=== PATIENT | male | born 1955 | race Caucasian/White ===

== ENCOUNTER → 2020-09-23 00:58 | Outpatient (CLI) | payer OTHER, SELFPAY ==
[2020-09-23 19:43] LABS: SARS-CoV-2 RNA PCR Negative
== END ==
PROVIDERS: PCP Family Medicine; Visit Provider Internal Medicine Gastroenterology
DX: Z01.812 Encounter for preprocedural laboratory examination (principal); Z20.822 Contact with and (suspected) exposure to COVID-19
CPT/HCPCS: C9803; U0003; U0005

== ENCOUNTER 2020-09-27 00:13 | Day surgery (SDC) | payer OTHER, SELFPAY ==
[2020-09-14 13:52] VITALS: BMI 31.1
[2020-09-27 06:49] VITALS: BP 124/72; PULSE 76; RESP 16; TEMP 36.2; O2SAT 100; BMI 29.9
[2020-09-27 07:02] LABS: Glucose Point of Care 145 (65-105)
[2020-09-27] MEDS: LACTATED RINGERS 1,000 ML 150 ML IV CONT (07:06)
--- NOTE | 2020-09-27 07:57 | WPDANESEPPF ---
Anes - Initial Pre Proc Eval Procedure: Operation Date: 09/27/20 08:00 Proposed Procedures p Screening Colonoscopy - Perez Cali MD Date/Time: 09/27/20 07:57 Surgeon: Perez Cali MD Pre Op Diagnosis: Neoplasm Screening, hx of rectal polyp Patient Data Age: 65 Gender: M Height: 6 ft 1 in Weight: 102.8 kg Last Vital Signs Temp 97.2 F L 09/27/20 06:49 Pulse 76 09/27/20 06:49 Resp 16 09/27/20 06:49 BP 124/72 09/27/20 06:49 Pulse Ox 100 09/27/20 06:49 Allergies Allergy/AdvReac Type Severity Reaction Status Date / Time No Known Allergies Allergy Verified 09/27/20 06:48 Home Medications Medication Instructions Recorded Confirmed Type pen needle, diabetic 31 gauge x #30 each 04/29/19 09/27/20 History 5/16 blood sugar diagnostic #100 each 08/19/19 09/27/20 Rx insulin aspart U-100 100 unit/mL See Rx Instructions SUB-Q TID #15 01/24/20 09/27/20 Rx (3 mL) subcutaneous pen ml lancets #100 ea 07/19/20 09/27/20 Rx desoximetasone 0.25 % topical cream 1 applic TOPICAL DAILY PRN 07/27/20 09/27/20 History sodium,potassium,mag sulfates 17.5 See Rx Instructions PO .COMPLEX 08/10/20 09/27/20 Rx gram-3.13 gram-1.6 gram oral soln #354 ml cyanocobalamin (vitamin B-12) 1,000 mcg IM WEEKLY #4 vial 09/11/20 09/27/20 Rx 1,000 mcg/mL injection solution Janumet XR 1 tablet PO DAILY 09/14/20 09/27/20 History Jardiance 10 mg PO DAILY 09/14/20 09/27/20 History Levemir FlexTouch U-100 Insuln 23 unit SUBCUT DAILY 09/14/20 09/27/20 History amlodipine 5 mg PO DAILY 09/14/20 09/27/20 History aspirin [Roger Chewable Aspirin] 81 mg PO DAILY 09/14/20 09/27/20 History atorvastatin 10 mg PO DAILY 09/14/20 09/27/20 History gabapentin 200 mg PO BID 09/14/20 09/27/20 History lisinopril-hydrochlorothiazide 1 tablet PO DAILY 09/14/20 09/27/20 History syringe with needle, safety 3 mL #50 ea 09/15/20 09/27/20 Rx 25 gauge x 1 Laboratory Tests 09/27/20 06:58 POC Capillary Glucose 145 mg/dl H mg/dl (65-105) Patient hx anesthesia problems: none Family hx anesthesia problems: none PMFSH Past Medical History Medical History (Updated 09/15/20 @ 14:34 by Prisca Bolden [facility]) B12 deficiency Body mass index (bmi) 30.0-30.9, adult (03/16/18) CKD (chronic kidney disease) stage 3, GFR 30-59 ml/min Diabetic peripheral neuropathy associated with type 2 diabetes mellitus Essential (primary) hypertension Hyperlipidemia, unspecified IDDM (insulin dependent diabetes mellitus) Recurrent cellulitis of lower extremity Surgical History Surgical History History of left knee surgery 1981 - removal of bone spurs History of surgery on right wrist 1997 - repair of tendon rupture Status post skin graft right lower extremity when 3 yrs old Family History Family History Father Family history of lung cancer Family history of malignant neoplasm Mother Family history of malignant neoplasm of ovary Family history of malignant neoplasm Family history of malignant neoplasm of breast in first degree relative Social History Social History Smoking status: Never smoker Alcohol intake: current Alcohol use details: MAYBE 1 PER MONTH Substance use: never Substance use type: does not use Living arrangements: with family Additional living arrangements comments: With Gender identity (if verbalized by the patient): Male Spiritual care concerns: No Anes - Eval Final PreProcedure Day of Procedure 09/27/20 07:57 Patient weight: obese Heart: regular rate and rhythm Lungs: clear to auscultation Airway: Mallampati scale class II Neurological: alert and oriented Last oral intake: >/= 8 hours ASA classification: III Emergent: no Anesthetic plan: proceed Anesthesia type and monitoring: gener
--- NOTE | 2020-09-27 08:01 | PM.HPGS ---
History of Present Illness History of Present Illness Consent: Risks, benefits, and alternatives have been discussed and questions answered. Patient agrees to proceed with procedure. Chief complaint: Neoplasm Screening, hx of rectal polyp Narrative: Manjeet Vinson is a 65 year old male here for screening colonoscopy, last one 12 years ago. Review of Systems Constitutional: Constitutional: Denies headache(s) and Denies weakness Eyes: Eyes: Denies blurry vision ENT: Reports Normal hearing present, Denies headache(s) and Denies neck pain Cardiovascular: Cardiovascular: Denies chest pain and Denies dyspnea Respiratory: Respiratory: Denies dyspnea Gastrointestinal: Gastrointestinal: Reports no additional gastrointestinal complaints Genitourinary: Genitourinary: Denies dysuria Musculoskeletal: Musculoskeletal: Denies neck pain Integumentary/Breasts: Skin/Breast: Denies dry skin Neurologic: Reports Normal hearing present, Denies headache(s) and Denies weakness Psychiatric: Psychiatric: Denies anxiety Endocrine: Endocrine: Denies change in body appearance Hematologic/Lymphatic: Hematologic/Lymphatic: Denies easy bleeding Allergic/Immunologic: Allergic/Immunologic: Denies urticaria PMFSH Past Medical History Medical History (Updated 09/15/20 @ 14:34 by Prisca Bolden [facility]) B12 deficiency Body mass index (bmi) 30.0-30.9, adult (03/16/18) CKD (chronic kidney disease) stage 3, GFR 30-59 ml/min Diabetic peripheral neuropathy associated with type 2 diabetes mellitus Essential (primary) hypertension Hyperlipidemia, unspecified IDDM (insulin dependent diabetes mellitus) Recurrent cellulitis of lower extremity Surgical History Surgical History History of left knee surgery 1981 - removal of bone spurs History of surgery on right wrist 1997 - repair of tendon rupture Status post skin graft right lower extremity when 3 yrs old Family History Family History Father Family history of lung cancer Family history of malignant neoplasm Mother Family history of malignant neoplasm of ovary Family history of malignant neoplasm Family history of malignant neoplasm of breast in first degree relative Social History Social History Smoking status: Never smoker Alcohol intake: current Alcohol use details: MAYBE 1 PER MONTH Substance use: never Substance use type: does not use Living arrangements: with family Additional living arrangements comments: With Gender identity (if verbalized by the patient): Male Spiritual care concerns: No Meds Home Medications and Allergies Home Medications Medication Instructions Recorded Confirmed Type pen needle, diabetic 31 gauge x #30 each 04/29/19 09/27/20 History 5/16 blood sugar diagnostic #100 each 08/19/19 09/27/20 Rx insulin aspart U-100 100 unit/mL See Rx Instructions SUB-Q TID #15 01/24/20 09/27/20 Rx (3 mL) subcutaneous pen ml lancets #100 ea 07/19/20 09/27/20 Rx desoximetasone 0.25 % topical cream 1 applic TOPICAL DAILY PRN 07/27/20 09/27/20 History sodium,potassium,mag sulfates 17.5 See Rx Instructions PO .COMPLEX 08/10/20 09/27/20 Rx gram-3.13 gram-1.6 gram oral soln #354 ml cyanocobalamin (vitamin B-12) 1,000 mcg IM WEEKLY #4 vial 09/11/20 09/27/20 Rx 1,000 mcg/mL injection solution Janumet XR 1 tablet PO DAILY 09/14/20 09/27/20 History Jardiance 10 mg PO DAILY 09/14/20 09/27/20 History Levemir FlexTouch U-100 Insuln 23 unit SUBCUT DAILY 09/14/20 09/27/20 History amlodipine 5 mg PO DAILY 09/14/20 09/27/20 History aspirin [Roger Chewable Aspirin] 81 mg PO DAILY 09/14/20 09/27/20 History atorvastatin 10 mg PO DAILY 09/14/20 09/27/20 History gabapentin 200 mg PO BID 09/14/20 09/27/20 History lisinopril-hydrochlorothiazide 1 tablet PO DAILY 09/14/20 09/27/20 Hist
[2020-09-27 08:30] VITALS: BP 97/62; PULSE 72; RESP 18; O2SAT 96
[2020-09-27 08:40] VITALS: BP 121/78; PULSE 68; RESP 20; O2SAT 98
[2020-09-27 08:50] VITALS: BP 115/80; PULSE 65; RESP 12; O2SAT 100
== END 2020-09-27 09:00 | disposition home or self-care (01) ==
PROVIDERS: PCP Family Medicine; Visit Provider Internal Medicine Gastroenterology
PROC: 0DJD8ZZ Inspection of Lower Intestinal Tract, Via Natural or Artificial Opening Endoscopic (ICD-10-PCS; CPT 45378; principal; 2020-09-27 08:00)
DX: Z12.11 Encounter for screening for malignant neoplasm of colon (principal); K64.8 Other hemorrhoids; I12.9 Hypertensive chronic kidney disease with stage 1 through stage 4 chronic kidney disease, or unspecified chronic kidney disease; E11.22 Type 2 diabetes mellitus with diabetic chronic kidney disease; E11.42 Type 2 diabetes mellitus with diabetic polyneuropathy; N18.30 Chronic kidney disease, stage 3 unspecified; E78.5 Hyperlipidemia, unspecified; E53.8 Deficiency of other specified B group vitamins; E66.9 Obesity, unspecified; Z68.29 Body mass index [BMI] 29.0-29.9, adult; Z79.4 Long term (current) use of insulin; Z79.84 Long term (current) use of oral hypoglycemic drugs; Z79.82 Long term (current) use of aspirin
CPT/HCPCS: 45378; 82948; J2704; J7120

== ENCOUNTER 2021-02-02 14:00 | Outpatient (CLI) | payer OTHER, SELFPAY ==
--- NOTE | ~2021-02-02 | US_ITS ---
EXAMINATION: US art doppler w press LE BI DATE: 02/02/2021 14:49 INDICATION: Peripheral arterial occlusive disease with ulcerations at the left foot. TECHNIQUE: Segmental pressures and plethysmographic and Doppler waveforms of the brachial and lower e xtremity arteries were obtained. COMPARISON: 11/09/2018 FINDINGS: Right and left brachial artery pressures of 107 mm Hg and 123 mm Hg, respectively, are concordant (no rmal difference <= 30 mmHg). The right and left high-thigh pressure indices are 1.24 and 1.24, respec tively (normal > 1.2). The right ankle-brachial index (LUIS) is 1.06 (normal >= 0.9-1). The right great toe-brachial index (T BI) is 0.89 (normal >= 0.6-0.8). The right lower extremity segmental pressure gradients are normal (n ormal gradients <= 20-30 mmHg between adjacent levels on the same leg or the same levels on the two l egs). Arterial waveforms are biphasic at the right dorsalis pedis artery and triphasic at the remaini ng arteries in the right lower limb with brisk systolic upstrokes throughout. The left LUIS is 1.10. The left TBI is 0.77. The left lower extremity segmental pressure gradients are normal. Arterial waveforms are triphasic with brisk systolic upstrokes throughout. IMPRESSION: 1. Normal LUIS's and TBI's bilaterally. No significant arterial occlusive disease. Reviewed, dictated and finalized at location B. IMPRESSION: 1. Normal LUIS's and TBI's bilaterally. No significant arterial occlusive diseas e.
== END 2021-02-02 14:01 | disposition home or self-care (01) ==
PROVIDERS: PCP Family Medicine; Visit Provider Podiatrist Foot & Ankle Surgery
DX: I73.9 Peripheral vascular disease, unspecified (principal)
CPT/HCPCS: 93923

== ENCOUNTER 2021-03-10 10:43 | Outpatient (CLI) | payer OTHER, SELFPAY ==
[2021-03-10 12:15] LABS: Alanine Aminotransferase 23 U/L (4-50); Albumin Level 4.3 g/dL (3.5-5.1); Alkaline Phosphatase 84 U/L (38-126); Anion Gap 8 mmol/L (8-16); Aspartate Amino Transferase 35 U/L (17-59); Bilirubin,Total 0.6 mg/dL (0.2-1.3); Blood Urea Nitrogen 18 mg/dL (9-20); Carbon Dioxide 29 mmol/L (22-30); Chloride 105 mmol/L (98-107); Cholesterol 134 mg/dL (0-200); Estimated Glomerular Filt Rate > 60; Glucose 121 mg/dL (65-110); HDL Direct 42 mg/dL; Potassium 4.1 mmol/L (3.4-5.0); Sodium 142 mmol/L (137-145); Triglycerides 113 mg/dL (<150)
[2021-03-10 12:17] LABS: Basophils Absolute Auto 0.1 K/mm3 (0.0-0.1); Eosinophils Absolute Auto 0.1 K/mm3 (0-0.3); Eosinophils Percent Auto 1.5 % (0-4.4); Hematocrit 45.7 % (42.0-52.0); Hemoglobin 14.1 g/dL (14.0-18.0); Immature Granulocyte Absolute 0.04 K/mm3 (0.00-0.031); Immature Granulocyte Percent A 0.6 % (0-0.5); Lymphocytes Percent Auto 26.2 % (18.3-44.2); Mean Corpuscular HGB Conc 30.9 g/dl (32-36); Mean Corpuscular Hemoglobin 28.8 pg (26-34); Mean Corpuscular Volume 93.5 fl (80-100); Mean Platelet Volume 10.8 fl (7.4-10.4); Monocytes Absolute Auto 0.6 K/mm3 (0.1-0.6); Monocytes Percent Auto 7.7 % (2.6-8.5); Neutrophils Absolute Auto 4.6 K/mm3 (1.3-6.7); Platelet Count Result 203 k/mm3 (150-375); Red Blood Count 4.89 M/mm3 (4.6-6.20); Red Cell Distribution Width 14.5 % (11.5-14.5); White Blood Count 7.3 K/mm3 (4.5-10.0)
[2021-03-10 12:25] LABS: LDL Cholesterol Direct 68 mg/dL
[2021-03-10 13:13] LABS: Creatinine Urine 118.2 mg/dL
[2021-03-10 14:14] LABS: MALB Creatinine Ratio < 5.1 mg/g (0-30); Microalbumin Urine Random < 6.0 mg/L (0-16.7)
== END 2021-03-10 10:44 | disposition home or self-care (01) ==
PROVIDERS: PCP Family Medicine; Visit Provider Nurse Practitioner
DX: E78.5 Hyperlipidemia, unspecified (principal); I10 Essential (primary) hypertension; E11.9 Type 2 diabetes mellitus without complications
CPT/HCPCS: 36415; 80053; 80061; 82043; 83036; 85025

== ENCOUNTER 2021-03-12 08:43 | Outpatient (CLI) | payer OTHER, SELFPAY ==
--- NOTE | ~2021-03-12 | NM_ITS ---
EXAMINATION: NM luz elena stress w perfusion DATE: 03/12/2021 10:44 INDICATION: Abnormal EKG TECHNIQUE: Rest images were obtained following intravenous administration of 9 mCi Tc99m tetrofosmin (Myoview). The patient was infused intravenously with Lexiscan (Regadenoson). Then, 38.4 mCi Tc99m te trofosmin (Myoview) was administered intravenously, and stress images were obtained in supine positio n. Additional prone post stress images were obtained. Data was reconstructed into short axis and hori zontal and vertical long axis SPECT images. Gated SPECT images were also obtained. COMPARISON: None. FINDINGS: There is no definite reversible or fixed perfusion abnormality to suggest ischemia or infar ction. There is normal left ventricular chamber size, wall motion and ejection fraction. Left ventr icular ejection fraction measures >70%. IMPRESSION: 1. Normal myocardial perfusion at rest and during stress. 2. Left ventricular ejection fraction measuring >70%. Reviewed, dictated and finalized at location B.
--- NOTE | 2021-03-12 08:49 | EST_ITS ---
Patient Info Name: Manjeet Vinson Age: 65 years : 1955 Gender: Male Ht: 74 in Wt: 238 lbs BSA: 2.40 m2 HR: 71 bpm BP: 134 / 77 mmHg Heart Rhythm: Sinus Rhythm Exam Date: 03/12/2021 9:44 AM Exam Location: [facility] Stress Patient Status: Outpatient Admit Date: 03/12/2021 Staff Ordering Physician: Ellyn Salmeron NP Attending Provider: Ellyn Salmeron NP Exercise Technologist: Yue Orozco CT Exercise Physician: Howard Crandall MD Exam Type: CA stress luz elena w NM Study Info Indications R94.31 - Abnormal electrocardiogram ECG EKG A regadenoson stress test was performed. Summary 1. Please correlate with nuclear medicine images, reported separately. 2. No abnormal ST-T wave changes with lexiscan. Protocol: Lexiscan Stress ECG Details Stage: REST Duration (min): 0 min : 52 sec HR (bpm): 72 SBP (mmHg): 124 DBP (mmHg): 71 Stage: REST Duration (min): 6 min : 50 sec HR (bpm): 72 SBP (mmHg): 124 DBP (mmHg): 71 Stage: STAGE 1 Duration (min): 1 min : 0 sec HR (bpm): 96 SBP (mmHg): 134 DBP (mmHg): 77 Stage: RECOVERY Duration (min): 1 min : 0 sec HR (bpm): 89 SBP (mmHg): 134 DBP (mmHg): 77 Stage: RECOVERY Duration (min): 2 min : 0 sec HR (bpm): 91 SBP (mmHg): 134 DBP (mmHg): 77 Stage: RECOVERY Duration (min): 3 min : 0 sec HR (bpm): 87 SBP (mmHg): 131 DBP (mmHg): 68 Stage: RECOVERY Duration (min): 3 min : 7 sec HR (bpm): 88 SBP (mmHg): 131 DBP (mmHg): 68 Rest HR: 72 bpm Peak HR: 96 bpm Rest Sys BP: 124 mmHg Peak Sys BP: 134 mmHg Max Pred HR: 155 bpm % Max Pred HR: 62 % Target HR: 132 bpm Max RPP: 12,864 bpm*mmHg Target HR Summary: Hemodynamic response to exercise was normal BP Response: Normal blood pressure response Termination Reason: Completed protocol Cardiac Symptoms: None Total Time: 1 min : 0 sec Rest Levy BP: 71 mmHg Peak Levy BP: 77 mmHg Total Dose: 0.4 mg Resting ECG Normal sinus rhythm - normal ECG. Stress ECG No abnormal ST/T wave changes with exercise. Arrhythmias None. Report Signatures
== END 2021-03-12 08:44 | disposition home or self-care (01) ==
LOC: ANHCARD 08:46
PROVIDERS: PCP Family Medicine; Visit Provider Nurse Practitioner
DX: R94.31 Abnormal electrocardiogram [ECG] [EKG] (principal)
CPT/HCPCS: 78452; 93017; A9502

== ENCOUNTER 2021-06-18 16:52 | Outpatient (CLI) | payer OTHER, SELFPAY ==
--- NOTE | ~2021-06-18 | US_ITS ---
EXAMINATION: US venous doppler [facility] DATE: 06/18/2021 17:40 INDICATION: Lower limb pain TECHNIQUE: Sullivan scale images without and with compression and Doppler images of the bilateral lower e xtremity veins were obtained. COMPARISON: None FINDINGS: The right common femoral vein, profunda femoral vein, femoral vein, popliteal vein, peroneal trunk, p osterior tibial veins, and greater saphenous vein are patent. The left common femoral vein, profunda femoral vein, femoral vein, popliteal vein, peroneal trunk, po sterior tibial veins, and greater saphenous vein are patent. IMPRESSION: 1. Patent bilateral lower extremity veins. No evidence of deep venous thrombosis. Reviewed, dictated and finalized at location F. [employer] IMPRESSION: 1. Patent bilateral lower extremity veins. No evidence of deep venous thrombosi s.
== END 2021-06-18 16:53 | disposition home or self-care (01) ==
PROVIDERS: PCP Family Medicine; Visit Provider Podiatrist Foot & Ankle Surgery
DX: M79.662 Pain in left lower leg (principal); M79.661 Pain in right lower leg
CPT/HCPCS: 93970

== ENCOUNTER 2021-08-07 11:25 | Outpatient (RCR) | payer OTHER, SELFPAY ==
[2021-08-07 12:00] VITALS: BMI 30.4
== END 2021-10-22 09:04 | disposition home or self-care (01) ==
LOC: ANHWOC 11:25
PROVIDERS: PCP Family Medicine; Visit Provider Family Medicine
DX: E11.621 Type 2 diabetes mellitus with foot ulcer (principal); L97.529 Non-pressure chronic ulcer of other part of left foot with unspecified severity
CPT/HCPCS: 99213; G0463

== ENCOUNTER 2021-09-30 14:20 | Emergency (ER) | payer OTHER, SELFPAY ==
[2021-09-30 15:06] VITALS: BP 114/62; PULSE 91; RESP 16; TEMP 37.3; O2SAT 95
--- NOTE | 2021-09-30 16:01 | ED.GENADULT ---
HPI - General Adult General Chief complaint: Extremity Problem,Nontraumatic Stated complaint: L LEG REDNESS Source: patient Mode of arrival: ambulatory Limitations: no limitations History of Present Illness HPI narrative: Patient presents for evaluation of redness to the left leg. Symptom onset today. He states he had a temperature of 102.0 Fahrenheit yesterday. He has a hx of cellulitis in lower extremities. His current symptoms are consistent with those experienced in the past with cellulitis. He states he has a nonhealing ulcer to the left foot for which he sees mine shifter, Dr Bunn. He states he has a hx of Charcot foot and had surgical intervention in March of last year. He has had cellulitis three times in the left leg following that surgery. In the past he has been treated with Augmentin which seems to help. He noticed the redness today while in the shower. He denies any associated pain. No drainage from the leg. He had chills yesterday but has not experienced any today. No nausea or vomiting. He is diabetic. He is compliant with his janumet, jardiance 10mg daily, levemir 20 units daily and novolog 5-6 units TID with meals. He checked his BS yesterday and states reading was over 200. He checked today and reading was 180. He does not smoke. No additional complaints or concerns. Related Data Home Medications Medication Instructions Recorded Confirmed atorvastatin 10 mg tablet 10 mg PO QHS tablet 07/31/21 09/30/21 insulin detemir U-100 [Levemir 20 unit SUBCUT HS 08/07/21 09/30/21 U-100 Insulin] sitagliptin-metformin [Janumet] 1 tablet PO BID 08/07/21 09/30/21 Allergies Allergy/AdvReac Type Severity Reaction Status Date / Time No Known Allergies Allergy Verified 09/30/21 16:07 Review of Systems Review of Systems: CONSTITUTIONAL: Reports fever and chills yesterday, now resolved. Denies sweats. EYES: Denies visual changes, redness, or discharge. ENT: Denies rhinorrhea, congestion, sore throat, or otalgia. CARDIOVASCULAR: Denies chest pain, palpitations, or edema. RESPIRATORY: Denies cough or dyspnea. GASTROINTESTINAL: Denies abdominal pain, nausea, vomiting, or diarrhea. GENITOURINARY: Denies dysuria or hematuria. SKIN: Reports nonhealing ulcer to plantar aspect of left foot. Reports redness to left lower leg. Denies rash or itching. MUSCULOSKELETAL: Denies back pain, joint pain, or myalgia. NEUROLOGIC: Denies headache, numbness, dizziness, or weakness. PSYCHIATRIC: Denies anxiety or depression. [facility] Past Medical History Medical History B12 deficiency CKD (chronic kidney disease) stage 3, GFR 30-59 ml/min Diabetic peripheral neuropathy associated with type 2 diabetes mellitus Essential (primary) hypertension Hyperlipidemia, unspecified IDDM (insulin dependent diabetes mellitus) Recurrent cellulitis of lower extremity Surgical History Surgical History History of left knee surgery 1981 - removal of bone spurs History of surgery on right wrist 1997 - repair of tendon rupture S/P foot surgery, left (~03/2021) Status post skin graft right lower extremity when 3 yrs old Family History Family History Father Family history of lung cancer Family history of malignant neoplasm Mother Family history of malignant neoplasm of ovary Family history of malignant neoplasm Family history of malignant neoplasm of breast in first degree relative Social History Social History Alcohol intake: current Alcohol use details: MAYBE 1 PER MONTH Substance use: never Substance use type: does not use Additional living arrangements comments: With Gender identity (if verbalized by the patient): Male Spiritual care concerns: No Exam Narrative: GEN
== END 2021-09-30 16:15 | disposition home or self-care (01) ==
PROVIDERS: Emergency Provider Nurse Practitioner; PCP Family Medicine
DX: L03.116 Cellulitis of left lower limb (principal); I12.9 Hypertensive chronic kidney disease with stage 1 through stage 4 chronic kidney disease, or unspecified chronic kidney disease; E11.22 Type 2 diabetes mellitus with diabetic chronic kidney disease; N18.30 Chronic kidney disease, stage 3 unspecified; E11.42 Type 2 diabetes mellitus with diabetic polyneuropathy; E78.5 Hyperlipidemia, unspecified; Z79.4 Long term (current) use of insulin; Z79.84 Long term (current) use of oral hypoglycemic drugs
CPT/HCPCS: 99213; G0463

== ENCOUNTER → 2022-01-08 14:48 | Outpatient (CLI) | payer OTHER, SELFPAY ==
--- NOTE | ~2022-01-08 | MR_ITS ---
EXAMINATION: MR foot LT wo con DATE: 01/08/2022 15:47 INDICATION: Acute osteomyelitis at the left foot TECHNIQUE: Magnetic resonance imaging (MRI) of the left fore/mid foot was performed without intraveno us contrast. Sequences included axial, sagittal and coronal T1-weighted FSE, and axial and sagittal f luid sensitive FSE STIR, axial T2-weighted FS FSE and coronal PD-weighted FS FSE. COMPARISON: None FINDINGS: There is an ulceration plantar to the first metatarsophalangeal joint with approximately 6 mm diamete r defect in the plantar fascial with loss of T1 fat signal and increased fluid signal in the underlyi ng fat. No abscess. No cortical erosion or geographic loss of T1 marrow fat signal to suggest osteomy elitis in the visualized bones. Bone alignment is normal. No fracture. Polyarticular osteoarthritis, moderate to severe with cortical irregularity and subarticular cystic and edema-like changes at the n aviculocuneiform, at the tarsal metatarsal joints and first metatarsophalangeal joints and mild at se veral of the interphalangeal joints. No joint effusions. Plantar Lisfranc ligament is normal. There i s heterotopic ossification along the dorsal component of the Lisfranc ligament which may represents a couple of chronic injury. Collateral ligament complexes at the metatarsophalangeal and interphalange al joints appear normal. The flexor and extensor tendons are normal with no tenosynovitis. Fatty atro phy and diffuse muscle edema involving the intrinsic musculature of the foot consistent with likely a cute on chronic denervation change related to diabetic neuropathy. IMPRESSION: 1. Skin ulceration plantar to the first metatarsophalangeal joint with no associated abscess, osteoly sis or joint effusion to suggest a septic arthritis. 2. 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 Reviewed, dictated and finalized at location A. IMPRESSION: 1. Skin ulceration plantar to the first metatarsophalangeal joint with no assoc iated abscess, osteolysis or joint effusion to suggest a septic arthritis. 2. 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
== END ==
PROVIDERS: PCP Family Medicine; Visit Provider Podiatrist Foot & Ankle Surgery
DX: M86.172 Other acute osteomyelitis, left ankle and foot (principal); M19.072 Primary osteoarthritis, left ankle and foot
CPT/HCPCS: 73718

== ENCOUNTER 2022-01-29 11:24 | Outpatient (CLI) | payer OTHER, SELFPAY ==
[2022-01-29 19:06] LABS: Alanine Aminotransferase 21 U/L (6-50); Albumin Level 4.2 g/dL (3.5-5.1); Alkaline Phosphatase 80 U/L (38-126); Anion Gap 11 mmol/L (8-16); Aspartate Amino Transferase 34 U/L (17-59); Bilirubin,Total 0.5 mg/dL (0.2-1.3); Blood Urea Nitrogen 20 mg/dL (9-20); Calcium 8.9 mg/dL (8.4-10.2); Carbon Dioxide 27 mmol/L (22-30); Chloride 102 mmol/L (98-107); Estimated Glomerular Filt Rate 55; Glucose 126 mg/dL (65-110); Hemoglobin A1C 7.4 % (<5.7); Potassium 4.1 mmol/L (3.4-5.0); Sodium 140 mmol/L (137-145)
[2022-01-29 19:29] LABS: Vitamin D 25 Hydroxy 49.4 ng/mL
== END 2022-01-29 11:25 | disposition home or self-care (01) ==
LOC: ANHGOSHLAB 11:26
PROVIDERS: PCP Family Medicine; Visit Provider Family Medicine
DX: E11.9 Type 2 diabetes mellitus without complications (principal); I10 Essential (primary) hypertension; E78.5 Hyperlipidemia, unspecified; E55.9 Vitamin D deficiency, unspecified
CPT/HCPCS: 36415; 80053; 82306; 83036

== ENCOUNTER 2022-02-27 14:08 | Observation (INO) | payer OTHER, SELFPAY ==
[2022-02-27] VITALS (8 sets, daily range): BP systolic 92–116; BP diastolic 53–70; PULSE 77–91; RESP 18–24; TEMP 36.1–38.2; O2SAT 93–97; BMI 29.9
--- NOTE | ~2022-02-27 | MR_ITS ---
EXAMINATION: MR foot LT wo/w con DATE: 02/28/2022 15:19 INDICATION: Left foot swelling and erythema. TECHNIQUE: Magnetic resonance imaging (MRI) of the left foot was performed without and with 20 mL Mul tiHance intravenous contrast. COMPARISON: Left foot MRI 01/08/2022, radiographs 02/27/2022 FINDINGS: There is a tear of Lisfranc ligament with lateral subluxation of second metatarsal with res pect to intermediate cuneiform. No fracture. There is severe osteoarthritis of first-third tarsometat arsal joints joints and first metatarsophalangeal joint. There is mild osteoarthritis of many of the interphalangeal joints. There is an ulcer plantar to first proximal phalanx. There is cellulitis invo lving the great toe. There is nonenhancement of some of the plantar soft tissues between the first an d second digits, consistent with necrosis. There is mild tenosynovitis of flexor hallucis longus. The re is widespread moderate to severe fatty atrophy of the musculature with increased T2-weighted signa l intensity of the musculature, consistent with subacute on chronic denervation. IMPRESSION: 1. Ulcer plantar to first proximal phalanx with cellulitis and soft tissue necrosis. No evidence of o steomyelitis. 2. 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 Reviewed, dictated and finalized at location A. IMPRESSION: 1. Ulcer plantar to first proximal phalanx with cellulitis and soft tissue necr osis. No evidence of osteomyelitis. 2. 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
--- NOTE | ~2022-02-27 | XR_ITS ---
EXAMINATION: XR chest 1V portable Exam Date/Time: 02/27/2022 18:00 CDT HISTORY: hypoxia, fever Comparison: 11/29/2015. RESULT: Lines, tubes, and devices: None. Lungs and pleura: Low volumes. Right hemidiaphragm elevation. Streaky and linear bibasilar opacities . Cardiomediastinal silhouette: Stable. Other: No acute osseous or upper abdominal finding. IMPRESSION: Low lung volumes with bibasilar scar/atelectasis. Infection is not excluded. Reviewed, dictated and finalized at location K.
--- NOTE | ~2022-02-27 | XR_ITS ---
XR foot LT min 3V DATE: 02/27/2022 17:31 INDICATION: Suspected diabetic foot ulcer, plantar surface, first digit TECHNIQUE: 4 views of left foot COMPARISON: 01/08/2022 MR left foot FINDINGS: There is severe soft tissue swelling of the first digit. There is a prominent ulceration al kenneth the plantar aspect of the base of the first toe anterior to the base of the proximal phalanx. No fracture or dislocation, periosteal reaction or bone destruction is evident. There is mild osteoar thritis at the first metatarsophalangeal joint. There is more prominent osteoarthritic change at the tarsal and tarsometatarsal joints, very possibly due to neuropathic changes associated with the history of diabetes. Prominent plantar and mild posterior calcaneal enthesopathy. IMPRESSION: Severe soft tissue swelling of the first digit and prominent ulceration along the plantar aspect of the base of the first digit First metatarsophalangeal joint space is well preserved, without evidence of septic arthritis. 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 IMPRESSION: Severe soft tissue swelling of the first digit and prominent ulcera tion along the plantar aspect of the base of the first digit First metatarsophalangeal joint space is well preserved, without evidence of se ptic arthritis. 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
--- NOTE | 2022-02-27 16:05 | ED.FEVER ---
HPI - Fever General Chief Complaint: Fever Stated Complaint: fever, poss L foot infection Time Seen by Provider: 02/27/22 15:30 History of Present Illness HPI Narrative: 66-year-old male history of diabetic foot wound to the left foot presents to the emergency room for evaluation of a low-grade fever and pain to his left foot. Patient states he developed low-grade fever yesterday, coincided with redness and swelling and tenderness to his left foot. Patient states he has been going to podiatry for his chronic left foot ulcer. Related Data Home Medications Medication Instructions Recorded Confirmed sitagliptin 50 mg-metformin 1,000 1 tablet PO BID 08/07/21 01/29/22 mg tablet (Janumet) Allergies Allergy/AdvReac Type Severity Reaction Status Date / Time No Known Allergies Allergy Verified 01/29/22 10:55 Review of Systems Review of Systems: CONSTITUTIONAL: Reports fever EYES: Denies visual changes, redness, or discharge. ENT: Denies rhinorrhea, congestion, sore throat, or otalgia. CARDIOVASCULAR: Denies chest pain, palpitations, or edema. RESPIRATORY: Denies cough or dyspnea. GASTROINTESTINAL: Denies abdominal pain, nausea, vomiting, or diarrhea. GENITOURINARY: Denies dysuria or hematuria. SKIN: Denies rash or itching. MUSCULOSKELETAL: Reports left foot pain NEUROLOGIC: Denies headache, numbness, dizziness, or weakness. PSYCHIATRIC: Denies anxiety or depression. [facility] Past Medical History Medical History B12 deficiency CKD (chronic kidney disease) stage 3, GFR 30-59 ml/min Diabetic peripheral neuropathy associated with type 2 diabetes mellitus Essential (primary) hypertension Hyperlipidemia, unspecified IDDM (insulin dependent diabetes mellitus) Recurrent cellulitis of lower extremity Vitamin D deficiency Surgical History Surgical History History of left knee surgery 1981 - removal of bone spurs History of surgery on right wrist 1997 - repair of tendon rupture S/P foot surgery, left (~03/2021) Status post skin graft right lower extremity when 3 yrs old Family History Family History Father Family history of lung cancer Family history of malignant neoplasm Mother Family history of malignant neoplasm of ovary Family history of malignant neoplasm Family history of malignant neoplasm of breast in first degree relative Social History Social History Smoking status: Never smoker Alcohol intake: current Alcohol use details: MAYBE 1 PER MONTH Substance use: never Substance use type: does not use Additional living arrangements comments: With Gender identity (if verbalized by the patient): Male Spiritual care concerns: No Exam Narrative: GENERAL: Well-appearing, well-nourished, no physical limitations, and in no acute distress. HEAD: Normocephalic, atraumatic. EYES: Conjunctivae normal, PERRLA and EOMI. CHEST: Clear to auscultation. No respiratory distress. No wheezes rales or rhonchi. HEART: Regular rate and rhythm. No murmur heard. Normal peripheral pulses. ABDOMEN: Soft, nontender, nondistended, normal active bowel sounds. EXTREMITIES: LLE: Tenderness, swelling, erythema of the left foot extending up into the [place] SKIN: left foot: 1.5 cm circular ulceration over the fibular sesamoid of the plantar surface with circumferential erythema NEURO: No focal deficits. Alert and oriented x3. MAEW. CN's II-XI intact bilaterally, normal gait PSYCH: Cooperative. Normal mood and affect. Course RESIDENT PROGRAM SPECIALIST/PA Physician Supervision 1800: Discussed case with Dr. Bunn. He is recommending patient get started on Augmentin and will follow him outpatient in 1 to 2 days. 1815: Upon reexamination of the patient, it was noted that his oxygen level on room air was at 88%. Chest x-ray wa
[2022-02-27 16:55] LABS: Basophils Absolute Auto 0.1 K/mm3 (0.0-0.1); Basophils Percent Auto 0.3 % (0.2-1.2); Eosinophils Percent Auto 0.2 % (0-4.4); Hematocrit 37.9 % (42.0-52.0); Hemoglobin 12.3 g/dL (14.0-18.0); Immature Granulocyte Absolute 0.12 K/mm3 (0.00-0.031); Immature Granulocyte Percent A 0.7 % (0-0.5); Lymphocytes Percent Auto 6.8 % (18.3-44.2); Mean Corpuscular HGB Conc 32.5 g/dl (32-36); Mean Corpuscular Hemoglobin 29.5 pg (26-34); Mean Corpuscular Volume 90.9 fl (80-100); Mean Platelet Volume 9.8 fl (7.4-10.4); Monocytes Absolute Auto 1.4 K/mm3 (0.1-0.6); Monocytes Percent Auto 7.9 % (2.6-8.5); Neutrophils Absolute Auto 14.9 K/mm3 (1.3-6.7); Neutrophils Percent Auto 84.1 % (45.5-73.1); Platelet Count Result 211 k/mm3 (150-375); Red Blood Count 4.17 M/mm3 (4.6-6.20); Red Cell Distribution Width 14.5 % (11.5-14.5); White Blood Count 17.7 K/mm3 (4.5-10.0)
[2022-02-27 17:04] LABS: Lactic Acid Reflex 1.1 mmol/L (0.7-2.0)
[2022-02-27 17:07] LABS: Alanine Aminotransferase 21 U/L (6-50); Albumin Level 3.7 g/dL (3.5-5.1); Alkaline Phosphatase 80 U/L (38-126); Anion Gap 10 mmol/L (8-16); Aspartate Amino Transferase 20 U/L (17-59); Bilirubin,Total 0.8 mg/dL (0.2-1.3); Blood Urea Nitrogen 17 mg/dL (9-20); Calcium 8.8 mg/dL (8.4-10.2); Carbon Dioxide 27 mmol/L (22-30); Chloride 100 mmol/L (98-107); Estimated CRCL calculation 54 ml/min; Estimated Glomerular Filt Rate 51; Glucose 122 mg/dL (65-110); Potassium 3.4 mmol/L (3.4-5.0); Sodium 137 mmol/L (137-145)
[2022-02-27] MEDS: SODIUM CHLORIDE 0.9% IV 1,000 ML 999 ML IV CONT (18:30)
[2022-02-27] MEDS: ACETAMINOPHEN 500 MG TABLET 1000 MG PO (18:30)
[2022-02-27] MEDS: metroNIDAZOLE 500 MG/ISO 100ML 500 MG/100 ML BAG 100 MG IVPB (19:39)
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
[2022-02-27 20:19] LABS: SARS-CoV-2 RNA PCR Negative
--- NOTE | 2022-02-27 21:33 | ADMGEN ---
This patient, Manjeet Vinson, was admitted to 3 Med Surg Room 327-01. Patient/family oriented to hospital policies and general routines including ID bracelet, bed and alarms, visiting hours, pain management, procedures, bathroom and other care routines, personal items, smoking policy, room service/diet, and visiting hours. Information on how to activate the Rapid Response Team has been discussed. Patient/Family are encouraged to report perceived risks to care and to ask questions if they do not understand what they are told or what they should do.
[2022-02-28] VITALS (9 sets, daily range): BP systolic 95–154; BP diastolic 53–72; PULSE 73–82; RESP 18–22; TEMP 35.7–36.2; O2SAT 94–98
[2022-02-28 00:03] LABS: Glucose Point of Care 200 mg/dl (65-105)
[2022-02-28] MEDS: metroNIDAZOLE 500 MG/ISO 100ML 500 MG/100 ML BAG 100 MG IVPB ×3 (03:13→18:49)
[2022-02-28 06:24] LABS: Basophils Absolute Auto 0.1 K/mm3 (0.0-0.1); Basophils Percent Auto 0.4 % (0.2-1.2); Eosinophils Absolute Auto 0.1 K/mm3 (0-0.3); Eosinophils Percent Auto 0.9 % (0-4.4); Hematocrit 35.7 % (42.0-52.0); Hemoglobin 11.3 g/dL (14.0-18.0); Immature Granulocyte Absolute 0.11 K/mm3 (0.00-0.031); Immature Granulocyte Percent A 0.8 % (0-0.5); Lymphocytes Absolute Auto 1.11 K/mm3 (0.9-3.2); Lymphocytes Percent Auto 7.6 % (18.3-44.2); Mean Corpuscular HGB Conc 31.7 g/dl (32-36); Mean Corpuscular Hemoglobin 29.3 pg (26-34); Mean Corpuscular Volume 92.5 fl (80-100); Mean Platelet Volume 10.2 fl (7.4-10.4); Monocytes Percent Auto 6.9 % (2.6-8.5); Neutrophils Absolute Auto 12.2 K/mm3 (1.3-6.7); Neutrophils Percent Auto 83.4 % (45.5-73.1); Platelet Count Result 197 k/mm3 (150-375); Red Blood Count 3.86 M/mm3 (4.6-6.20); Red Cell Distribution Width 14.6 % (11.5-14.5); White Blood Count 14.6 K/mm3 (4.5-10.0)
[2022-02-28 06:33] LABS: Lactic Acid Reflex 0.9 mmol/L (0.7-2.0)
[2022-02-28 07:01] LABS: Alanine Aminotransferase 20 U/L (6-50); Albumin Level 3.1 g/dL (3.5-5.1); Alkaline Phosphatase 84 U/L (38-126); Anion Gap 8 mmol/L (8-16); Aspartate Amino Transferase 21 U/L (17-59); Bilirubin,Total 0.6 mg/dL (0.2-1.3); Blood Urea Nitrogen 18 mg/dL (9-20); Calcium 8.3 mg/dL (8.4-10.2); Carbon Dioxide 26 mmol/L (22-30); Chloride 103 mmol/L (98-107); Estimated CRCL calculation 54 ml/min; Estimated Glomerular Filt Rate 51; Glucose 149 mg/dL (65-110); Potassium 3.6 mmol/L (3.4-5.0); Sodium 137 mmol/L (137-145)
[2022-02-28 07:36] LABS: CRP 30.6 mg/dL (<1.0)
[2022-02-28 08:07] LABS: Glucose Point of Care 144 mg/dl (65-105)
[2022-02-28] MEDS: INSULIN GLARGINE (*BKC) 100 UNITS/ML 23 UNITS SUB-Q (08:49)
[2022-02-28] MEDS: ENOXAPARIN 40 MG/0.4 ML SYRINGE SUB-Q (08:52)
[2022-02-28] MEDS: EMPAGLIFLOZIN 10 MG TABLET PO (08:56)
[2022-02-28] MEDS: CHOLECALCIFEROL 1,000 UNITS TABLET 2000 UNITS PO (08:56)
[2022-02-28] MEDS: ASPIRIN 81 MG CHEWABLE TABLET PO (08:56)
[2022-02-28] MEDS: GABAPENTIN 100 MG CAPSULE 200 MG PO ×2 (08:56→16:48)
[2022-02-28] MEDS: SILVERGEL (ELTA) 45 ML 1 APPLIC TOPICAL (10:09)
[2022-02-28 11:34] LABS: Glucose Point of Care 155 mg/dl (65-105)
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
--- NOTE | 2022-02-28 15:04 | PM.IMPN ---
Progress Note: A&P Assessment and Plan (1) Cellulitis: Code(s): L03.90 - Cellulitis, unspecified Status: Acute Assessment and Plan: -diabetic foot ulcer protocol started with cefepime, Flagyl and vancomycin. - Wound and blood cultures pending. -wound care consult performed, continue wound gel and dressing as ordered. - Consult surgery for possible debridement. (2) Diabetic ulcer of left foot: Code(s): E11.621 - Type 2 diabetes mellitus with foot ulcer; L97.529 - Non-pressure chronic ulcer of other part of left foot with unspecified severity Status: Acute Assessment and Plan: -as mentioned above the patient was started on cefepime, Flagyl, vancomycin as per diabetic foot ulcer protocol. -wound and blood cultures are pending. -Follow wound care orders. (3) IDDM (insulin dependent diabetes mellitus): Status: Acute Assessment and Plan: - Pt. is Type 2 DM with chcf use of Insulin. -continue with his long-acting insulin - Increase to moderate dose SSI for tighter glucose control. -his A1c was 7.4 last month. -Jardiance continue -Hypoglycemic protocol. (4) Diabetic peripheral neuropathy associated with type 2 diabetes mellitus: Code(s): E11.42 - Type 2 diabetes mellitus with diabetic polyneuropathy Status: Acute Assessment and Plan: -Continue current DM regimen. -Continue Gabapentin. (5) Hyperlipidemia, unspecified: Qualifiers: Hyperlipidemia type: unspecified Qualified Code(s): E78.5 - Hyperlipidemia, unspecified Code(s): E78.5 - Hyperlipidemia, unspecified Status: Acute Assessment and Plan: -Continue Statin therapy. (6) Essential (primary) hypertension: Code(s): I10 - Essential (primary) hypertension Status: Acute Assessment and Plan: - Hold Lisinopril as pt's BP has been running low. - Hold ACEI as pt's creatinine is 1.4. - Continue other home BP meds and monitor BP with VS, altering regimen as needed as the clinical scenario unfolds. - Hold Metformin. (7) CKD (chronic kidney disease) stage 3, GFR 30-59 ml/min: Qualifiers: Chronic kidney disease stage 3 subtype: unspecified whether 3a or 3b Qualified Code(s): N18.30 - Chronic kidney disease, stage 3 unspecified Code(s): N18.30 - Chronic kidney disease, stage 3 unspecified Status: Acute Assessment and Plan: - Metformin, Sitaglipin and Lisinopril are all held. - Monitor labs Time Spent With Patient Time with patient: 15 - 25 minutes Subjective Date/time seen: 02/28/22 1015 This pt. was examined at the bedside today in interval assessment since being admitted to the hospital with diabetic wounds to the bottom of his left foot. He has had as open wound to the bottom of the left foot on the ball of the foot since March of 2021 when he reportedly had a piece of bone removed because of infection in it. He has been followed by Dr. Bunn for the past couple of months for a wound between the left great toe and second toe that has continues to worsen, has started to turn dark and on Friday had worsening of redness, some drainage and worsening of edema prompting the patient to call his Podiatrists office who in turn sent him to the ER. Here he was admitted and is undergoing workup and treatment for diabetic foot wound. He has been evaluated by the wound nurse who recommends silver gel and gauze. In addition, they recommend possible further imaging. We have consulted surgery and will appreciate what they recommend for imaging as plain films do not identify any bony destruction. Pt. is receiving Vanc, Flagyl and Cefepime. He will have his glucose control tightened for healing optimization. He has no complaints today of pain, dyspnea or any other concerns. Review of Systems Review of Systems: All systems reviewed & are unremarkable except as noted in HPI and below Exam Const: General: comfortable and no acute distress
[2022-02-28 16:11] LABS: Glucose Point of Care 173 mg/dl (65-105)
[2022-02-28] MEDS: ATORVASTATIN 10 MG TABLET PO (20:06)
[2022-02-28 20:16] LABS: Glucose Point of Care 183 mg/dl (65-105)
[2022-03-01 00:36] VITALS: BP 121/64; PULSE 81; RESP 16; TEMP 36.4; O2SAT 94
[2022-03-01] MEDS: metroNIDAZOLE 500 MG/ISO 100ML 500 MG/100 ML BAG 100 MG IVPB ×3 (03:01→20:28)
[2022-03-01 06:42] VITALS: BP 125/65; PULSE 74; RESP 18; TEMP 36.5; O2SAT 96
[2022-03-01 07:10] LABS: Basophils Absolute Auto 0.1 K/mm3 (0.0-0.1); Basophils Percent Auto 0.6 % (0.2-1.2); Eosinophils Absolute Auto 0.2 K/mm3 (0-0.3); Hematocrit 35.5 % (42.0-52.0); Hemoglobin 11.2 g/dL (14.0-18.0); Immature Granulocyte Absolute 0.07 K/mm3 (0.00-0.031); Immature Granulocyte Percent A 0.7 % (0-0.5); Lymphocytes Absolute Auto 1.14 K/mm3 (0.9-3.2); Lymphocytes Percent Auto 11.8 % (18.3-44.2); Mean Corpuscular HGB Conc 31.5 g/dl (32-36); Mean Corpuscular Hemoglobin 29.2 pg (26-34); Mean Corpuscular Volume 92.4 fl (80-100); Mean Platelet Volume 10.2 fl (7.4-10.4); Monocytes Absolute Auto 0.7 K/mm3 (0.1-0.6); Monocytes Percent Auto 6.9 % (2.6-8.5); Neutrophils Absolute Auto 7.6 K/mm3 (1.3-6.7); Platelet Count Result 229 k/mm3 (150-375); Red Blood Count 3.84 M/mm3 (4.6-6.20); Red Cell Distribution Width 14.5 % (11.5-14.5); White Blood Count 9.7 K/mm3 (4.5-10.0)
[2022-03-01 07:16] LABS: Alanine Aminotransferase 18 U/L (6-50); Albumin Level 3.1 g/dL (3.5-5.1); Alkaline Phosphatase 72 U/L (38-126); Anion Gap 10 mmol/L (8-16); Aspartate Amino Transferase 19 U/L (17-59); Bilirubin,Total 0.5 mg/dL (0.2-1.3); Blood Urea Nitrogen 20 mg/dL (9-20); Calcium 8.5 mg/dL (8.4-10.2); Carbon Dioxide 23 mmol/L (22-30); Chloride 105 mmol/L (98-107); Estimated CRCL calculation 68 ml/min; Estimated Glomerular Filt Rate > 60; Glucose 137 mg/dL (65-110); Magnesium 2.2 mg/dL (1.6-2.3); Potassium 3.6 mmol/L (3.4-5.0); Sodium 138 mmol/L (137-145)
[2022-03-01 07:49] LABS: Glucose Point of Care 142 mg/dl (65-105)
[2022-03-01] MEDS: ASPIRIN 81 MG CHEWABLE TABLET PO (09:14)
[2022-03-01] MEDS: EMPAGLIFLOZIN 10 MG TABLET PO (09:14)
[2022-03-01] MEDS: GABAPENTIN 100 MG CAPSULE 200 MG PO ×2 (09:14→17:07)
[2022-03-01] MEDS: CHOLECALCIFEROL 1,000 UNITS TABLET 2000 UNITS PO (09:14)
[2022-03-01] MEDS: ENOXAPARIN 40 MG/0.4 ML SYRINGE SUB-Q (09:14)
[2022-03-01] MEDS: amLODIPine BESYLATE 5 MG TABLET PO (09:14)
[2022-03-01] MEDS: SILVERGEL (ELTA) 45 ML 1 APPLIC TOPICAL (09:15)
[2022-03-01 11:39] LABS: Glucose Point of Care 268 mg/dl (65-105)
[2022-03-01] MEDS: INSULIN ASPART (*BKC) 100 UNITS/ML SUB-Q (11:53)
--- NOTE | 2022-03-01 12:06 | PM.IMPN ---
Progress Note: A&P Assessment and Plan (1) Cellulitis: Code(s): L03.90 - Cellulitis, unspecified Status: Acute Assessment and Plan: -diabetic foot ulcer protocol started with cefepime, Flagyl and vancomycin. - Wound and blood cultures pending. -wound care consult performed, continue wound gel and dressing as ordered. - Consult surgery for possible debridement. - 03/01: Surgery clears for discharge with oral abx when ok with medicine for follow up with wound on 03/07 for debridement. (2) Diabetic ulcer of left foot: Code(s): E11.621 - Type 2 diabetes mellitus with foot ulcer; L97.529 - Non-pressure chronic ulcer of other part of left foot with unspecified severity Status: Acute Assessment and Plan: -as mentioned above the patient was started on cefepime, Flagyl, vancomycin as per diabetic foot ulcer protocol. -wound and blood cultures are pending. -Follow wound care orders. (3) IDDM (insulin dependent diabetes mellitus): Status: Acute Assessment and Plan: - Pt. is Type 2 DM with half-way use of Insulin. -continue with his long-acting insulin - Increase to high dose SSI for tighter glucose control. -his A1c was 7.4 last month. -Jardiance continue -Hypoglycemic protocol. (4) Diabetic peripheral neuropathy associated with type 2 diabetes mellitus: Code(s): E11.42 - Type 2 diabetes mellitus with diabetic polyneuropathy Status: Acute Assessment and Plan: -Continue current DM regimen. -Continue Gabapentin. (5) Hyperlipidemia, unspecified: Qualifiers: Hyperlipidemia type: unspecified Qualified Code(s): E78.5 - Hyperlipidemia, unspecified Code(s): E78.5 - Hyperlipidemia, unspecified Status: Acute Assessment and Plan: -Continue Statin therapy. (6) Essential (primary) hypertension: Code(s): I10 - Essential (primary) hypertension Status: Acute Assessment and Plan: - Hold Lisinopril as pt's BP has been running low. - Hold ACEI as pt's creatinine is 1.4. - Continue other home BP meds and monitor BP with VS, altering regimen as needed as the clinical scenario unfolds. - Hold Metformin. (7) CKD (chronic kidney disease) stage 3, GFR 30-59 ml/min: Qualifiers: Chronic kidney disease stage 3 subtype: unspecified whether 3a or 3b Qualified Code(s): N18.30 - Chronic kidney disease, stage 3 unspecified Code(s): N18.30 - Chronic kidney disease, stage 3 unspecified Status: Acute Assessment and Plan: - Metformin, Sitaglipin and Lisinopril are all held. - Monitor labs Time Spent With Patient Time with patient: 15 - 25 minutes Subjective Date/time seen: 03/01/22 1140 This pt. was examined at the bedside in interval assessment. He has no new complaints today except questions regarding his insulin. He had an MRI that demonstrated no signs of infection in the bone, but there was infection and necrosis in the soft tissue. He is receiving Vanc, Flagyl and Cefepime. Preliminary wound cultures growing Gram positive bacilli, and gram positive cocci in chains. ID is pending. Blood culture is pending and preliminarily negative. VSS, and he does not appear to be septic. Surgery was consulted and felt that he could go home with oral abx. However, pt. is agreeable to staying until tomorrow to see if we can get an identification. He has no CP, dyspnea, N/V/D, urinary complaints. Review of Systems Review of Systems: All systems reviewed & are unremarkable except as noted in HPI and below Exam Const: General: comfortable and no acute distress HENMT: Ears: TM's normal bilaterally General nose exam: Normal nares present Mouth: Yes moist mucous membranes Eyes: General: appearance normal, both eyes and all related structures Sclera: sclerae normal Pupils: Equal, round and reactive pupils present EOM: EOMs intact bilaterally Neck: Neck: supple and No no JVD Thyroid: thyroid normal Carotids: no br
[2022-03-01 13:40] VITALS: BP 133/74; PULSE 72; RESP 14; TEMP 36.4; O2SAT 99
--- NOTE | 2022-03-01 14:33 | PM.PNGS ---
Progress Note: A&P Assessment and Plan (1) Diabetic ulcer of left foot: Code(s): E11.621 - Type 2 diabetes mellitus with foot ulcer; L97.529 - Non-pressure chronic ulcer of other part of left foot with unspecified severity Status: Acute Assessment and Plan: MRI reviewed, exam improved, cont to allow wound to declare itself prior to surgical intervention, ok to dc home c abx and f/u in wound clinic Subjective Subjective Date/Time Seen: 03/01/22 14:33 feels ok, no acute issues, no further foot pain Review of Systems Review of Systems: All systems reviewed & are unremarkable except as noted in HPI and below Exam Const: General: cooperative, comfortable and no acute distress Resp: Auscultation: clear to auscultation bilaterally Cardio: Rate: regular rate Rhythm: regular rhythm GI: Inspection: normal to inspection GI Palp: No abdominal tenderness Extrem: Other: L foot - decreased swelling, cellulitis Objective Data Vital Signs Vital Signs: Vital Signs - 24 hr 02/28/22 20:33 02/28/22 20:00 02/28/22 22:36 Temperature 36.1 C L 36.1 C L Pulse Rate 82 82 Respiratory Rate 18 18 Blood Pressure 154/72 H 154/72 H Pulse Oximetry 97 97 Oxygen Delivery Room Air 03/01/22 00:36 03/01/22 06:42 03/01/22 08:00 Temperature 36.4 C L 36.5 C Pulse Rate 81 74 Respiratory Rate 16 18 Blood Pressure 121/64 125/65 Pulse Oximetry 94 96 Oxygen Delivery Room Air Intake/Output Intake/Output: Intake & Output 02/26/22 02/27/22 02/28/22 03/01/22 23:59 23:59 23:59 23:59 Intake Total 1650 3490 1830 Balance 1650 3490 1830 Meds/Results Medications: Active Medications Generic Name Dose Route Start Last Admin Trade Name Freq PRN Reason Stop Dose Admin Amlodipine Besylate 5 mg 02/28/22 09:00 03/01/22 09:14 Amlodipine Besylate 5 Mg Tablet PO 5 mg DAILY LUDIN Administration Aspirin 81 mg 02/28/22 08:00 03/01/22 09:14 Aspirin 81 Mg Chewable Tablet PO 81 mg DAILY@0800 LUDIN Administration Atorvastatin Calcium 10 mg 02/27/22 23:05 02/28/22 20:06 Atorvastatin 10 Mg Tablet PO 10 mg QHS LUDIN Administration Dextrose 12.5 gm 02/27/22 22:56 Dextrose 50% 25 Gm/50 Ml Syringe IV PUSH PRN PRN Hypoglycemia Protocol Empagliflozin 10 mg 02/28/22 09:00 03/01/22 09:14 Empagliflozin 10 Mg Tablet PO 10 mg DAILY LUDIN Administration Enoxaparin Sodium 40 mg 02/28/22 09:00 03/01/22 09:14 Enoxaparin 40 Mg/0.4 Ml Syringe SUB-Q 40 mg DAILY LUDIN Administration Gabapentin 200 mg 02/28/22 09:00 03/01/22 09:14 Gabapentin 100 Mg Capsule PO 200 mg BID LUDIN Administration Glucagon 1 mg 02/27/22 22:56 Glucagon For Inj 1 Mg Vial IM PRN PRN Hypoglycemia Protocol Glucose 15 gm 02/27/22 22:56 Glucose Oral Gel 15 Gm Of Glucse In 37.5 Gm Tube PO PRN PRN Hypoglycemia Protocol Cefepime HCl 2 gm in 50 mls @ 100 mls/hr 02/27/22 23:00 03/01/22 12:30 Maxipime 2 Gm/D5w 50 Ml IVPB Infused Q12H LUDIN Infusion Vancomycin HCl 1,500 mg in 500 mls @ 333.333 mls/hr 02/28/22 15:00 03/01/22 10:30 Vancomycin 1,500 Mg/D5w 500 Ml IVPB Infused Q18H LUDIN Infusion Dextrose 1,000 mls @ 100 mls/hr 02/27/22 22:56 Dextrose 5% 1,000 Ml IVPB PRN PRN Hypoglycemia Protocol Metronidazole 500 mg in 100 mls @ 100 mls/hr 03/01/22 12:00 03/01/22 14:15 Flagyl 500 Mg/Iso Soln 100 Ml IVPB Infused Q8H LUDIN Infusion Insulin Aspart 4 - 8 units 03/01/22 12:00 03/01/22 11:53 Insulin Aspart (*Bkc) 100 Units/Ml SUB-Q 5 units TIDWM LUDIN Administration Protocol Insulin Glargine 23 units 02/28/22 09:00 03/01/22 10:00 Insulin Glargine (*Bkc) 100 Units/Ml SUB-Q Not Given DAILY [facility] Silver Nitrate 1 applic 02/28/22 09:00 03/01/22 09:15 Silvergel (Elta) 45 Ml TOPICAL 1 applic DAILY LUDIN Administration Vitamin D 2,000 units 02/28/22 09:00 03/01/22 09:14
[2022-03-01 16:25] LABS: Glucose Point of Care 133 mg/dl (65-105)
[2022-03-01 20:00] VITALS: PULSE 72; RESP 14; O2SAT 99
[2022-03-01] MEDS: ATORVASTATIN 10 MG TABLET PO (20:28)
[2022-03-01 21:08] LABS: Glucose Point of Care 180 mg/dl (65-105)
[2022-03-01 22:00] VITALS: BP 150/81; PULSE 66; RESP 18; TEMP 36.2; O2SAT 97
[2022-03-02 02:30] LABS: Basophils Absolute Auto 0.1 K/mm3 (0.0-0.1); Basophils Percent Auto 0.8 % (0.2-1.2); Eosinophils Absolute Auto 0.2 K/mm3 (0-0.3); Eosinophils Percent Auto 3.7 % (0-4.4); Hematocrit 34.1 % (42.0-52.0); Hemoglobin 10.9 g/dL (14.0-18.0); Immature Granulocyte Absolute 0.06 K/mm3 (0.00-0.031); Lymphocytes Absolute Auto 1.34 K/mm3 (0.9-3.2); Lymphocytes Percent Auto 21.3 % (18.3-44.2); Mean Corpuscular Hemoglobin 29.1 pg (26-34); Mean Corpuscular Volume 91.2 fl (80-100); Mean Platelet Volume 9.4 fl (7.4-10.4); Monocytes Absolute Auto 0.5 K/mm3 (0.1-0.6); Monocytes Percent Auto 7.5 % (2.6-8.5); Neutrophils Absolute Auto 4.1 K/mm3 (1.3-6.7); Neutrophils Percent Auto 65.7 % (45.5-73.1); Platelet Count Result 228 k/mm3 (150-375); Red Blood Count 3.74 M/mm3 (4.6-6.20); Red Cell Distribution Width 14.4 % (11.5-14.5); White Blood Count 6.3 K/mm3 (4.5-10.0)
[2022-03-02 03:04] LABS: Alanine Aminotransferase 18 U/L (6-50); Albumin Level 3.1 g/dL (3.5-5.1); Alkaline Phosphatase 67 U/L (38-126); Anion Gap 8 mmol/L (8-16); Aspartate Amino Transferase 21 U/L (17-59); Bilirubin,Total 0.3 mg/dL (0.2-1.3); Blood Urea Nitrogen 18 mg/dL (9-20); Calcium 8.5 mg/dL (8.4-10.2); Carbon Dioxide 25 mmol/L (22-30); Chloride 105 mmol/L (98-107); Estimated CRCL calculation 63 ml/min; Estimated Glomerular Filt Rate > 60; Glucose 131 mg/dL (65-110); Magnesium 2.1 mg/dL (1.6-2.3); Potassium 3.5 mmol/L (3.4-5.0); Sodium 138 mmol/L (137-145)
[2022-03-02] MEDS: metroNIDAZOLE 500 MG/ISO 100ML 500 MG/100 ML BAG 100 MG IVPB ×2 (03:23→11:11)
[2022-03-02 03:35] LABS: Vancomycin Trough 8.7 ug/mL (10.0-20.0)
[2022-03-02 06:00] VITALS: BP 136/75; PULSE 60; RESP 18; TEMP 36.4; O2SAT 96
--- NOTE | 2022-03-02 06:45 | PM.DS ---
DS: Admitting Diagnosis Discharge Date 03/02/2022 Admitting Diagnosis Cellulitis, Diabetic foot ulcer, Diabetes Mellitus, HLD, CKD, HTN DS: Discharge Diagnosis Discharge Diagnosis (1) Cellulitis: Code(s): L03.90 - Cellulitis, unspecified Status: Acute Assessment and Plan: -diabetic foot ulcer protocol started with cefepime, Flagyl and vancomycin. - Wound and blood cultures pending. -wound care consult performed, continue wound gel and dressing as ordered. - Consult surgery for possible debridement. - 03/01: Surgery clears for discharge with oral abx when ok with medicine for follow up with wound on 03/07 for debridement. - 03/02: Culture grew out Group A Strep and Staph aureus. Pt. will be discharged with Augmentin. (2) Diabetic ulcer of left foot: Code(s): E11.621 - Type 2 diabetes mellitus with foot ulcer; L97.529 - Non-pressure chronic ulcer of other part of left foot with unspecified severity Status: Acute Assessment and Plan: -as mentioned above the patient was started on cefepime, Flagyl, vancomycin as per diabetic foot ulcer protocol. -wound and blood cultures are pending. -Follow wound care orders. - 03/02: See above plan and follow wound care orders. (3) IDDM (insulin dependent diabetes mellitus): Status: Acute Assessment and Plan: - Pt. is Type 2 DM with termite inspector use of Insulin. -continue with his long-acting insulin - Increase to high dose SSI for tighter glucose control. -his A1c was 7.4 last month. -Jardiance continue -Hypoglycemic protocol. (4) Diabetic peripheral neuropathy associated with type 2 diabetes mellitus: Code(s): E11.42 - Type 2 diabetes mellitus with diabetic polyneuropathy Status: Acute Assessment and Plan: -Continue current DM regimen. -Continue Gabapentin. (5) Hyperlipidemia, unspecified: Qualifiers: Hyperlipidemia type: unspecified Qualified Code(s): E78.5 - Hyperlipidemia, unspecified Code(s): E78.5 - Hyperlipidemia, unspecified Status: Acute Assessment and Plan: -Continue Statin therapy. (6) Essential (primary) hypertension: Code(s): I10 - Essential (primary) hypertension Status: Acute Assessment and Plan: - Hold Lisinopril as pt's BP has been running low. - Hold ACEI as pt's creatinine is 1.4. - Continue other home BP meds and monitor BP with VS, altering regimen as needed as the clinical scenario unfolds. - Hold Metformin. (7) CKD (chronic kidney disease) stage 3, GFR 30-59 ml/min: Qualifiers: Chronic kidney disease stage 3 subtype: unspecified whether 3a or 3b Qualified Code(s): N18.30 - Chronic kidney disease, stage 3 unspecified Code(s): N18.30 - Chronic kidney disease, stage 3 unspecified Status: Acute Assessment and Plan: - Metformin, Sitaglipin and Lisinopril are all held. - Monitor labs DS: Summary Hospital Course Reason for hospitalization: Fever Hospital Course: This 66 year old male patient with significant PMH of chronic diabetic wound to the LLE, foot, DM with termite inspector insulin use, CKD, HTN, HLD, Recurrent Cellulitis, B12 deficiency, Vitamin D deficiency, and PN presented to the ER on 02/27/22, with complaints of fever, and increased pain in the left foot. There was concern for possible Osteomyelitis. Plain films performed in the ER did not show any bony involvement. There was noted severe soft swelling of the left great toe with erythema, and some areas of tissue necrosis and on the plantar surface of the first metatarsal there was a persistent deep tissue wound that has been present for a year. He had elevated WBC on admission and was started on Cefepime, Vancomycin and Flagyl. Wound was consulted for care and made recommendations for dressing treatment. Surgery consulted and MRI was performed. There was no Osteomyelitis noted, only soft tissue edema and infection with necrosis. Surgery recommendations were to discharge on
[2022-03-02] MEDS: amLODIPine BESYLATE 5 MG TABLET PO (07:59)
[2022-03-02] MEDS: EMPAGLIFLOZIN 10 MG TABLET PO (07:59)
[2022-03-02] MEDS: CHOLECALCIFEROL 1,000 UNITS TABLET 2000 UNITS PO (07:59)
[2022-03-02] MEDS: ENOXAPARIN 40 MG/0.4 ML SYRINGE SUB-Q (07:59)
[2022-03-02] MEDS: ASPIRIN 81 MG CHEWABLE TABLET PO (07:59)
[2022-03-02] MEDS: GABAPENTIN 100 MG CAPSULE 200 MG PO (07:59)
[2022-03-02] MEDS: SILVERGEL (ELTA) 45 ML 1 APPLIC TOPICAL (08:00)
[2022-03-02] MEDS: INSULIN GLARGINE (*BKC) 100 UNITS/ML 23 UNITS SUB-Q (08:09)
[2022-03-02 08:15] LABS: Glucose Point of Care 183 mg/dl (65-105)
[2022-03-02 11:52] LABS: Glucose Point of Care 167 mg/dl (65-105)
== END 2022-03-02 13:20 | disposition home or self-care (01) ==
LOC: ANHED 18:59 → ANH3MEDSUR 20:16
PROVIDERS: Nurse Practitioner; Admitting Provider Internal Medicine; Emergency Provider Nurse Practitioner Family; PCP Family Medicine; Visit Provider Nurse Practitioner Adult Health
DX: L03.116 Cellulitis of left lower limb (principal); E11.621 Type 2 diabetes mellitus with foot ulcer; L97.529 Non-pressure chronic ulcer of other part of left foot with unspecified severity; I12.9 Hypertensive chronic kidney disease with stage 1 through stage 4 chronic kidney disease, or unspecified chronic kidney disease; E11.22 Type 2 diabetes mellitus with diabetic chronic kidney disease; N18.30 Chronic kidney disease, stage 3 unspecified; E78.5 Hyperlipidemia, unspecified; E55.9 Vitamin D deficiency, unspecified; E53.8 Deficiency of other specified B group vitamins; E11.42 Type 2 diabetes mellitus with diabetic polyneuropathy; Z79.84 Long term (current) use of oral hypoglycemic drugs; Z79.4 Long term (current) use of insulin; Z79.82 Long term (current) use of aspirin; Z20.822 Contact with and (suspected) exposure to COVID-19
CPT/HCPCS: 36415; 71045; 73630; 73720; 80053; 80202; 82565; 82728; 82948; 83605; 83735; 84443; 85025; 86140; 87040; 87070; 87147; 87181; 87186; 87205; 96361; 96365; 96366; 96367; 96372; 96376; 99285; A9270; A9577; C9803; G0378; J0692; J0696; J1650; J1815; J3370; J7030; U0003; U0005

== ENCOUNTER 2022-03-26 12:15 | Inpatient (IN) | payer OTHER, SELFPAY ==
--- NOTE | ~2022-03-26 | XR_ITS ---
EXAMINATION: XR foot LT min 3V DATE: 03/26/2022 15:06 INDICATION: Left great toe edema. TECHNIQUE: 4 views of left foot were obtained. COMPARISON: Left foot radiographs 02/27/2022, MRI 02/28/2022 FINDINGS: There is lateral subluxation of second metatarsal with respect to intermediate cuneiform. N o fracture. There is severe osteoarthritis of first and second tarsometatarsal joints and mild to mod erate osteoarthritis of many of the midfoot joints. There is moderate osteoarthritis of first metatar sophalangeal joint and mild osteoarthritis of many of the interphalangeal joints. There are enthesoph ytes at the posterior and plantar aspects of calcaneal tuberosity. There is soft tissue swelling of t he great toe. IMPRESSION: 1. 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 Reviewed, dictated and finalized at location A. IMPRESSION: 1. 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
[2022-03-26 12:30] VITALS: BP 134/84; PULSE 95; RESP 16; TEMP 36.8; O2SAT 97
[2022-03-26 14:16] LABS: Basophils Absolute Auto 0.1 K/mm3 (0.0-0.1); Basophils Percent Auto 1.1 % (0.2-1.2); Eosinophils Absolute Auto 0.3 K/mm3 (0-0.3); Hematocrit 42.4 % (42.0-52.0); Hemoglobin 13.5 g/dL (14.0-18.0); Immature Granulocyte Absolute 0.03 K/mm3 (0.00-0.031); Immature Granulocyte Percent A 0.4 % (0-0.5); Lymphocytes Absolute Auto 1.87 K/mm3 (0.9-3.2); Lymphocytes Percent Auto 22.7 % (18.3-44.2); Mean Corpuscular HGB Conc 31.8 g/dl (32-36); Mean Corpuscular Hemoglobin 28.9 pg (26-34); Mean Corpuscular Volume 90.8 fl (80-100); Mean Platelet Volume 10.4 fl (7.4-10.4); Monocytes Absolute Auto 0.7 K/mm3 (0.1-0.6); Monocytes Percent Auto 8.4 % (2.6-8.5); Neutrophils Absolute Auto 5.2 K/mm3 (1.3-6.7); Neutrophils Percent Auto 63.4 % (45.5-73.1); Platelet Count Result 215 k/mm3 (150-375); Red Blood Count 4.67 M/mm3 (4.6-6.20); Red Cell Distribution Width 14.9 % (11.5-14.5); White Blood Count 8.2 K/mm3 (4.5-10.0)
[2022-03-26 14:26] LABS: Lactic Acid Reflex 3.2 mmol/L (0.7-2.0)
[2022-03-26 14:31] LABS: Alanine Aminotransferase 21 U/L (6-50); Albumin Level 4.2 g/dL (3.5-5.1); Alkaline Phosphatase 80 U/L (38-126); Anion Gap 14 mmol/L (8-16); Aspartate Amino Transferase 26 U/L (17-59); Bilirubin,Total 0.4 mg/dL (0.2-1.3); Blood Urea Nitrogen 20 mg/dL (9-20); CRP 1.6 mg/dL (<1.0); Calcium 9.3 mg/dL (8.4-10.2); Carbon Dioxide 26 mmol/L (22-30); Chloride 101 mmol/L (98-107); Estimated CRCL calculation 63 ml/min; Estimated Glomerular Filt Rate > 60; Glucose 120 mg/dL (65-110); Potassium 3.9 mmol/L (3.4-5.0); Sodium 141 mmol/L (137-145)
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
[2022-03-26] MEDS: SODIUM CHLORIDE 0.9% IV 1,000 ML 999 ML IV CONT (15:06)
[2022-03-26 15:50] LABS: Erythrocyte Sedimentation Rate 35 mm/hr (0-20)
[2022-03-26] MEDS: metroNIDAZOLE 500 MG/ISO 100ML 500 MG/100 ML BAG 100 MG IVPB ×2 (16:35→23:24)
[2022-03-26 17:12] LABS: Reflex Lactic Acid Yes or No Add Lactic
[2022-03-26 17:17] LABS: SARS-CoV-2 RNA PCR Negative
[2022-03-26 18:14] LABS: Lactic Acid 2.5 mmol/L (0.7-2.0)
--- NOTE | 2022-03-26 18:27 | ADMGEN ---
This patient, Manjeet Vinson, was admitted to 3 Med Surg Room 312-01 at 1815. Patient/family oriented to hospital policies and general routines including ID bracelet, bed and alarms, visiting hours, pain management, procedures, bathroom and other care routines, personal items, smoking policy, room service/diet, and visiting hours. Information on how to activate the Rapid Response Team has been discussed. Patient/Family are encouraged to report perceived risks to care and to ask questions if they do not understand what they are told or what they should do.
[2022-03-26 18:28] VITALS: BP 124/74; PULSE 80; RESP 16; TEMP 35.9; O2SAT 100
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
[2022-03-26] MEDS: SODIUM CHLORIDE 0.9% IV 1,000 ML 100 ML IV CONT (18:52)
--- NOTE | 2022-03-26 19:40 | PM.CNGS ---
History of Present Illness Consult details Consult date: 03/26/22 Reason for consult: wound care (Diabetic 2 wounds left foot) Requesting physician: Scarlet Soriano DO Narrative: Mr. 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 He also had a recent admission here at [place] 1 month ago for a new diabetic foot ulcer right at the crease between his left great toe and the second toe more to the plantar side. At tht time he had cellulitis also and was treated for a while with IV antibiotics. He presented to the emergency department today from his court operations clerk's office under the direction of his court operations clerk for initiation of IV antibiotics after the left great toe wound had developed increased swelling redness, and green purulent drainage.? The patient denies pain.? He endorses decreased sensation in his bilateral feet.? He has been able to bear weight and get around without difficulty.? He completed a 10 day course of Augmentin earlier this month.? His states that ever since he has finished the Augmentin, the wound developed the purulent drainage.? Patient's has been changing the bandage daily and applying silver gel.? He had an appointment tomorrow to establish with [facility]. ( after questioning his court operations clerk's mode is it seems it made it may be that he was recommending this to give the patient the option of hyperbaric chamber treatment that they may have at the [facility]). ? 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 They did not comment about any signs of osteomyelitis. He is being admitted to the hospitalist service for? observation and IV antibiotic.? the new wound between his 1st and 2nd toe on left foot was cultured in the ER. Review of Systems Review of Systems: All systems reviewed & are unremarkable except as noted in HPI and below (HPI) Constitutional: Constitutional: Reports as per HPI, Denies chills and Denies fever(s) Eyes: Eyes: Reports no additional eye complaints ENT: Reports Normal hearing present and Denies dizziness Cardiovascular: Cardiovascular: Reports no additional cardiovascular complaints, Denies chest pain and Denies irregular heart rhythm Comments: history of hypertension and hyperlipidemia on medications Respiratory: Respiratory: Reports no additional respiratory complaints Gastrointestinal: Gastrointestinal: Reports no additional gastrointestinal complaints, Denies abdominal pain and Denies bloating Genitourinary: Genitourinary: Denies hematuria Comments: history of chronic kidney disease related to diabetes Musculoskeletal: Musculoskeletal: Denies back pain Comments: history of Charcot foot Integumentary/Breasts: Skin/Breast: Reports system reviewed and no additional complaints, except as docu Neurologic: Reports Normal hearing present, Denies Abnormal speech present, Denies confusion and Denies dizziness Psychiatric: Psychiatric: Reports no additional psychiatric complaints and Denies confusion Endocrine: Endocrine: Reports no additional endocrine complaints Comments: History of diabetes on insulin Hematologic/Lymphatic: Hematologic/Lymphatic: Denies easy bleeding and Denies easy bruising Allergic/Immunologic: Allergic/Immunologic: Reports no additional allergic/immunologic complaints [facility] Past Medical History Medical History (Updated 03/26/22 @ 18:53 by Roxanne Pandya PA-C) B12 deficiency Charcot foot due to diabetes mellitus CKD (chronic kidney disease) stage 3, GFR 30-
[2022-03-26] MEDS: INSULIN GLARGINE (*BKC) 100 UNITS/ML 20 UNITS SUB-Q (20:37)
[2022-03-26 22:00] VITALS: BP 122/60; PULSE 71; RESP 16; TEMP 36.6; O2SAT 100
[2022-03-26 22:03] LABS: Estimated CRCL calculation 68 ml/min; Estimated Glomerular Filt Rate > 60
[2022-03-26 23:45] LABS: Glucose Point of Care 201 mg/dl (65-105)
[2022-03-27] MEDS: SODIUM CHLORIDE 0.9% IV 1,000 ML 100 ML IV CONT (05:05)
[2022-03-27 06:00] VITALS: BP 132/71; PULSE 80; RESP 16; TEMP 36.3; O2SAT 100
[2022-03-27 06:39] LABS: Hematocrit 38.9 % (42.0-52.0); Hemoglobin 12.2 g/dL (14.0-18.0); Mean Corpuscular HGB Conc 31.4 g/dl (32-36); Mean Corpuscular Hemoglobin 28.4 pg (26-34); Mean Corpuscular Volume 90.5 fl (80-100); Mean Platelet Volume 10.5 fl (7.4-10.4); Platelet Count Result 174 k/mm3 (150-375); Red Cell Distribution Width 14.8 % (11.5-14.5); White Blood Count 6.4 K/mm3 (4.5-10.0)
[2022-03-27 06:58] LABS: Lactic Acid Reflex 1.4 mmol/L (0.7-2.0)
[2022-03-27 07:03] LABS: Anion Gap 10 mmol/L (8-16); Blood Urea Nitrogen 17 mg/dL (9-20); Calcium 8.4 mg/dL (8.4-10.2); Carbon Dioxide 28 mmol/L (22-30); Chloride 102 mmol/L (98-107); Estimated CRCL calculation 63 ml/min; Estimated Glomerular Filt Rate > 60; Glucose 145 mg/dL (65-110); Potassium 3.7 mmol/L (3.4-5.0); Sodium 140 mmol/L (137-145)
[2022-03-27 07:48] LABS: Glucose Point of Care 163 mg/dl (65-105)
[2022-03-27 08:00] VITALS: PULSE 80; RESP 16; O2SAT 100
[2022-03-27] MEDS: metroNIDAZOLE 500 MG/ISO 100ML 500 MG/100 ML BAG 100 MG IVPB ×3 (09:40→23:34)
[2022-03-27] MEDS: ATORVASTATIN 10 MG TABLET PO (09:40)
[2022-03-27] MEDS: amLODIPine BESYLATE 5 MG TABLET PO (09:40)
[2022-03-27] MEDS: GABAPENTIN 100 MG CAPSULE 200 MG PO ×2 (09:40→17:04)
[2022-03-27] MEDS: CHOLECALCIFEROL 1,000 UNITS TABLET 2000 UNITS PO (09:40)
[2022-03-27] MEDS: ENOXAPARIN 40 MG/0.4 ML SYRINGE SUB-Q (09:41)
[2022-03-27] MEDS: hydroCHLOROthiazide 12.5 MG CAPSULE PO (09:41)
[2022-03-27] MEDS: ASPIRIN 81 MG CHEWABLE TABLET PO (09:41)
[2022-03-27] MEDS: EMPAGLIFLOZIN 10 MG TABLET PO (09:41)
[2022-03-27] MEDS: lisinopriL 20 MG TABLET PO (09:42)
[2022-03-27 11:44] LABS: Glucose Point of Care 140 mg/dl (65-105)
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
[2022-03-27 14:00] VITALS: BP 121/64; PULSE 71; RESP 18; TEMP 36.3; O2SAT 95
[2022-03-27] MEDS: SILVERGEL (ELTA) 45 ML 1 APPLIC TOPICAL (14:29)
[2022-03-27 17:03] LABS: Glucose Point of Care 137 mg/dl (65-105)
[2022-03-27] MEDS: INSULIN GLARGINE (*BKC) 100 UNITS/ML 20 UNITS SUB-Q (20:31)
--- NOTE | 2022-03-27 20:45 | PM.PNGS ---
Progress Note: A&P Assessment and Plan (1) Diabetic ulcer of left foot: Code(s): E11.621 - Type 2 diabetes mellitus with foot ulcer; L97.529 - Non-pressure chronic ulcer of other part of left foot with unspecified severity Status: Acute Assessment and Plan: Continue IV antibiotics We will try to change dressing with nurses tomorrow so that I can look at the wound. Allow patient to walk but keep foot elevated while in bed. Await cultures. Gram stain shows Gram-positive cocci in change which is probably strep or staph. (2) Diabetes mellitus: Qualifiers: Diabetes mellitus complication status: with skin complications Diabetes mellitus long lines operator insulin use: with long lines operator use Diabetes mellitus type: type 2 Code(s): E11.9 - Type 2 diabetes mellitus without complications Status: Acute (3) Diabetic peripheral neuropathy associated with type 2 diabetes mellitus: Code(s): E11.42 - Type 2 diabetes mellitus with diabetic polyneuropathy Status: Acute Subjective Subjective Date/Time Seen: 03/27/22 16:45 Patient reports: no new complaints and feels better Interval history: Has been well up walking putting most of pressure on his left heel. Wound care nurses some this morning and redressed the wound with silver gel. He states they reported that looked healthy we are awaiting cultures. Review of Systems Review of Systems: All systems reviewed & are unremarkable except as noted in HPI and below Constitutional: Constitutional: Reports as per HPI, Denies chills and Denies fever(s) Cardiovascular: Cardiovascular: Denies chest pain and Denies dyspnea Respiratory: Respiratory: Reports no additional respiratory complaints and Denies dyspnea Gastrointestinal: Gastrointestinal: Reports as per HPI and Denies bloating Musculoskeletal: Musculoskeletal: Reports no additional musculoskeletal complaints Neurologic: Denies memory loss Psychiatric: Psychiatric: Denies anxiety and Denies memory loss Exam Const: General: cooperative, comfortable, alert and awake Orientation/consciousness: patient oriented x3 HENMT: Head: normal to inspection Mouth: Yes moist mucous membranes Eyes: Sclera: sclerae normal Pupils: Equal, round and reactive pupils present Neck: Neck: normal visual inspection and no JVD Chest: Chest palpation & inspection: normal inspection of the chest Resp: Effort & Inspection: normal respiratory effort Auscultation: clear to auscultation bilaterally Cardio: Jugular venous distension: no JVD Rate: regular rate Skin: Other: Left foot is dressed there is no cellulitis above the current bandage. Nursing nor wound care report any extension of the cellulitis above the wound beyond where I had marked last evening. Neuro: General: patient oriented x3 Cranial nerves: Yes Equal, round and reactive pupils present Objective Data Vital Signs Vital Signs: Vital Signs - 24 hr 03/26/22 22:00 03/27/22 06:00 03/27/22 08:00 Temperature 36.6 C 36.3 C L Pulse Rate 71 80 80 Respiratory Rate 16 16 16 Blood Pressure 122/60 132/71 Pulse Oximetry 100 100 100 Oxygen Delivery Room Air 03/27/22 14:00 Temperature 36.3 C L Pulse Rate 71 Respiratory Rate 18 Blood Pressure 121/64 Pulse Oximetry 95 Oxygen Delivery Intake/Output Intake/Output: Intake & Output 03/24/22 03/25/22 03/26/22 03/27/22 23:59 23:59 23:59 23:59 Intake Total 1650 2835 Output Total 2500 Balance 1650 335 Meds/Results Medications: Active Medications Generic Name Dose Route Start Last Admin Trade Name Kameronq PRN Reason Stop Dose Admin Amlodipine Besylate 5 mg 03/27/22 09:00 03/27/22 09:40 Amlodipine Besylate 5 Mg Tablet PO 5 mg DAILY LUDIN Administration Aspirin 81 mg 03/27/22 09:00 03/27/22 09:41 Aspirin 81 Mg Chewable Tablet PO 81 mg DAILY LUDIN Administration Atorvastatin Calcium 10 mg 03/27/22 09:00 03/27/22 09:40 Atorvastatin 10 Mg
[2022-03-27 21:54] VITALS: BP 127/68; PULSE 71; RESP 18; TEMP 36.4; O2SAT 93
[2022-03-27 23:39] LABS: Glucose Point of Care 164 mg/dl (65-105)
[2022-03-28 05:47] VITALS: BP 111/63; PULSE 66; RESP 18; TEMP 36.2; O2SAT 94
[2022-03-28 06:31] LABS: Hematocrit 38.6 % (42.0-52.0); Hemoglobin 12.2 g/dL (14.0-18.0); Mean Corpuscular HGB Conc 31.6 g/dl (32-36); Mean Corpuscular Volume 91.7 fl (80-100); Platelet Count Result 163 k/mm3 (150-375); Red Blood Count 4.21 M/mm3 (4.6-6.20); Red Cell Distribution Width 14.6 % (11.5-14.5); White Blood Count 5.1 K/mm3 (4.5-10.0)
[2022-03-28 06:52] LABS: Anion Gap 7 mmol/L (8-16); Blood Urea Nitrogen 18 mg/dL (9-20); Calcium 8.5 mg/dL (8.4-10.2); Carbon Dioxide 26 mmol/L (22-30); Chloride 103 mmol/L (98-107); Estimated CRCL calculation 58 ml/min; Estimated Glomerular Filt Rate 55; Glucose 185 mg/dL (65-110); Potassium 3.8 mmol/L (3.4-5.0); Sodium 136 mmol/L (137-145)
[2022-03-28 07:44] LABS: Glucose Point of Care 170 mg/dl (65-105)
[2022-03-28 08:00] VITALS: PULSE 66; RESP 18; O2SAT 94
[2022-03-28] MEDS: lisinopriL 20 MG TABLET PO (08:52)
[2022-03-28] MEDS: hydroCHLOROthiazide 12.5 MG CAPSULE PO (08:52)
[2022-03-28] MEDS: GABAPENTIN 100 MG CAPSULE 200 MG PO ×2 (08:52→17:32)
[2022-03-28] MEDS: CHOLECALCIFEROL 1,000 UNITS TABLET 2000 UNITS PO (08:52)
[2022-03-28] MEDS: ATORVASTATIN 10 MG TABLET PO (08:53)
[2022-03-28] MEDS: ASPIRIN 81 MG CHEWABLE TABLET PO (08:53)
[2022-03-28] MEDS: amLODIPine BESYLATE 5 MG TABLET PO (08:53)
[2022-03-28] MEDS: SILVERGEL (ELTA) 45 ML 1 APPLIC TOPICAL (08:53)
[2022-03-28] MEDS: EMPAGLIFLOZIN 10 MG TABLET PO (08:54)
[2022-03-28] MEDS: metroNIDAZOLE 500 MG/ISO 100ML 500 MG/100 ML BAG 100 MG IVPB ×2 (08:54→15:46)
[2022-03-28] MEDS: ENOXAPARIN 40 MG/0.4 ML SYRINGE SUB-Q (08:54)
[2022-03-28 11:40] LABS: Glucose Point of Care 183 mg/dl (65-105)
[2022-03-28 13:52] VITALS: BP 128/73; PULSE 69; RESP 18; TEMP 36.2; O2SAT 97
--- NOTE | 2022-03-28 13:56 | PM.IMPN ---
Progress Note: A&P Assessment and Plan (1) Diabetic ulcer of left foot: Code(s): E11.621 - Type 2 diabetes mellitus with foot ulcer; L97.529 - Non-pressure chronic ulcer of other part of left foot with unspecified severity Status: Acute Assessment and Plan: Persistent wound, evaluated at recent hospitalization 1 month ago during which he received IV antibiotics and completed an outpatient course of Augmentin. Patient is followed by Podiatry and was directed to the ED given increased swelling, redness, drainage. foot x-ray showed polyarticular osteoarthritis continue cefepime, vancomycin, and Flagyl day #3 preliminary wound culture with growth of 3 organisms: staph aureus, group A strep, and pseudomonas. Will await susceptibility report appreciate general surgery consultation appreciate wound care evaluation preliminary blood cultures negative to date supportive care. Elevate extremity tight glycemic control (2) Lactic acidosis: Code(s): E87.20 - Acidosis, unspecified Status: Acute Assessment and Plan: Resolved. Lactic acid 3.2 on presentation normalized following IV fluids IV fluids discontinued 03/27 as patient is tolerating p.o. intake normal anion gap (3) Diabetes mellitus: Qualifiers: Diabetes mellitus complication status: with skin complications Diabetes mellitus intermodal dispatcher insulin use: with intermodal dispatcher use Diabetes mellitus type: type 2 Code(s): E11.9 - Type 2 diabetes mellitus without complications Status: Acute Assessment and Plan: Last A1c 7.4 in January 2022. Blood sugars well controlled during admission. continue Accu-Cheks, sliding scale insulin, hypoglycemic protocol home regimen consists of 20 units detemir daily and 5-6 units of NovoLog with meals continue Lantus 20 units qHS continue home Jardiance home janumet is nonformulary (4) Essential (primary) hypertension: Code(s): I10 - Essential (primary) hypertension Status: Acute Assessment and Plan: blood pressure is stable. Last BP 128/73 continue home amlodipine, lisinopril, HCTZ monitor BP trends (5) CKD (chronic kidney disease) stage 3, GFR 30-59 ml/min: Qualifiers: Chronic kidney disease stage 3 subtype: unspecified whether 3a or 3b Qualified Code(s): N18.30 - Chronic kidney disease, stage 3 unspecified Code(s): N18.30 - Chronic kidney disease, stage 3 unspecified Status: Acute Assessment and Plan: Renal function is consistent with baseline monitor BMP Subjective Date/time seen: 03/28/22 13:56 Interval history: Date of service: 03/28/2022 Manjeet Vinson is a 66-year-old male with a history of type 2 diabetes mellitus, CKD, B12 deficiency, hypertension, hyperlipidemia, Charcot foot,? 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 and recent admission 1 month ago for diabetic foot ulcer and cellulitis who is seen in follow-up for left foot ulcer. He is feeling well today. He has no foot pain. He is able to ambulate without difficulty. Denies abdominal pain, nausea, vomiting, shortness of breath, cough, chest pain. Appetite is good. Review of Systems Review of Systems: All systems reviewed & are unremarkable except as noted in HPI and below Exam Narrative: General: well-nourished, well-appearing 66-year-old male, sitting up in bed, comfortable, NARD Neuro: awake, alert and oriented x4, speech clear, no focal neuro deficits noted HEENMT: normocephalic, atraumatic, EOMI, sclerae anicteric Respiratory: clear to auscultation bilaterally, nonlabored breathing Cardio: regular rate, regular rhythm with S1-S2 Abdomen: nondistended, normoactive bowel sounds, soft, nontender to palpation Extremities: no edema, erythema, or tenderness to palpation, DP pulses 2+ bilaterally Skin: skin graft of right lower extremity, left foot wound is wr
[2022-03-28 16:24] LABS: Glucose Point of Care 140 mg/dl (65-105)
[2022-03-28 19:54] LABS: Glucose Point of Care 193 mg/dl (65-105)
[2022-03-28] MEDS: INSULIN GLARGINE (*BKC) 100 UNITS/ML 20 UNITS SUB-Q (20:08)
[2022-03-28 21:06] VITALS: BP 107/79; PULSE 72; RESP 18; TEMP 36.7; O2SAT 95
--- NOTE | 2022-03-28 22:24 | PM.PNGS ---
Progress Note: A&P Assessment and Plan (1) Diabetic ulcer of left foot: Code(s): E11.621 - Type 2 diabetes mellitus with foot ulcer; L97.529 - Non-pressure chronic ulcer of other part of left foot with unspecified severity Status: Acute Assessment and Plan: Continue IV antibiotics We will try to change dressing with nurses tomorrow so that I can look at the wound. Allow patient to walk but keep foot elevated while in bed. Await cultures. --- Showing 3 different types bacteria. Sensitivities In still pending. Continue current antibiotics. Gram stain shows Gram-positive cocci in chains which is probably strep or staph. continue antibiotics until sensitivities are back. (2) Diabetes mellitus: Qualifiers: Diabetes mellitus complication status: with skin complications Diabetes mellitus group home insulin use: with adjunct faculty for medical terminology use Diabetes mellitus type: type 2 Code(s): E11.9 - Type 2 diabetes mellitus without complications Status: Acute (3) Diabetic peripheral neuropathy associated with type 2 diabetes mellitus: Code(s): E11.42 - Type 2 diabetes mellitus with diabetic polyneuropathy Status: Acute Subjective Subjective Date/Time Seen: 03/28/22 07:24 Patient reports: feels better Interval history: States he is able to put weight on his foot. Trying keep foot elevated when in bed. Review of Systems Review of Systems: All systems reviewed & are unremarkable except as noted in HPI and below Constitutional: Constitutional: Reports as per HPI, Denies chills and Denies fever(s) Cardiovascular: Cardiovascular: Denies chest pain and Denies dyspnea Respiratory: Respiratory: Reports no additional respiratory complaints and Denies dyspnea Gastrointestinal: Gastrointestinal: Reports as per HPI and Denies bloating Musculoskeletal: Musculoskeletal: Reports no additional musculoskeletal complaints Neurologic: Denies memory loss Psychiatric: Psychiatric: Denies anxiety and Denies memory loss Exam Const: General: cooperative, comfortable, alert and awake Orientation/consciousness: patient oriented x3 Skin: Other: Left foot is dressed -- I removed the dressing so I could sees foot today. Believe the erythema on the big toe has receded some away from marked that I placed when I 1st saw him. The wound between his base right great she has been left great toe and 2nd toe seemed room cleaner --granulating now. Will ask nursing to continue current dressing changes. Neuro: General: patient oriented x3 Cranial nerves: Yes Equal, round and reactive pupils present Objective Data Vital Signs Vital Signs: Vital Signs - 24 hr 03/28/22 05:47 03/28/22 08:00 03/28/22 13:52 Temperature 36.2 C L 36.2 C L Pulse Rate 66 66 69 Respiratory Rate 18 18 18 Blood Pressure 111/63 128/73 Pulse Oximetry 94 94 97 Oxygen Delivery Room Air 03/28/22 21:06 03/28/22 20:00 Temperature 36.7 C Pulse Rate 72 Respiratory Rate 18 Blood Pressure 107/79 Pulse Oximetry 95 Oxygen Delivery Room Air Intake/Output Intake/Output: Intake & Output 03/25/22 03/26/22 03/27/22 03/28/22 23:59 23:59 23:59 23:59 Intake Total 1650 3485 2724 Output Total 9065 4750 Balance 1653 773 -1341 Meds/Results Medications: Active Medications Generic Name Dose Route Start Last Admin Trade Name Freq PRN Reason Stop Dose Admin Amlodipine Besylate 5 mg 03/27/22 09:00 03/28/22 08:53 Amlodipine Besylate 5 Mg Tablet PO 5 mg DAILY LUDIN Administration Aspirin 81 mg 03/27/22 09:00 03/28/22 08:53 Aspirin 81 Mg Chewable Tablet PO 81 mg DAILY LUDIN Administration Atorvastatin Calcium 10 mg 03/27/22 09:00 03/28/22 08:53 Atorvastatin 10 Mg Tablet PO 10 mg DAILY LUDIN Administration Dextrose 12.5 gm 03/26/22 19:03 Dextrose 50% 25 Gm/50 Ml Syringe IV PUSH PRN PRN Hypoglycemia Protocol Empagliflozin 10 mg 03/27/22 09:00 03/28/22 08:54
[2022-03-28 23:52] LABS: Vancomycin Trough 13.9 ug/mL (10.0-20.0)
[2022-03-29] MEDS: metroNIDAZOLE 500 MG/ISO 100ML 500 MG/100 ML BAG 100 MG IVPB ×2 (00:07→08:41)
[2022-03-29 05:58] VITALS: BP 113/75; PULSE 66; RESP 16; TEMP 36.6; O2SAT 95
[2022-03-29 06:28] LABS: Hematocrit 38.9 % (42.0-52.0); Hemoglobin 12.4 g/dL (14.0-18.0); Mean Corpuscular HGB Conc 31.9 g/dl (32-36); Mean Corpuscular Hemoglobin 28.4 pg (26-34); Mean Corpuscular Volume 89.2 fl (80-100); Mean Platelet Volume 10.5 fl (7.4-10.4); Platelet Count Result 193 k/mm3 (150-375); Red Blood Count 4.36 M/mm3 (4.6-6.20); Red Cell Distribution Width 14.5 % (11.5-14.5); White Blood Count 5.9 K/mm3 (4.5-10.0)
[2022-03-29 06:36] LABS: Anion Gap 10 mmol/L (8-16); Blood Urea Nitrogen 17 mg/dL (9-20); Calcium 8.8 mg/dL (8.4-10.2); Carbon Dioxide 27 mmol/L (22-30); Chloride 101 mmol/L (98-107); Estimated CRCL calculation 58 ml/min; Estimated Glomerular Filt Rate 55; Glucose 135 mg/dL (65-110); Potassium 3.9 mmol/L (3.4-5.0); Sodium 138 mmol/L (137-145)
[2022-03-29] MEDS: EMPAGLIFLOZIN 10 MG TABLET PO (08:46)
[2022-03-29] MEDS: ASPIRIN 81 MG CHEWABLE TABLET PO (08:46)
[2022-03-29] MEDS: ATORVASTATIN 10 MG TABLET PO (08:46)
[2022-03-29] MEDS: hydroCHLOROthiazide 12.5 MG CAPSULE PO (08:46)
[2022-03-29] MEDS: lisinopriL 20 MG TABLET PO (08:46)
[2022-03-29] MEDS: amLODIPine BESYLATE 5 MG TABLET PO (08:46)
[2022-03-29] MEDS: ENOXAPARIN 40 MG/0.4 ML SYRINGE SUB-Q (08:46)
[2022-03-29] MEDS: GABAPENTIN 100 MG CAPSULE 200 MG PO ×2 (08:46→16:03)
[2022-03-29] MEDS: CHOLECALCIFEROL 1,000 UNITS TABLET 2000 UNITS PO (08:46)
[2022-03-29] MEDS: SILVERGEL (ELTA) 45 ML 1 APPLIC TOPICAL (08:47)
--- NOTE | 2022-03-29 09:56 | PM.PNGS ---
Progress Note: A&P Assessment and Plan (1) Diabetic ulcer of left foot: Code(s): E11.621 - Type 2 diabetes mellitus with foot ulcer; L97.529 - Non-pressure chronic ulcer of other part of left foot with unspecified severity Status: Acute Assessment and Plan: Continue IV antibiotics but okay with us to switch to oral antibiotics that do not interact with his other meds ( specially diabetic meds that he is on was a concern). Allow patient to walk but keep foot elevated while in bed. Await cultures. --- Showing 3 different types bacteria. Sensitivities are still pending. Continue current antibiotics. Gram stain shows Gram-positive cocci in chains which is probably the strep or staph. continue antibiotics until sensitivities are back. continue dressing changes with silver gel and gauze. Okay for the patient to use soap and water to wash his feet. I will not ask my partner to see this patient over the weekend. He can be discharged at any time once oral antibiotics can be determined and I would suggest a 10 day course of oral antibiotics with follow-up with either his current water quality analyst or if doing well wait for his [facility] visit 04/12/2022. (2) Diabetes mellitus: Qualifiers: Diabetes mellitus complication status: with skin complications Diabetes mellitus petroleum terminal plant operator insulin use: with petroleum terminal plant operator use Diabetes mellitus type: type 2 Code(s): E11.9 - Type 2 diabetes mellitus without complications Status: Acute Assessment and Plan: as per hospitalist (3) Diabetic peripheral neuropathy associated with type 2 diabetes mellitus: Code(s): E11.42 - Type 2 diabetes mellitus with diabetic polyneuropathy Status: Acute Assessment and Plan: as per hospitalist. Subjective Subjective Date/Time Seen: 03/29/22 09:56 Patient doing well. Culture still pending. He is able to walk. He plans to follow-up with [facility] with an appointment on April 12. He also has a water quality analyst as an outpatient. Pain well controlled. Review of Systems Review of Systems: All systems reviewed & are unremarkable except as noted in HPI and below Constitutional: Constitutional: Reports as per HPI, Denies chills and Denies fever(s) Cardiovascular: Cardiovascular: Denies chest pain and Denies dyspnea Respiratory: Respiratory: Reports no additional respiratory complaints and Denies dyspnea Gastrointestinal: Gastrointestinal: Reports as per HPI and Denies bloating Musculoskeletal: Musculoskeletal: Reports no additional musculoskeletal complaints Neurologic: Denies memory loss Psychiatric: Psychiatric: Denies anxiety and Denies memory loss Exam Const: General: cooperative, comfortable, alert and awake Orientation/consciousness: patient oriented x3 Skin: Other: Left foot is dressed -- I removed the dressing so I could see his foot today. I believe the erythema on the big toe has basically cleared since when I 1st saw him. The wound between his base left great toe and 2nd toe seemed machinery cleaner --granulating now, and no obvious purulent exudate at this time. Will ask nursing to continue current dressing changes. Neuro: General: patient oriented x3 Cranial nerves: Yes Equal, round and reactive pupils present Objective Data Vital Signs Vital Signs: Vital Signs - 24 hr 03/28/22 13:52 03/28/22 21:06 03/28/22 20:00 Temperature 36.2 C L 36.7 C Pulse Rate 69 72 Respiratory Rate 18 18 Blood Pressure 128/73 107/79 Pulse Oximetry 97 95 Oxygen Delivery Room Air 03/29/22 05:58 Temperature 36.6 C Pulse Rate 66 Respiratory Rate 16 Blood Pressure 113/75 Pulse Oximetry 95 Oxygen Delivery Intake/Output Intake/Output: Intake & Output 03/26/22 03/27/22 03/28/22 03/29/22 23:59 23:59 23:59 23:59 Intake Total 1650 3485 3374 650 Output Total 0601 6646 900 Balance 1650 985 -9516 -774 Meds/Results Medications: Active Medications Generi
--- NOTE | 2022-03-29 11:14 | ECG_ITS ---
Measurements Intervals Coleman Rate: 72 P: 18 MN: 175 QRS: -18 QRSD: 83 T: 29 QT: 387 QTc: 425 Interpretive Statements SINUS RHYTHM Normal EKG NO PREVIOUS ECG AVAILABLE FOR COMPARISON Electronically Signed On 03-30-2022 8:48:30 CDT by Selene Vann M.D.
[2022-03-29 11:36] LABS: Glucose Point of Care 157 mg/dl (65-105)
[2022-03-29 14:00] VITALS: BP 115/71; PULSE 78; RESP 20; TEMP 36.6; O2SAT 97
--- NOTE | 2022-03-29 15:50 | P.PNIM_ITS ---
Progress Note: A&P Assessment and Plan (1) Diabetic ulcer of left foot: Code(s): E11.621 - Type 2 diabetes mellitus with foot ulcer; L97.529 - Non-pressure chronic ulcer of other part of left foot with unspecified severity Status: Acute Assessment and Plan: Persistent wound, evaluated at recent hospitalization 1 month ago during which he received IV antibiotics and completed an outpatient course of Augmentin. Patient is followed by Podiatry and was directed to the ED given increased swelling, redness, drainage. * foot x-ray showed polyarticular osteoarthritis * continue cefepime and vancomycin day #4. Stop Flagyl * preliminary wound culture with growth of 3 organisms: staph aureus, group A strep, and pseudomonas. * await susceptibility report and tailor antibiotics appropriately. Hopeful that all organisms will have susceptibility to oral agent and patient can be discharged home on p.o. antibiotics * appreciate general surgery consultation * appreciate wound care evaluation * preliminary blood cultures negative to date * supportive care. Elevate extremity * tight glycemic control (2) Lactic acidosis: Code(s): E87.20 - Acidosis, unspecified Status: Resolved Assessment and Plan: Resolved. Lactic acid 3.2 on presentation * normalized following IV fluids * IV fluids discontinued 03/27 as patient is tolerating p.o. intake * normal anion gap (3) Diabetes mellitus: Qualifiers: Diabetes mellitus complication status: with skin complications Diabetes mellitus local intermodal truck driver insulin use: with fci use Diabetes mellitus type: type 2 Code(s): E11.9 - Type 2 diabetes mellitus without complications Status: Acute Assessment and Plan: Last A1c 7.4 in January 2022. Blood sugars well controlled during admission. * continue Accu-Cheks, sliding scale insulin, hypoglycemic protocol * home regimen consists of 20 units detemir daily and 5-6 units of NovoLog with meals * continue Lantus 20 units qHS * continue home Jardiance * home janumet is nonformulary (4) Essential (primary) hypertension: Code(s): I10 - Essential (primary) hypertension Status: Acute Assessment and Plan: blood pressure is stable. Last BP 115/71 * continue home amlodipine, lisinopril, HCTZ * monitor BP trends (5) CKD (chronic kidney disease) stage 3, GFR 30-59 ml/min: Qualifiers: Chronic kidney disease stage 3 subtype: unspecified whether 3a or 3b Qualified Code(s): N18.30 - Chronic kidney disease, stage 3 unspecified Code(s): N18.30 - Chronic kidney disease, stage 3 unspecified Status: Acute Assessment and Plan: Renal function is consistent with baseline * monitor BMP Subjective Date/time seen: 03/29/22 15:50 Interval history: Date of service: 03/28/2022 Manjeet Vinson is a 66-year-old male with a history of type 2 diabetes mellitus, CKD, B12 deficiency, hypertension, hyperlipidemia, Charcot foot,? 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 and recent admission 1 month ago for diabetic foot ulcer and cellulitis who is seen in follow-up for left foot ulcer. he feels well today. He has no concerns. No foot pain. Ambulating without difficulty. No nausea, vomiting, fever, chills. Tolerating his diet. No additional concerns. Review of Systems Review of Systems: All systems reviewed & are unremarkable except as noted in HPI and below Exam Narrative
--- NOTE | 2022-03-29 15:50 | PM.IMPN ---
Progress Note: A&P Assessment and Plan (1) Diabetic ulcer of left foot: Code(s): E11.621 - Type 2 diabetes mellitus with foot ulcer; L97.529 - Non-pressure chronic ulcer of other part of left foot with unspecified severity Status: Acute Assessment and Plan: Persistent wound, evaluated at recent hospitalization 1 month ago during which he received IV antibiotics and completed an outpatient course of Augmentin. Patient is followed by Podiatry and was directed to the ED given increased swelling, redness, drainage. foot x-ray showed polyarticular osteoarthritis continue cefepime and vancomycin day #4. Stop Flagyl preliminary wound culture with growth of 3 organisms: staph aureus, group A strep, and pseudomonas. await susceptibility report and tailor antibiotics appropriately. Hopeful that all organisms will have susceptibility to oral agent and patient can be discharged home on p.o. antibiotics appreciate general surgery consultation appreciate wound care evaluation preliminary blood cultures negative to date supportive care. Elevate extremity tight glycemic control (2) Lactic acidosis: Code(s): E87.20 - Acidosis, unspecified Status: Resolved Assessment and Plan: Resolved. Lactic acid 3.2 on presentation normalized following IV fluids IV fluids discontinued 03/27 as patient is tolerating p.o. intake normal anion gap (3) Diabetes mellitus: Qualifiers: Diabetes mellitus complication status: with skin complications Diabetes mellitus terminologist insulin use: with half-way use Diabetes mellitus type: type 2 Code(s): E11.9 - Type 2 diabetes mellitus without complications Status: Acute Assessment and Plan: Last A1c 7.4 in January 2022. Blood sugars well controlled during admission. continue Accu-Cheks, sliding scale insulin, hypoglycemic protocol home regimen consists of 20 units detemir daily and 5-6 units of NovoLog with meals continue Lantus 20 units qHS continue home Jardiance home janumet is nonformulary (4) Essential (primary) hypertension: Code(s): I10 - Essential (primary) hypertension Status: Acute Assessment and Plan: blood pressure is stable. Last BP 115/71 continue home amlodipine, lisinopril, HCTZ monitor BP trends (5) CKD (chronic kidney disease) stage 3, GFR 30-59 ml/min: Qualifiers: Chronic kidney disease stage 3 subtype: unspecified whether 3a or 3b Qualified Code(s): N18.30 - Chronic kidney disease, stage 3 unspecified Code(s): N18.30 - Chronic kidney disease, stage 3 unspecified Status: Acute Assessment and Plan: Renal function is consistent with baseline monitor BMP Subjective Date/time seen: 03/29/22 15:50 Interval history: Date of service: 03/28/2022 Manjeet Vinson is a 66-year-old male with a history of type 2 diabetes mellitus, CKD, B12 deficiency, hypertension, hyperlipidemia, Charcot foot,? 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 and recent admission 1 month ago for diabetic foot ulcer and cellulitis who is seen in follow-up for left foot ulcer. he feels well today. He has no concerns. No foot pain. Ambulating without difficulty. No nausea, vomiting, fever, chills. Tolerating his diet. No additional concerns. Review of Systems Review of Systems: All systems reviewed & are unremarkable except as noted in HPI and below Exam Narrative: General: well-nourished, well-appearing 66-year-old male, sitting up in bed, comfortable, NARD Neuro: awake, alert and oriented x4, speech clear, no focal neuro deficits noted HEENMT: normocephalic, atraumatic, EOMI, sclerae anicteric Respiratory: clear to auscultation bilaterally, nonlabored breathing Cardio: regular rate, regular rhythm with S1-S2 Abdomen: nondistended, normoactive bowel sounds, soft, nontender to palpation Extrem
[2022-03-29 16:10] LABS: Glucose Point of Care 165 mg/dl (65-105)
[2022-03-29 20:28] VITALS: BP 110/68; PULSE 69; RESP 20; TEMP 36.3; O2SAT 93
[2022-03-29] MEDS: INSULIN GLARGINE (*BKC) 100 UNITS/ML 20 UNITS SUB-Q (20:40)
[2022-03-29 21:33] LABS: Glucose Point of Care 229 mg/dl (65-105)
[2022-03-30 05:54] VITALS: BP 116/75; PULSE 76; RESP 20; TEMP 36.7; O2SAT 99
[2022-03-30 06:22] LABS: Hematocrit 41.8 % (42.0-52.0); Hemoglobin 13.4 g/dL (14.0-18.0); Mean Corpuscular HGB Conc 32.1 g/dl (32-36); Mean Corpuscular Hemoglobin 28.9 pg (26-34); Mean Corpuscular Volume 90.3 fl (80-100); Mean Platelet Volume 10.5 fl (7.4-10.4); Platelet Count Result 218 k/mm3 (150-375); Red Blood Count 4.63 M/mm3 (4.6-6.20); Red Cell Distribution Width 14.7 % (11.5-14.5); White Blood Count 6.1 K/mm3 (4.5-10.0)
[2022-03-30 06:35] LABS: Anion Gap 12 mmol/L (8-16); Blood Urea Nitrogen 19 mg/dL (9-20); Carbon Dioxide 26 mmol/L (22-30); Chloride 102 mmol/L (98-107); Estimated CRCL calculation 63 ml/min; Estimated Glomerular Filt Rate > 60; Glucose 144 mg/dL (65-110); Potassium 3.7 mmol/L (3.4-5.0); Sodium 140 mmol/L (137-145)
[2022-03-30 08:03] LABS: Glucose Point of Care 145 mg/dl (65-105)
[2022-03-30] MEDS: amLODIPine BESYLATE 5 MG TABLET PO (08:19)
[2022-03-30] MEDS: ENOXAPARIN 40 MG/0.4 ML SYRINGE SUB-Q (08:19)
[2022-03-30] MEDS: lisinopriL 20 MG TABLET PO (08:20)
[2022-03-30] MEDS: CHOLECALCIFEROL 1,000 UNITS TABLET 2000 UNITS PO (08:20)
[2022-03-30] MEDS: ATORVASTATIN 10 MG TABLET PO (08:21)
[2022-03-30] MEDS: hydroCHLOROthiazide 12.5 MG CAPSULE PO (08:21)
[2022-03-30] MEDS: GABAPENTIN 100 MG CAPSULE 200 MG PO (08:21)
[2022-03-30] MEDS: ASPIRIN 81 MG CHEWABLE TABLET PO (08:21)
[2022-03-30] MEDS: EMPAGLIFLOZIN 10 MG TABLET PO (08:21)
[2022-03-30] MEDS: SILVERGEL (ELTA) 45 ML 1 APPLIC TOPICAL (08:22)
[2022-03-30 11:40] LABS: Glucose Point of Care 216 mg/dl (65-105)
--- NOTE | 2022-03-30 11:56 | PM.DS ---
DS: Admitting Diagnosis Discharge Date 03/30/2022 Admitting Diagnosis Diabetic foot wound DS: Discharge Diagnosis Discharge Diagnosis (1) Diabetic ulcer of left foot: Code(s): E11.621 - Type 2 diabetes mellitus with foot ulcer; L97.529 - Non-pressure chronic ulcer of other part of left foot with unspecified severity Status: Acute Assessment and Plan: Persistent wound, evaluated at recent hospitalization 1 month ago during which he received IV antibiotics and completed an outpatient course of Augmentin. Patient is followed by Podiatry and was directed to the ED given increased swelling, redness, drainage. Foot x-ray showed polyarticular osteoarthritis Received IV cefepime, vancomycin, and flagyl during admission. Flagyl discontinued following initial wound culture results Wound culture with growth of 3 organisms: staph aureus, group A strep, and pseudomonas. Susceptibility reports reviewed and pt started on PO Cipro and Bactrim which he will continue for a total of 10 days of antibiotic therapy. Seen in consultation by General Surgery and Wound Care. No need for intervention. Wound care instructions provided. Continue daily silver gel Outpatient follow up with his patient care representative. Pt has been referred to [facility] for hyperbaric oxygen therapy. Blood cultures negative. (2) Lactic acidosis: Code(s): E87.20 - Acidosis, unspecified Status: Resolved Assessment and Plan: Resolved. Lactic acid 3.2 on presentation. Normal anion gap. Normalized following IV fluids (3) Diabetes mellitus: Qualifiers: Diabetes mellitus complication status: with skin complications Diabetes mellitus mcc insulin use: with mcc use Diabetes mellitus type: type 2 Code(s): E11.9 - Type 2 diabetes mellitus without complications Status: Chronic Assessment and Plan: Last A1c 7.4 in January 2022. Blood sugars well controlled during admission. Continue home regimen of 20 units detemir daily and 5-6 units of NovoLog with meals. Continue home Jardiance and Janumet (4) Essential (primary) hypertension: Code(s): I10 - Essential (primary) hypertension Status: Chronic Assessment and Plan: Blood pressures remained stable. Continue home amlodipine, lisinopril, HCTZ (5) CKD (chronic kidney disease) stage 3, GFR 30-59 ml/min: Qualifiers: Chronic kidney disease stage 3 subtype: unspecified whether 3a or 3b Qualified Code(s): N18.30 - Chronic kidney disease, stage 3 unspecified Code(s): N18.30 - Chronic kidney disease, stage 3 unspecified Status: Chronic Assessment and Plan: Renal function remained consistent with baseline DS: Summary Hospital Course Hospital Course: Date of admission: 03/26/2022 Date of discharge: 03/30/2022 Manjeet Vinson is a 66-year-old male with a history of type 2 diabetes mellitus, CKD, B12 deficiency, hypertension, hyperlipidemia, Charcot foot,? 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 and recent admission 1 month ago for diabetic foot ulcer and cellulitis who presented to the emergency department on 03/26 from his podiatry office under the direction of his patient care representative for initiation of IV antibiotics after the left great toe wound had developed increased swelling redness, and green purulent drainage. 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 He was admitted to the hospitalist service for further evaluation and management was seen in consultation by General surgery. Please see above for further details. The wound was monitored. There was no need for any surgical intervention. Patient remains stable and responded well to I
[2022-03-30] MEDS: INSULIN ASPART (*BKC) 100 UNITS/ML SUB-Q (12:16)
--- NOTE | 2022-03-30 18:17 | PC.NURSE ---
Pt's IV access was discontinued before discharge. IV catheter was intact.
[2022-04-08 11:53] LABS: Glucose Point of Care 156 mg/dl (65-105)
== END 2022-03-30 13:10 | disposition home or self-care (01) | DRG 638 ==
LOC: ANHED 17:42 → ANH3MEDSUR 17:44
PROVIDERS: Physician Assistant; Admitting Provider Student in an Organized Health Care Education/Training Program; Emergency Provider Preventive Medicine Aerospace Medicine; PCP Family Medicine; Visit Provider Physician Assistant
DX: E11.621 Type 2 diabetes mellitus with foot ulcer (principal); A52.16 Charcot's arthropathy (tabetic); E87.20 Acidosis, unspecified; B95.62 Methicillin resistant Staphylococcus aureus infection as the cause of diseases classified elsewhere; B95.0 Streptococcus, group A, as the cause of diseases classified elsewhere; B96.5 Pseudomonas (aeruginosa) (mallei) (pseudomallei) as the cause of diseases classified elsewhere; L97.529 Non-pressure chronic ulcer of other part of left foot with unspecified severity; E11.610 Type 2 diabetes mellitus with diabetic neuropathic arthropathy; E11.22 Type 2 diabetes mellitus with diabetic chronic kidney disease; I12.9 Hypertensive chronic kidney disease with stage 1 through stage 4 chronic kidney disease, or unspecified chronic kidney disease; N18.30 Chronic kidney disease, stage 3 unspecified; E53.8 Deficiency of other specified B group vitamins; E78.5 Hyperlipidemia, unspecified; Z20.822 Contact with and (suspected) exposure to COVID-19
CPT/HCPCS: 36415; 73630; 80048; 80053; 80202; 82565; 82948; 83605; 85025; 85027; 85652; 86140; 87040; 87070; 87077; 87147; 87181; 87186; 87205; 93005; 96361; 96365; 96366; 96367; 96372; 96375; 99285; A9270; C9803; G0378; J0692; J1650; J1815; J3370; J7030; U0003; U0005

== ENCOUNTER 2022-05-03 15:30 | Inpatient (IN) | payer OTHER, SELFPAY ==
--- NOTE | ~2022-05-03 | XR_ITS ---
EXAMINATION: XR tibia fibula LT 2V DATE: 05/03/2022 18:12 INDICATION: Diabetic with cellulitis and left lower leg pain and erythema TECHNIQUE: Anteroposterior and lateral views of the left tibia and fibula were obtained. COMPARISON: None. FINDINGS: Bone alignment is normal. No fracture. Polyarticular osteoarthritis, mild at the patellofemoral brittany rtment of the left knee, the left ankle and the joints at the left hindfoot and moderate to severe at several joints in the left midfoot. Small patellar enthesophyte and multiple enthesopathic consultat ion at the distal patellar tendon. Small left knee joint effusion. No ankle joint effusion. Subcutane ous edema at the left mid to distal calf and about the ankle. No soft tissue gas or radiopaque foreig n bodies. IMPRESSION: 1. Small left knee joint effusion. 2. Particular osteoarthritis at the left knee, ankle and visualized foot greatest in the midfoot grea test moderate to severe. Reviewed, dictated and finalized at location A. D ADJUSTER IMPRESSION: 1. Small left knee joint effusion. 2. Particular osteoarthritis at the left knee, ankle and visualized foot greate st in the midfoot greatest moderate to severe.
--- NOTE | ~2022-05-03 | US_ITS ---
EXAMINATION:US venous doppler LE LT INDICATION:Left lower extremity edema and erythema TECHNIQUE: Multiple grayscale, color flow and Doppler images of the left lower extremity deep venous systems were obtained and reviewed. COMPARISON:06/18/2021 FINDINGS: The common femoral, superficial femoral and popliteal veins demonstrate normal respiratory variation, augmentation and compressibility. Color flow is also seen within the posterior tibial, pe roneal, greater saphenous and profunda veins. There is a lymph node in the left upper thigh measuring 2.6 x 2.4 x 1.4 cm, likely reactive IMPRESSION: 1: No lower extremity deep venous thrombosis. Reviewed, dictated and finalized at location A. OR COLDFUSION DEVELOPER
--- NOTE | ~2022-05-03 | XR_ITS ---
EXAMINATION: XR chest 1V portable DATE: 05/03/2022 18:10 INDICATION: Cough and fever TECHNIQUE: frontal view of the chest was obtained. COMPARISON: Chest radiograph dated 02/27/2022 FINDINGS: Elevation the right hemidiaphragm with chronic linear band of discoid atelectasis/scarring the right mid to lower lung zone. Additional thin linear band of discoid atelectasis/scarring the left midlung zone. No pulmonary edema, pleural effusion or pneumothorax. The cardiomediastinal silhouette is bradford l. There are bridging osteophytes at multiple levels in the spine, consistent with diffuse idiopathic skeletal hyperostosis (DISH). IMPRESSION: 1. Unchanged elevation right hemidiaphragm with bilateral linear bands of discoid atelectasis/scarrin g. No acute cardiopulmonary disease. Reviewed, dictated and finalized at location A. ATION OFFICER IMPRESSION: 1. Unchanged elevation right hemidiaphragm with bilateral linear bands of disco id atelectasis/scarring. No acute cardiopulmonary disease.
[2022-05-03 16:08] VITALS: BP 118/68; PULSE 114; RESP 18; TEMP 38.4; O2SAT 95
[2022-05-03 16:22] LABS: Glucose Point of Care 300 mg/dl (65-105)
--- NOTE | 2022-05-03 17:35 | ECG_ITS ---
Measurements Intervals Wilson Rate: 86 P: 42 NH: 176 QRS: -5 QRSD: 82 T: 29 QT: 351 QTc: 422 Interpretive Statements SINUS RHYTHM BASELINE ARTIFACT- I, II, AVR, AVL, AVF NORMAL ECG COMPARED TO ECG 03/29/2022 14:26:58 NO SIGNIFICANT CHANGES Electronically Signed On 05-03-2022 22:26:12 ENAMEL SPRAYER by Agus Marrufo D.O.
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
[2022-05-03] MEDS: ACETAMINOPHEN 500 MG TABLET 1000 MG PO (18:20)
[2022-05-03 18:35] LABS: Fractional Inspired Oxygen 21 %; HCO3 VBG 26.3 mEq/l (24.0-30.0); PCO2 VBG 38.3 mmHg (42.0-48.0)
[2022-05-03 18:37] LABS: pH VBG 7.454 (7.300-7.400)
[2022-05-03 18:45] LABS: Basophils Absolute Auto 0.1 K/mm3 (0.0-0.1); Basophils Percent Auto 0.3 % (0.2-1.2); Hematocrit 40.3 % (42.0-52.0); Immature Granulocyte Absolute 0.17 K/mm3 (0.00-0.031); Lymphocytes Absolute Auto 0.49 K/mm3 (0.9-3.2); Lymphocytes Percent Auto 2.7 % (18.3-44.2); Mean Corpuscular HGB Conc 32.3 g/dl (32-36); Mean Corpuscular Hemoglobin 29.5 pg (26-34); Mean Corpuscular Volume 91.4 fl (80-100); Mean Platelet Volume 10.6 fl (7.4-10.4); Monocytes Absolute Auto 0.5 K/mm3 (0.1-0.6); Monocytes Percent Auto 2.9 % (2.6-8.5); Neutrophils Absolute Auto 16.6 K/mm3 (1.3-6.7); Neutrophils Percent Auto 93.1 % (45.5-73.1); Platelet Count Result 181 k/mm3 (150-375); Red Blood Count 4.41 M/mm3 (4.6-6.20); Red Cell Distribution Width 15.8 % (11.5-14.5); White Blood Count 17.8 K/mm3 (4.5-10.0)
[2022-05-03 18:50] VITALS: TEMP 39.2
[2022-05-03 18:52] LABS: Appearance Urine Clear (Clear); Bilirubin Urine Negative (Negative); Blood Urine Trace-intact (Negative); Color Urine Yellow (Yellow); Glucose Urine UA 2+ mg/dL (Negative); Ketones Urine 1+ mg/dL (Negative); Leukocyte Esterase Ur Negative LEU/UL (Negative); Nitrate Urine Negative (Negative); Protein Urine 1+ mg/dL (Negative); Specific Grav Ur 1.015 (1.001-1.035); Urobilinogen Urine 0.2 mg/dL (<2.0); pH Urine 5.5 (5.0-9.0)
[2022-05-03 18:55] LABS: Mucus Urine Rare /lpf; RBC Urine 0-2 /hpf (0-2); Squamous Epithelial Cell Urine Rare /hpf (Few); WBC Urine 0-3 /hpf
[2022-05-03 18:55] LABS: INR 1.1; Prothrombin Time 14.1 Seconds (11.1-14.7)
[2022-05-03 18:56] LABS: Partial Thromboplastin Time 30.5 SECONDS (22.3-36.8)
[2022-05-03 18:57] LABS: Lactic Acid Reflex 2.1 mmol/L (0.7-2.0)
[2022-05-03 19:03] LABS: Add Urine Microscopic? YES
[2022-05-03 19:05] LABS: Alanine Aminotransferase 26 U/L (6-50); Albumin Level 4.1 g/dL (3.5-5.1); Alkaline Phosphatase 58 U/L (38-126); Anion Gap 12 mmol/L (8-16); Aspartate Amino Transferase 33 U/L (17-59); Bilirubin,Total 0.9 mg/dL (0.2-1.3); Blood Urea Nitrogen 20 mg/dL (9-20); Calcium 8.8 mg/dL (8.4-10.2); Carbon Dioxide 23 mmol/L (22-30); Chloride 99 mmol/L (98-107); Estimated CRCL calculation 54 ml/min; Estimated Glomerular Filt Rate 51; Glucose 174 mg/dL (65-110); Potassium 3.8 mmol/L (3.4-5.0); Sodium 134 mmol/L (137-145)
[2022-05-03 19:10] LABS: CRP 20.6 mg/dL (<1.0)
[2022-05-03] MEDS: metroNIDAZOLE 500 MG/ISO 100ML 500 MG/100 ML BAG 100 MG IVPB (19:20)
[2022-05-03 19:21] LABS: Influenza A QL RT-PCR Negative (Negative); Influenza B QL RT-PCR Negative (Negative); SARS-CoV-2 RNA PCR Negative
[2022-05-03 20:14] VITALS: BP 118/62; PULSE 92; RESP 20; TEMP 38.8; O2SAT 93
[2022-05-03 20:45] VITALS: TEMP 37.7
[2022-05-03] MEDS: SODIUM CHLORIDE 0.9% IV 1,000 ML 999 ML IV CONT ×2 (21:24)
[2022-05-03 21:40] LABS: Reflex Lactic Acid Yes or No Add Lactic
[2022-05-03 22:00] VITALS: BP 100/55; PULSE 89; RESP 20; TEMP 35.8; O2SAT 92
[2022-05-03 22:26] LABS: Lactic Acid 1.9 mmol/L (0.7-2.0)
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
[2022-05-04 04:16] VITALS: BP 123/68; PULSE 94; RESP 20; TEMP 36.9; O2SAT 94
[2022-05-04] MEDS: metroNIDAZOLE 500 MG/ISO 100ML 500 MG/100 ML BAG 100 MG IVPB ×3 (05:00→22:13)
[2022-05-04 05:46] LABS: Basophils Absolute Auto 0.1 K/mm3 (0.0-0.1); Basophils Percent Auto 0.4 % (0.2-1.2); Eosinophils Percent Auto 0.3 % (0-4.4); Hematocrit 37.7 % (42.0-52.0); Hemoglobin 11.9 g/dL (14.0-18.0); Immature Granulocyte Absolute 0.12 K/mm3 (0.00-0.031); Immature Granulocyte Percent A 0.8 % (0-0.5); Lymphocytes Absolute Auto 0.95 K/mm3 (0.9-3.2); Lymphocytes Percent Auto 6.2 % (18.3-44.2); Mean Corpuscular HGB Conc 31.6 g/dl (32-36); Mean Corpuscular Hemoglobin 28.9 pg (26-34); Mean Corpuscular Volume 91.5 fl (80-100); Mean Platelet Volume 11.5 fl (7.4-10.4); Monocytes Absolute Auto 0.4 K/mm3 (0.1-0.6); Monocytes Percent Auto 2.7 % (2.6-8.5); Neutrophils Absolute Auto 13.8 K/mm3 (1.3-6.7); Neutrophils Percent Auto 89.6 % (45.5-73.1); Platelet Count Result 181 k/mm3 (150-375); Red Blood Count 4.12 M/mm3 (4.6-6.20); White Blood Count 15.4 K/mm3 (4.5-10.0)
[2022-05-04 06:02] LABS: Alanine Aminotransferase 30 U/L (6-50); Albumin Level 3.4 g/dL (3.5-5.1); Alkaline Phosphatase 51 U/L (38-126); Anion Gap 9 mmol/L (8-16); Aspartate Amino Transferase 40 U/L (17-59); Bilirubin,Total 0.6 mg/dL (0.2-1.3); Blood Urea Nitrogen 19 mg/dL (9-20); Carbon Dioxide 25 mmol/L (22-30); Chloride 101 mmol/L (98-107); Estimated CRCL calculation 58 ml/min; Estimated Glomerular Filt Rate 55; Glucose 161 mg/dL (65-110); Potassium 3.4 mmol/L (3.4-5.0); Sodium 135 mmol/L (137-145)
[2022-05-04 08:00] LABS: Glucose Point of Care 176 mg/dl (65-105)
--- NOTE | 2022-05-04 08:02 | PM.IMPN ---
Progress Note: A&P Assessment and Plan (1) Sepsis: Qualifiers: Sepsis type: sepsis due to unspecified organism Sepsis acute organ dysfunction status: without acute organ dysfunction Qualified Code(s): A41.9 - Sepsis, unspecified organism Code(s): A41.9 - Sepsis, unspecified organism Status: Acute Assessment and Plan: Sepsis based on criteria of fever, tachycardia, leukocytosis and in the presence of acute left lower extremity cellulitis. Blood cultures are obtained and are pending. Patient was placed on maintenance IV fluids but not given boluses in the ER. Patient does have chronic kidney disease and is creatinine is bumped minimally he also has some ketones in his urine indicating dehydration. Will give 2 L fluid bolus. Continue antibiotic therapy with cefepime, vanc and Flagyl. (2) Cellulitis of left leg without foot: Code(s): L03.116 - Cellulitis of left lower limb Status: Acute Assessment and Plan: Continue antibiotic therapy with cefepime Flagyl and vancomycin. Blood cultures are pending (3) Lactic acidosis: Code(s): E87.20 - Acidosis, unspecified Status: Resolved Assessment and Plan: Resolved after IV fluid hydration. (4) Type 2 diabetes mellitus with hyperglycemia, with long-term current use of insulin: Code(s): E11.65 - Type 2 diabetes mellitus with hyperglycemia; Z79.4 - assisted (current) use of insulin Status: Acute Assessment and Plan: Will continue the patient's home long-acting insulin. Will also continue patient's mealtime bolus insulin and will add sliding scale insulin as needed moderate sliding scale Accu-Cheks a.c. HS as well as hypoglycemia protocol. (5) CKD (chronic kidney disease) stage 3, GFR 30-59 ml/min: Qualifiers: Chronic kidney disease stage 3 subtype: unspecified whether 3a or 3b Qualified Code(s): N18.30 - Chronic kidney disease, stage 3 unspecified Code(s): N18.30 - Chronic kidney disease, stage 3 unspecified Status: Chronic Assessment and Plan: The patient's creatinine is near baseline. Will repeat BMP in a.m.. Continue IV fluid hydration. The patient did not receive boluses in the ER but I ordered 2 boluses. The patient has a good urine output since boluses were administered. Plan DVT prophylaxis with SCDs GI prophylaxis not indicated Code status full code Subjective Date/time seen: 05/04/22 08:02 Interval history: No overnight events noted. No chest pain or shortness of breath. No nausea, vomiting or diarrhea. No fevers or chills. Review of Systems Review of Systems: 12 point review of systems was assessed and was negative except as noted in the HPI Exam Narrative: General: No acute distress, alert and oriented per baseline HEENT: Atraumatic, normocephalic, mucous membranes moist CV: Regular rate and rhythm, S1, S2 Lungs: Clear to auscultation bilaterally, no rales or crackles noted, no wheezes, good air entry Abdomen: Soft, nontender, nondistended Extremities: Normal to inspection Skin: No rashes noted, no lesions or wounds seen Psych: Euthymic, normal affect Objective Data Vital Signs Vital Signs: Vital Signs - 24 hr 05/03/22 16:08 05/03/22 18:50 05/03/22 20:14 Temperature 101.2 F H 102.5 F H 102 F H Pulse Rate 114 H 92 Respiratory Rate 18 20 Blood Pressure 118/68 118/62 Pulse Oximetry 95 93 Oxygen Delivery Room Air 05/03/22 22:00 05/03/22 20:45 05/04/22 04:16 Temperature 96.5 F L 100 F H 98.4 F Pulse Rate 89 94 Respiratory Rate 20 20 Blood Pressure 100/55 L 123/68 Pulse Oximetry 92 94 Oxygen Delivery Intake/Output Intake/Output: Intake & Output 05/01/22 05/02/22 05/03/22 05/04/22 23:59 23:59 23:59 23:59 Intake Total 250 490 Output Total 800 Balance 250 -310 Meds/Results Medications: Active Medications Generic Name Dose Route Start Last Admin Trade Nam
[2022-05-04] MEDS: INSULIN ASPART (*BKC) 100 UNITS/ML 6 UNITS SUB-Q ×3 (09:04→17:35)
[2022-05-04] MEDS: ENOXAPARIN 40 MG/0.4 ML SYRINGE SUB-Q (09:09)
[2022-05-04] MEDS: ASPIRIN 81 MG CHEWABLE TABLET PO (09:10)
[2022-05-04] MEDS: hydroCHLOROthiazide 12.5 MG CAPSULE PO (09:10)
[2022-05-04] MEDS: GABAPENTIN 100 MG CAPSULE 200 MG PO ×2 (09:11→17:36)
[2022-05-04] MEDS: CHOLECALCIFEROL 1,000 UNITS TABLET 2000 UNITS PO (09:11)
[2022-05-04] MEDS: lisinopriL 20 MG TABLET PO (09:11)
[2022-05-04] MEDS: metFORMIN HCL 500 MG TABLET 1000 MG PO ×2 (09:11→18:58)
[2022-05-04] MEDS: ATORVASTATIN 10 MG TABLET PO (09:12)
[2022-05-04] MEDS: EMPAGLIFLOZIN 10 MG TABLET PO (09:12)
[2022-05-04] MEDS: amLODIPine BESYLATE 5 MG TABLET PO (09:13)
[2022-05-04] MEDS: INSULIN GLARGINE (*BKC) 100 UNITS/ML 20 UNITS SUB-Q (10:23)
[2022-05-04] MEDS: SODIUM CHLORIDE 0.9% IV 1,000 ML 125 ML IV CONT ×3 (11:40→21:15)
[2022-05-04 12:07] LABS: Glucose Point of Care 164 mg/dl (65-105)
[2022-05-04 14:00] VITALS: BP 125/63; PULSE 88; RESP 20; TEMP 37.2; O2SAT 92
[2022-05-04 17:31] LABS: Glucose Point of Care 123 mg/dl (65-105)
[2022-05-04 19:05] VITALS: BP 112/48; PULSE 89; RESP 18; TEMP 36.6; O2SAT 90
[2022-05-04 22:33] LABS: Glucose Point of Care 88 mg/dl (65-105)
[2022-05-05] VITALS (7 sets, daily range): BP systolic 104–127; BP diastolic 41–67; PULSE 79–85; RESP 18–20; TEMP 36.7–37.1; O2SAT 90–95
[2022-05-05] MEDS: metroNIDAZOLE 500 MG/ISO 100ML 500 MG/100 ML BAG 100 MG IVPB ×3 (05:09→21:05)
[2022-05-05 06:09] LABS: Basophils Percent Auto 0.3 % (0.2-1.2); Eosinophils Absolute Auto 0.1 K/mm3 (0-0.3); Eosinophils Percent Auto 0.6 % (0-4.4); Hematocrit 31.5 % (42.0-52.0); Hemoglobin 10.2 g/dL (14.0-18.0); Immature Granulocyte Absolute 0.05 K/mm3 (0.00-0.031); Immature Granulocyte Percent A 0.5 % (0-0.5); Lymphocytes Absolute Auto 0.97 K/mm3 (0.9-3.2); Lymphocytes Percent Auto 10.3 % (18.3-44.2); Mean Corpuscular HGB Conc 32.4 g/dl (32-36); Mean Corpuscular Hemoglobin 28.4 pg (26-34); Mean Corpuscular Volume 87.7 fl (80-100); Mean Platelet Volume 10.1 fl (7.4-10.4); Monocytes Absolute Auto 0.6 K/mm3 (0.1-0.6); Monocytes Percent Auto 5.9 % (2.6-8.5); Neutrophils Absolute Auto 7.8 K/mm3 (1.3-6.7); Neutrophils Percent Auto 82.4 % (45.5-73.1); Platelet Count Result 138 k/mm3 (150-375); Red Blood Count 3.59 M/mm3 (4.6-6.20); Red Cell Distribution Width 15.9 % (11.5-14.5); White Blood Count 9.4 K/mm3 (4.5-10.0)
[2022-05-05 06:27] LABS: Alanine Aminotransferase 23 U/L (6-50); Alkaline Phosphatase 52 U/L (38-126); Anion Gap 6 mmol/L (8-16); Aspartate Amino Transferase 25 U/L (17-59); Bilirubin,Total 0.6 mg/dL (0.2-1.3); Blood Urea Nitrogen 16 mg/dL (9-20); Calcium 7.7 mg/dL (8.4-10.2); Carbon Dioxide 22 mmol/L (22-30); Chloride 103 mmol/L (98-107); Estimated CRCL calculation 58 ml/min; Estimated Glomerular Filt Rate 55; Glucose 88 mg/dL (65-110); Potassium 3.4 mmol/L (3.4-5.0); Sodium 131 mmol/L (137-145)
[2022-05-05 08:52] LABS: Glucose Point of Care 95 mg/dl (65-105)
[2022-05-05] MEDS: ENOXAPARIN 40 MG/0.4 ML SYRINGE SUB-Q (08:54)
[2022-05-05] MEDS: INSULIN GLARGINE (*BKC) 100 UNITS/ML 20 UNITS SUB-Q (08:55)
[2022-05-05] MEDS: GABAPENTIN 100 MG CAPSULE 200 MG PO ×2 (08:56→17:17)
[2022-05-05] MEDS: EMPAGLIFLOZIN 10 MG TABLET PO (08:56)
[2022-05-05] MEDS: CHOLECALCIFEROL 1,000 UNITS TABLET 2000 UNITS PO (08:56)
[2022-05-05] MEDS: ATORVASTATIN 10 MG TABLET PO (08:56)
[2022-05-05] MEDS: ASPIRIN 81 MG CHEWABLE TABLET PO (08:56)
[2022-05-05] MEDS: metFORMIN HCL 500 MG TABLET 1000 MG PO ×2 (08:57→17:18)
[2022-05-05] MEDS: hydroCHLOROthiazide 12.5 MG CAPSULE PO (08:57)
[2022-05-05 11:43] LABS: Glucose Point of Care 93 mg/dl (65-105)
--- NOTE | 2022-05-05 12:39 | PC.NURSE ---
Roxanne Pandya PA notified of scheduled novolog not give 0800 dose or 1200 dose due to glucose 93 and 95. Pt stated he would not take any insulin at home until his glucose is greater then 120
--- NOTE | 2022-05-05 14:05 | PM.IMPN ---
Progress Note: A&P Assessment and Plan (1) Sepsis: Qualifiers: Sepsis type: sepsis due to unspecified organism Sepsis acute organ dysfunction status: without acute organ dysfunction Qualified Code(s): A41.9 - Sepsis, unspecified organism Code(s): A41.9 - Sepsis, unspecified organism Status: Acute Assessment and Plan: Sepsis based on criteria of fever, tachycardia, leukocytosis and in the presence of acute left lower extremity cellulitis.? Blood cultures are pending.? Patient was rehydrated with IV fluids and is now tolerating PO intake. Will discontinue IV fluids given lower extremity edema. Continue antibiotic therapy with cefepime, vanc and Flagyl. Leukocytosis resolved and patient is afebrile today. (2) Cellulitis of left leg without foot: Code(s): L03.116 - Cellulitis of left lower limb Status: Acute Assessment and Plan: Area has been marked and will monitor with serial exams. CRP 20.6 Continue antibiotic therapy with cefepime Flagyl and vancomycin as above Supportive care. Analgesics available as needed Elevate the extremity Will evaluate venous Doppler to ensure no DVT Outlined area with marker today. Continue to follow serial exams (3) Lactic acidosis: Code(s): E87.20 - Acidosis, unspecified Status: Resolved Assessment and Plan: Resolved with IV fluid rehydration (4) Type 2 diabetes mellitus with hyperglycemia, with long-term current use of insulin: Code(s): E11.65 - Type 2 diabetes mellitus with hyperglycemia; Z79.4 - watermelon inspector (current) use of insulin Status: Acute Assessment and Plan: Last A1c 7.4 in January 2022. Blood sugars have been stable ranging from 88-93 today Continue with Accu-Cheks, sliding scale insulin, and hypoglycemic protocol Continue home Lantus with 20% dose reduction. 16 units q.h.s. Will hold on scheduled NovoLog with meals well sliding scale is in place Continue home Januvia Check updated A1c Monitor glucose trends and adjust as needed (5) CKD (chronic kidney disease) stage 3, GFR 30-59 ml/min: Qualifiers: Chronic kidney disease stage 3 subtype: unspecified whether 3a or 3b Qualified Code(s): N18.30 - Chronic kidney disease, stage 3 unspecified Code(s): N18.30 - Chronic kidney disease, stage 3 unspecified Status: Chronic Assessment and Plan: Renal function is consistent with baseline Patient has received IV fluid rehydration which has now been discontinued as patient is tolerating p.o. intake (6) Diabetic ulcer of left foot: Code(s): E11.621 - Type 2 diabetes mellitus with foot ulcer; L97.529 - Non-pressure chronic ulcer of other part of left foot with unspecified severity Status: Chronic Assessment and Plan: Unchanged, no acute issues. Patient follows with Podiat[facility] and [facility] Continue with daily dressing changes, packing and ointment per patient's home wound care regimen Wound consult to be completed tomorrow. Appreciate recommendation Subjective Date/time seen: 05/05/22 14:05 Interval history: Date of service: 05/05/2022 Manjeet Vinson is a 66-year-old male with a history of type 2 diabetes mellitus, CKD, B12 deficiency, hypertension, hyperlipidemia, Charcot foot,? 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 and recent admission 1 month ago for left foot diabetic ulcer who is seen in follow-up for cellulitis of the left lower extremity. Patient states his left lower extremity is more swollen today. He also notes increased redness. He had a patch on his left knee that he states has resolved but he has noticed some medial spread towards his thigh. The area feels very warm and he has not noticed any improvement in his symptoms today. He states the leg feels very tight. He endorses chills but has not had any fevers today. Denies nausea or vomiting. He has occ
--- NOTE | 2022-05-05 15:09 | PC.NURSE ---
0800 antonio GRAYSON notified of bp 104/41 and holding am bp meds
[2022-05-05 16:36] LABS: Glucose Point of Care 138 mg/dl (65-105)
[2022-05-05] MEDS: SALINE 0.65% NAS SOLN 44 ML BTL 1 SPRAY NASAL (17:17)
[2022-05-05 21:40] LABS: Glucose Point of Care 120 mg/dl (65-105)
[2022-05-06 01:33] LABS: Basophils Percent Auto 0.3 % (0.2-1.2); Eosinophils Absolute Auto 0.1 K/mm3 (0-0.3); Eosinophils Percent Auto 1.1 % (0-4.4); Hematocrit 31.1 % (42.0-52.0); Hemoglobin 10.1 g/dL (14.0-18.0); Immature Granulocyte Absolute 0.06 K/mm3 (0.00-0.031); Immature Granulocyte Percent A 0.8 % (0-0.5); Lymphocytes Absolute Auto 0.81 K/mm3 (0.9-3.2); Lymphocytes Percent Auto 10.2 % (18.3-44.2); Mean Corpuscular HGB Conc 32.5 g/dl (32-36); Mean Corpuscular Hemoglobin 28.2 pg (26-34); Mean Corpuscular Volume 86.9 fl (80-100); Mean Platelet Volume 10.1 fl (7.4-10.4); Monocytes Absolute Auto 0.6 K/mm3 (0.1-0.6); Monocytes Percent Auto 7.3 % (2.6-8.5); Neutrophils Absolute Auto 6.4 K/mm3 (1.3-6.7); Neutrophils Percent Auto 80.3 % (45.5-73.1); Platelet Count Result 147 k/mm3 (150-375); Red Blood Count 3.58 M/mm3 (4.6-6.20); Red Cell Distribution Width 15.5 % (11.5-14.5); White Blood Count 7.9 K/mm3 (4.5-10.0)
[2022-05-06 02:10] LABS: Alanine Aminotransferase 22 U/L (6-50); Albumin Level 2.9 g/dL (3.5-5.1); Alkaline Phosphatase 55 U/L (38-126); Anion Gap 7 mmol/L (8-16); Aspartate Amino Transferase 24 U/L (17-59); Bilirubin,Total 0.6 mg/dL (0.2-1.3); Blood Urea Nitrogen 18 mg/dL (9-20); Calcium 7.8 mg/dL (8.4-10.2); Carbon Dioxide 22 mmol/L (22-30); Chloride 102 mmol/L (98-107); Estimated CRCL calculation 63 ml/min; Estimated Glomerular Filt Rate > 60; Glucose 100 mg/dL (65-110); Potassium 3.2 mmol/L (3.4-5.0); Sodium 131 mmol/L (137-145)
[2022-05-06 02:50] LABS: Hemoglobin A1C 7.9 % (<5.7)
[2022-05-06 03:08] LABS: Vancomycin Trough 13.5 ug/mL (10.0-20.0)
[2022-05-06 04:04] VITALS: BP 125/62; PULSE 80; RESP 20; TEMP 36.4; O2SAT 90
[2022-05-06] MEDS: metroNIDAZOLE 500 MG/ISO 100ML 500 MG/100 ML BAG 100 MG IVPB ×3 (05:12→21:10)
[2022-05-06 05:37] LABS: CRP 23.7 mg/dL (<1.0)
[2022-05-06] MEDS: POTASSIUM CHLORIDE 20 MEQ TABLET 40 MEQ PO (08:05)
[2022-05-06 08:44] LABS: Glucose Point of Care 109 mg/dl (65-105)
[2022-05-06] MEDS: SILVERGEL (ELTA) 45 ML 1 APPLIC TOPICAL (09:48)
[2022-05-06] MEDS: ASPIRIN 81 MG CHEWABLE TABLET PO (09:49)
[2022-05-06] MEDS: EMPAGLIFLOZIN 10 MG TABLET PO (09:49)
[2022-05-06] MEDS: lisinopriL 20 MG TABLET PO (09:49)
[2022-05-06] MEDS: ENOXAPARIN 40 MG/0.4 ML SYRINGE SUB-Q (09:49)
[2022-05-06] MEDS: GABAPENTIN 100 MG CAPSULE 200 MG PO ×2 (09:49→16:31)
[2022-05-06] MEDS: CHOLECALCIFEROL 1,000 UNITS TABLET 2000 UNITS PO (09:50)
[2022-05-06] MEDS: metFORMIN HCL 500 MG TABLET 1000 MG PO ×2 (09:50→16:31)
[2022-05-06] MEDS: amLODIPine BESYLATE 5 MG TABLET PO (09:50)
[2022-05-06 09:51] VITALS: RESP 20; O2SAT 91
[2022-05-06] MEDS: hydroCHLOROthiazide 12.5 MG CAPSULE PO (09:51)
[2022-05-06] MEDS: ATORVASTATIN 10 MG TABLET PO (09:51)
[2022-05-06 12:30] LABS: Glucose Point of Care 111 mg/dl (65-105)
[2022-05-06 14:10] VITALS: BP 119/63; PULSE 76; RESP 22; TEMP 36.6; O2SAT 93
--- NOTE | 2022-05-06 15:20 | PM.IMPN ---
Progress Note: A&P Assessment and Plan (1) Sepsis: Qualifiers: Sepsis type: sepsis due to unspecified organism Sepsis acute organ dysfunction status: without acute organ dysfunction Qualified Code(s): A41.9 - Sepsis, unspecified organism Code(s): A41.9 - Sepsis, unspecified organism Status: Acute Assessment and Plan: Sepsis based on criteria of fever, tachycardia, leukocytosis and in the presence of acute left lower extremity cellulitis.? Blood cultures are pending, negative to date Patient was rehydrated with IV fluids and is now tolerating PO intake. Continue antibiotic therapy with cefepime, vanc and Flagyl. Leukocytosis resolved and patient is afebrile since 05/03 (2) Cellulitis of left leg without foot: Code(s): L03.116 - Cellulitis of left lower limb Status: Acute Assessment and Plan: presented with erythematous, edematous, warm left calf. CRP 23.7 Continue antibiotic therapy with cefepime, Flagyl, and vancomycin as above Supportive care. Analgesics available as needed Elevate the extremity Outlined area with marker today. Continue to follow serial exams venous Doppler of left lower extremity negative for DVT (3) Lactic acidosis: Code(s): E87.20 - Acidosis, unspecified Status: Resolved Assessment and Plan: Resolved with IV fluid rehydration (4) Type 2 diabetes mellitus with hyperglycemia, with long-term current use of insulin: Code(s): E11.65 - Type 2 diabetes mellitus with hyperglycemia; Z79.4 - contact center agent (current) use of insulin Status: Acute Assessment and Plan: A1c is 7.9 Blood sugars have been stable ranging from 100-110 today Continue with Accu-Cheks, sliding scale insulin, and hypoglycemic protocol Continue home Lantus with 20% dose reduction. 16 units q.h.s. Will hold on scheduled NovoLog with meals while sliding scale is in place Continue home Januvia Monitor glucose trends and adjust as needed (5) CKD (chronic kidney disease) stage 3, GFR 30-59 ml/min: Qualifiers: Chronic kidney disease stage 3 subtype: unspecified whether 3a or 3b Qualified Code(s): N18.30 - Chronic kidney disease, stage 3 unspecified Code(s): N18.30 - Chronic kidney disease, stage 3 unspecified Status: Chronic Assessment and Plan: Renal function is consistent with baseline monitor BMP (6) Diabetic ulcer of left foot: Code(s): E11.621 - Type 2 diabetes mellitus with foot ulcer; L97.529 - Non-pressure chronic ulcer of other part of left foot with unspecified severity Status: Chronic Assessment and Plan: Unchanged, no acute issues. Patient follows with Podiatry and [facility] Continue with daily dressing changes, packing and ointment per patient's home wound care regimen Appreciate wound care evaluation Subjective Date/time seen: 05/06/22 15:20 Interval history: Date of service: 05/06/2022 Manjeet Vinson is a 66-year-old male with a history of type 2 diabetes mellitus, CKD, B12 deficiency, hypertension, hyperlipidemia, Charcot foot,? 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 and recent admission 1 month ago for left foot diabetic ulcer who is seen in follow-up for cellulitis of the left lower extremity. he is doing well today. He has no pain in his lower extremity but does endorse a discomfort and heaviness sensation. He is able to bear weight but this does cause some discomfort. He reports his swelling is persistent and notes no improvement. Endorses some small fluid-filled blisters on [place] surface [place]. Notes no change in redness or warmth. Denies fevers, chills, nausea, vomiting, abdominal pain, fevers, or chills. No drainage from his foot wound. No shortness of breath, cough, chest pain, or palpitations. Review of Systems Review of Systems: All systems reviewed & are unremarkable exce
[2022-05-06 16:53] LABS: Glucose Point of Care 157 mg/dl (65-105)
[2022-05-06 19:44] VITALS: BP 125/65; PULSE 74; RESP 20; TEMP 36.5; O2SAT 96
[2022-05-06 20:00] VITALS: O2SAT 96
[2022-05-06 20:24] LABS: Glucose Point of Care 127 mg/dl (65-105)
[2022-05-07 04:51] VITALS: BP 119/61; PULSE 92; RESP 18; TEMP 36.6; O2SAT 92
[2022-05-07 05:30] LABS: Basophils Absolute Auto 0.1 K/mm3 (0.0-0.1); Basophils Percent Auto 0.8 % (0.2-1.2); Eosinophils Absolute Auto 0.1 K/mm3 (0-0.3); Hematocrit 31.5 % (42.0-52.0); Hemoglobin 10.4 g/dL (14.0-18.0); Immature Granulocyte Absolute 0.07 K/mm3 (0.00-0.031); Immature Granulocyte Percent A 1.1 % (0-0.5); Lymphocytes Absolute Auto 0.76 K/mm3 (0.9-3.2); Lymphocytes Percent Auto 11.4 % (18.3-44.2); Mean Corpuscular Hemoglobin 29.4 pg (26-34); Mean Platelet Volume 10.1 fl (7.4-10.4); Monocytes Absolute Auto 0.7 K/mm3 (0.1-0.6); Neutrophils Absolute Auto 4.9 K/mm3 (1.3-6.7); Neutrophils Percent Auto 73.7 % (45.5-73.1); Platelet Count Result 162 k/mm3 (150-375); Red Blood Count 3.54 M/mm3 (4.6-6.20); Red Cell Distribution Width 15.3 % (11.5-14.5); White Blood Count 6.7 K/mm3 (4.5-10.0)
[2022-05-07 05:37] LABS: Alanine Aminotransferase 19 U/L (6-50); Albumin Level 2.9 g/dL (3.5-5.1); Alkaline Phosphatase 53 U/L (38-126); Anion Gap 7 mmol/L (8-16); Aspartate Amino Transferase 23 U/L (17-59); Bilirubin,Total 0.4 mg/dL (0.2-1.3); Blood Urea Nitrogen 16 mg/dL (9-20); Calcium 8.3 mg/dL (8.4-10.2); Carbon Dioxide 26 mmol/L (22-30); Chloride 102 mmol/L (98-107); Estimated CRCL calculation 63 ml/min; Estimated Glomerular Filt Rate > 60; Glucose 118 mg/dL (65-110); Potassium 3.7 mmol/L (3.4-5.0); Sodium 135 mmol/L (137-145)
[2022-05-07 06:22] LABS: CRP 16.9 mg/dL (<1.0)
--- NOTE | 2022-05-07 06:40 | PC.NURSE ---
IV PLACED 05/06 BY VASCULAR ACCESS NURSE. IV ACCESS IS WORKING BUT ONLY ALLOWING SLOW RUNNING IV FLUIDS. PT IS ON MULTIPLE ABX INCLUDING VANC WHICH IS IRRITATING THE VEIN. THE FASTEST RATE THE IV IS ALLOWING THE VANC TO RUN IS 100ML/HR. CALLED VASCULAR ACCESS NURSE ALENA AND SHE STATED THE BEST THING TO DO IS CONTINUE TO RUN THE VANC SLOW IN ATTEMPTS TO SAVE THE IV. PT WILL BE BEHIND ON HIS MORNING DOSES OF ABX. WILL PASS INFORMATION ON TO DAY SHIFT NURSE.
[2022-05-07] MEDS: metroNIDAZOLE 500 MG/ISO 100ML 500 MG/100 ML BAG 100 MG IVPB ×3 (08:20→22:10)
[2022-05-07] MEDS: ATORVASTATIN 10 MG TABLET PO (08:26)
[2022-05-07] MEDS: CHOLECALCIFEROL 1,000 UNITS TABLET 2000 UNITS PO (08:27)
[2022-05-07] MEDS: EMPAGLIFLOZIN 10 MG TABLET PO (08:27)
[2022-05-07] MEDS: hydroCHLOROthiazide 12.5 MG CAPSULE PO (08:27)
[2022-05-07] MEDS: amLODIPine BESYLATE 5 MG TABLET PO (08:27)
[2022-05-07] MEDS: ASPIRIN 81 MG CHEWABLE TABLET PO (08:27)
[2022-05-07] MEDS: metFORMIN HCL 500 MG TABLET 1000 MG PO ×2 (08:28→17:50)
[2022-05-07] MEDS: lisinopriL 20 MG TABLET PO (08:28)
[2022-05-07] MEDS: GABAPENTIN 100 MG CAPSULE 200 MG PO ×2 (08:28→17:50)
[2022-05-07] MEDS: ENOXAPARIN 40 MG/0.4 ML SYRINGE SUB-Q (08:28)
[2022-05-07] MEDS: SILVERGEL (ELTA) 45 ML 1 APPLIC TOPICAL (08:30)
[2022-05-07] MEDS: INSULIN GLARGINE (*BKC) 100 UNITS/ML 16 UNITS SUB-Q (08:36)
[2022-05-07 08:54] LABS: Glucose Point of Care 120 mg/dl (65-105)
[2022-05-07 12:05] LABS: Glucose Point of Care 152 mg/dl (65-105)
[2022-05-07] MEDS: FUROSEMIDE INJ 40 MG/4 ML VIAL IV PUSH (12:42)
[2022-05-07 14:30] VITALS: BP 115/60; PULSE 74; RESP 16; TEMP 36.8; O2SAT 96
--- NOTE | 2022-05-07 15:59 | P.PNIM_ITS ---
Progress Note: A&P Assessment and Plan (1) Sepsis: Qualifiers: Sepsis type: sepsis due to unspecified organism Sepsis acute organ dysfunction status: without acute organ dysfunction Qualified Code(s): A41.9 - Sepsis, unspecified organism Code(s): A41.9 - Sepsis, unspecified organism Status: Acute Assessment and Plan: Sepsis based on criteria of fever, tachycardia, leukocytosis and in the presence of acute left lower extremity cellulitis.? * Blood cultures are pending, negative to date * Patient was rehydrated with IV fluids and is now tolerating PO intake. * Continue antibiotic therapy with cefepime, vanc and Flagyl. * Leukocytosis resolved and patient is afebrile since 05/03 (2) Cellulitis of left leg without foot: Code(s): L03.116 - Cellulitis of left lower limb Status: Acute Assessment and Plan: presented with erythematous, edematous, warm left calf. No improvement on exam today with maybe slight increase in erythema * Continue antibiotic therapy with cefepime, Flagyl, and vancomycin as above * Supportive care. Analgesics available as needed * Elevate the extremity * Outlined area with marker. Continue to follow serial exams * Venous Doppler of left lower extremity negative for DVT * 40 mg IV Lasix x1 today to improve edema * CRP with downward trend to 16.9 today (3) Lactic acidosis: Code(s): E87.20 - Acidosis, unspecified Status: Resolved Assessment and Plan: Resolved with IV fluid rehydration (4) Type 2 diabetes mellitus with hyperglycemia, with long-term current use of insulin: Code(s): E11.65 - Type 2 diabetes mellitus with hyperglycemia; Z79.4 - termite control servicer (current) use of insulin Status: Acute Assessment and Plan: A1c is 7.9 Blood sugars have been stable ranging from 120-150 today * Continue with Accu-Cheks, sliding scale insulin, and hypoglycemic protocol * Continue home Lantus with 20% dose reduction. 16 units q.h.s. * Will hold on scheduled NovoLog with meals while sliding scale is in place * Continue home Januvia * Monitor glucose trends and adjust as needed (5) CKD (chronic kidney disease) stage 3, GFR 30-59 ml/min: Qualifiers: Chronic kidney disease stage 3 subtype: unspecified whether 3a or 3b Qualified Code(s): N18.30 - Chronic kidney disease, stage 3 unspecified Code(s): N18.30 - Chronic kidney disease, stage 3 unspecified Status: Chronic Assessment and Plan: Renal function is consistent with baseline * monitor BMP (6) Diabetic ulcer of left foot: Code(s): E11.621 - Type 2 diabetes mellitus with foot ulcer; L97.529 - Non-pressure chronic ulcer of other part of left foot with unspecified severity Status: Chronic Assessment and Plan: Unchanged, no acute issues. Patient follows with Podiatry and [facility] * Continue with daily dressing changes, packing and ointment per patient's home wound care regimen * Appreciate wound care evaluation Subjective Date/time seen: 05/07/22 15:59 Interval history: Date of service: 05/07/2022 Manjeet Vinson is a 66-year-old male with a history of type 2 diabetes mellitus, CKD, B12 deficiency, hypertension, hyperlipidemia, Charcot foot,? 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 and recent admission 1 month ago for left foot diabetic ulcer who is seen in follow-up for cellulitis of the left lower extremity. he complains of increased discomfort in his left lower extremities today when he is Standin
--- NOTE | 2022-05-07 15:59 | PM.IMPN ---
Progress Note: A&P Assessment and Plan (1) Sepsis: Qualifiers: Sepsis type: sepsis due to unspecified organism Sepsis acute organ dysfunction status: without acute organ dysfunction Qualified Code(s): A41.9 - Sepsis, unspecified organism Code(s): A41.9 - Sepsis, unspecified organism Status: Acute Assessment and Plan: Sepsis based on criteria of fever, tachycardia, leukocytosis and in the presence of acute left lower extremity cellulitis.? Blood cultures are pending, negative to date Patient was rehydrated with IV fluids and is now tolerating PO intake. Continue antibiotic therapy with cefepime, vanc and Flagyl. Leukocytosis resolved and patient is afebrile since 05/03 (2) Cellulitis of left leg without foot: Code(s): L03.116 - Cellulitis of left lower limb Status: Acute Assessment and Plan: presented with erythematous, edematous, warm left calf. No improvement on exam today with maybe slight increase in erythema Continue antibiotic therapy with cefepime, Flagyl, and vancomycin as above Supportive care. Analgesics available as needed Elevate the extremity Outlined area with marker. Continue to follow serial exams Venous Doppler of left lower extremity negative for DVT 40 mg IV Lasix x1 today to improve edema CRP with downward trend to 16.9 today (3) Lactic acidosis: Code(s): E87.20 - Acidosis, unspecified Status: Resolved Assessment and Plan: Resolved with IV fluid rehydration (4) Type 2 diabetes mellitus with hyperglycemia, with long-term current use of insulin: Code(s): E11.65 - Type 2 diabetes mellitus with hyperglycemia; Z79.4 - structural engineering project manager (current) use of insulin Status: Acute Assessment and Plan: A1c is 7.9 Blood sugars have been stable ranging from 120-150 today Continue with Accu-Cheks, sliding scale insulin, and hypoglycemic protocol Continue home Lantus with 20% dose reduction. 16 units q.h.s. Will hold on scheduled NovoLog with meals while sliding scale is in place Continue home Januvia Monitor glucose trends and adjust as needed (5) CKD (chronic kidney disease) stage 3, GFR 30-59 ml/min: Qualifiers: Chronic kidney disease stage 3 subtype: unspecified whether 3a or 3b Qualified Code(s): N18.30 - Chronic kidney disease, stage 3 unspecified Code(s): N18.30 - Chronic kidney disease, stage 3 unspecified Status: Chronic Assessment and Plan: Renal function is consistent with baseline monitor BMP (6) Diabetic ulcer of left foot: Code(s): E11.621 - Type 2 diabetes mellitus with foot ulcer; L97.529 - Non-pressure chronic ulcer of other part of left foot with unspecified severity Status: Chronic Assessment and Plan: Unchanged, no acute issues. Patient follows with Podiatry and [facility] Continue with daily dressing changes, packing and ointment per patient's home wound care regimen Appreciate wound care evaluation Subjective Date/time seen: 05/07/22 15:59 Interval history: Date of service: 05/07/2022 Manjeet Vinson is a 66-year-old male with a history of type 2 diabetes mellitus, CKD, B12 deficiency, hypertension, hyperlipidemia, Charcot foot,? 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 and recent admission 1 month ago for left foot diabetic ulcer who is seen in follow-up for cellulitis of the left lower extremity. he complains of increased discomfort in his left lower extremities today when he is Standing or walking. His is at the bedside and she believes the redness has increased about half an inch outside of the marked border area. he notes that his swelling is improved if he has his feet up when he rests them down to sit up in eat he becomes more swollen. Denies any drainage or purulence. Denies any red streaking up the leg. He denies fever, chills, nausea, vomiting, dizziness,
[2022-05-07 16:46] LABS: Vancomycin Trough 18.8 ug/mL (10.0-20.0)
[2022-05-07 17:17] LABS: Glucose Point of Care 153 mg/dl (65-105)
[2022-05-07 19:58] VITALS: BP 117/62; PULSE 72; RESP 18; TEMP 37.4; O2SAT 96
[2022-05-07 22:38] LABS: Glucose Point of Care 154 mg/dl (65-105)
[2022-05-08 05:53] VITALS: BP 116/60; PULSE 70; RESP 20; TEMP 36.6; O2SAT 95
[2022-05-08 05:56] LABS: Alanine Aminotransferase 21 U/L (6-50); Albumin Level 3.1 g/dL (3.5-5.1); Alkaline Phosphatase 54 U/L (38-126); Anion Gap 8 mmol/L (8-16); Aspartate Amino Transferase 31 U/L (17-59); Bilirubin,Total 0.5 mg/dL (0.2-1.3); Blood Urea Nitrogen 16 mg/dL (9-20); Calcium 8.1 mg/dL (8.4-10.2); Carbon Dioxide 26 mmol/L (22-30); Chloride 99 mmol/L (98-107); Estimated CRCL calculation 68 ml/min; Estimated Glomerular Filt Rate > 60; Glucose 148 mg/dL (65-110); Potassium 3.5 mmol/L (3.4-5.0); Sodium 133 mmol/L (137-145)
[2022-05-08 05:57] LABS: Basophils Absolute Auto 0.1 K/mm3 (0.0-0.1); Basophils Percent Auto 0.6 % (0.2-1.2); Eosinophils Absolute Auto 0.2 K/mm3 (0-0.3); Eosinophils Percent Auto 2.1 % (0-4.4); Hematocrit 33.1 % (42.0-52.0); Hemoglobin 10.9 g/dL (14.0-18.0); Immature Granulocyte Absolute 0.17 K/mm3 (0.00-0.031); Immature Granulocyte Percent A 2.1 % (0-0.5); Lymphocytes Absolute Auto 0.92 K/mm3 (0.9-3.2); Lymphocytes Percent Auto 11.2 % (18.3-44.2); Mean Corpuscular HGB Conc 32.9 g/dl (32-36); Mean Corpuscular Hemoglobin 29.1 pg (26-34); Mean Corpuscular Volume 88.5 fl (80-100); Mean Platelet Volume 10.5 fl (7.4-10.4); Monocytes Absolute Auto 0.8 K/mm3 (0.1-0.6); Monocytes Percent Auto 9.9 % (2.6-8.5); Neutrophils Absolute Auto 6.1 K/mm3 (1.3-6.7); Neutrophils Percent Auto 74.1 % (45.5-73.1); Platelet Count Result 191 k/mm3 (150-375); Red Blood Count 3.74 M/mm3 (4.6-6.20); Red Cell Distribution Width 15.5 % (11.5-14.5); White Blood Count 8.2 K/mm3 (4.5-10.0)
[2022-05-08 06:14] LABS: CRP 15.5 mg/dL (<1.0)
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
[2022-05-08 07:40] VITALS: RESP 20; O2SAT 95
[2022-05-08] MEDS: metroNIDAZOLE 500 MG/ISO 100ML 500 MG/100 ML BAG 100 MG IVPB ×2 (07:40→13:50)
[2022-05-08] MEDS: amLODIPine BESYLATE 5 MG TABLET PO (08:28)
[2022-05-08] MEDS: ENOXAPARIN 40 MG/0.4 ML SYRINGE SUB-Q (08:29)
[2022-05-08] MEDS: lisinopriL 20 MG TABLET PO (08:29)
[2022-05-08] MEDS: hydroCHLOROthiazide 12.5 MG CAPSULE PO (08:29)
[2022-05-08] MEDS: EMPAGLIFLOZIN 10 MG TABLET PO (08:29)
[2022-05-08] MEDS: ASPIRIN 81 MG CHEWABLE TABLET PO (08:29)
[2022-05-08] MEDS: CHOLECALCIFEROL 1,000 UNITS TABLET 2000 UNITS PO (08:29)
[2022-05-08] MEDS: GABAPENTIN 100 MG CAPSULE 200 MG PO ×2 (08:29→16:42)
[2022-05-08] MEDS: ATORVASTATIN 10 MG TABLET PO (08:29)
[2022-05-08] MEDS: metFORMIN HCL 500 MG TABLET 1000 MG PO ×2 (08:29→16:42)
[2022-05-08 08:52] LABS: Glucose Point of Care 162 mg/dl (65-105)
[2022-05-08] MEDS: INSULIN GLARGINE (*BKC) 100 UNITS/ML 16 UNITS SUB-Q (09:17)
[2022-05-08] MEDS: SILVERGEL (ELTA) 45 ML 1 APPLIC TOPICAL (09:36)
--- NOTE | 2022-05-08 09:45 | PM.IMPN ---
Progress Note: A&P Assessment and Plan (1) Sepsis: Qualifiers: Sepsis acute organ dysfunction status: without acute organ dysfunction Sepsis type: sepsis due to unspecified organism Qualified Code(s): A41.9 - Sepsis, unspecified organism Code(s): A41.9 - Sepsis, unspecified organism Status: Acute Assessment and Plan: Sepsis based on criteria of fever, tachycardia, leukocytosis and in the presence of acute left lower extremity cellulitis.? Blood cultures NGTD Patient was rehydrated with IV fluids in the ed Fluids DC, tolerating PO intake Continue antibiotic therapy with cefepime, vanc and Flagyl. Leukocytosis resolved and patient is afebrile since 05/03 (2) Cellulitis of left leg without foot: Code(s): L03.116 - Cellulitis of left lower limb Status: Acute Assessment and Plan: presented with erythematous, edematous, warm left calf. Continue antibiotic therapy with cefepime, Flagyl, and vancomycin as above Supportive care. Analgesics available as needed Elevate the extremity Outlined area with marker. appears to be less, and nothing on the calf Venous Doppler of left lower extremity negative for DVT 40 mg IV Lasix x1 hold for now CRP with downward trend to 15.5 today (3) Lactic acidosis: Code(s): E87.20 - Acidosis, unspecified Status: Resolved Assessment and Plan: Resolved with IV fluid rehydration (4) Type 2 diabetes mellitus with hyperglycemia, with long-term current use of insulin: Code(s): E11.65 - Type 2 diabetes mellitus with hyperglycemia; Z79.4 - FDC (current) use of insulin Status: Acute Assessment and Plan: A1c is 7.9 Glucose stable ranging from 120-150 Continue with Accu-Cheks, sliding scale insulin, and hypoglycemic protocol Continue Lantus 16 units q.h.s. ISS Continue home Januvia Monitor glucose trends and adjust as needed (5) CKD (chronic kidney disease) stage 3, GFR 30-59 ml/min: Qualifiers: Chronic kidney disease stage 3 subtype: unspecified whether 3a or 3b Qualified Code(s): N18.30 - Chronic kidney disease, stage 3 unspecified Code(s): N18.30 - Chronic kidney disease, stage 3 unspecified Status: Chronic Assessment and Plan: Renal function is consistent with baseline Current Cr 1.10 monitor BMP (6) Diabetic ulcer of left foot: Code(s): E11.621 - Type 2 diabetes mellitus with foot ulcer; L97.529 - Non-pressure chronic ulcer of other part of left foot with unspecified severity Status: Chronic Assessment and Plan: Unchanged, no acute issues. Patient [facility] Continue with daily dressing changes, packing and ointment per patient's home wound care regimen Appreciate wound care evaluation Time Spent With Patient Time with patient: Greater than 35 minutes Subjective Date/time seen: 05/08/22 09:45 Interval history: 05/08/22944 He was up walking around when I went into see him. The swelling appears to be better, at least it is retracting from the outline. He is stating that he is having some discomfort with standing and walking. He denies any current pain. Assessment showed swelling, but the warmth was not present. He is also complaining of abdominal comfort. He stated that it has been a while since he has had a BM. Add a bowel regimen to the mix. He denies any chest pain, shortness of breath, nausea, vomiting, diarrhea, fevers, sweats, and chills. He did state that he was a bit nauseous with one of the medications but it has subsided. 05/07/2022 1559 Manjeet Vinson is a 66-year-old male with a history of type 2 diabetes mellitus, CKD, B12 deficiency, hypertension, hyperlipidemia, Charcot foot,? 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 and recent admission 1 month ago for left foot diabetic ulc
--- NOTE | 2022-05-08 09:45 | P.PNIM_ITS ---
Progress Note: A&P Assessment and Plan (1) Sepsis: Qualifiers: Sepsis acute organ dysfunction status: without acute organ dysfunction Sepsis type: sepsis due to unspecified organism Qualified Code(s): A41.9 - S epsis, unspecified organism Code(s): A41.9 - Sepsis, unspecified organism Status: Acute Assessment and Plan: * Sepsis based on criteria of fever, tachycardia, leukocytosis and in the presence of acute left lower extremity cellulitis.? * Blood cultures NGTD * Patient was rehydrated with IV fluids in the ed * Fluids DC, tolerating PO intake * Continue antibiotic therapy with cefepime, vanc and Flagyl. * Leukocytosis resolved and patient is afebrile since 05/03 (2) Cellulitis of left leg without foot: Code(s): L03.116 - Cellulitis of left lower limb Status: Acute Assessment and Plan: * presented with erythematous, edematous, warm left calf. * Continue antibiotic therapy with cefepime, Flagyl, and vancomycin as above * Supportive care. Analgesics available as needed * Elevate the extremity * Outlined area with marker. appears to be less, and nothing on the calf * Venous Doppler of left lower extremity negative for DVT * 40 mg IV Lasix x1 hold for now * CRP with downward trend to 15.5 today (3) Lactic acidosis: Code(s): E87.20 - Acidosis, unspecified Status: Resolved Assessment and Plan: Resolved with IV fluid rehydration (4) Type 2 diabetes mellitus with hyperglycemia, with long-term current use of insulin: Code(s): E11.65 - Type 2 diabetes mellitus with hyperglycemia; Z79.4 - care home (current) use of insulin Status: Acute Assessment and Plan: * A1c is 7.9 * Glucose stable ranging from 120-150 * Continue with Accu-Cheks, sliding scale insulin, and hypoglycemic protocol * Continue Lantus 16 units q.h.s. * ISS * Continue home Januvia * Monitor glucose trends and adjust as needed (5) CKD (chronic kidney disease) stage 3, GFR 30-59 ml/min: Qualifiers: Chronic kidney disease stage 3 subtype: unspecified whether 3a or 3b Qualified Code(s): N18.30 - Chronic kidney disease, stage 3 unspecified Code(s): N18.30 - Chronic kidney disease, stage 3 unspecified Status: Chronic Assessment and Plan: * Renal function is consistent with baseline * Current Cr 1.10 * monitor BMP (6) Diabetic ulcer of left foot: Code(s): E11.621 - Type 2 diabetes mellitus with foot ulcer; L97.529 - Non-pressure chronic ulcer of other part of left foot with unspecified severity Status: Chronic Assessment and Plan: * Unchanged, no acute issues. Patient follows with Podiatry and [facility] * Continue with daily dressing changes, packing and ointment per patient's home wound care regimen * Appreciate wound care evaluation Time Spent With Patient Time with patient: Greater than 35 minutes Subjective Date/time seen: 05/08/22 09:45 Interval history: 05/08/22944 He was up walking around when I went into see him. The swelling appears to be better, at least it is retracting from the outline. He is stating that he is having some discomfort with standing and walking. He denies any current pain. Assessment showed swelling, but the warmth was not present. He is also complaining of abdominal comfort. He stated that it has been a while since he has had a BM. Add a bowel regimen to the mix. He denies any chest pain, shor
[2022-05-08] MEDS: polyethylene glycoL 3350 17 GM POWD.PACK PO (10:52)
[2022-05-08] MEDS: SENNA/DOCUSATE SODIUM TABLET 1 TAB PO (10:52)
[2022-05-08 11:55] LABS: Glucose Point of Care 111 mg/dl (65-105)
[2022-05-08 14:00] VITALS: BP 121/59; PULSE 71; RESP 18; TEMP 36.9; O2SAT 95
--- NOTE | 2022-05-08 14:03 | PC.NURSE ---
On 05/08/22, the student, [Nohemi Orellana], provided care and completed [facility] documentation on this patient. I have reviewed the student's documentation and agree with the findings.
[2022-05-08 16:53] LABS: Glucose Point of Care 129 mg/dl (65-105)
[2022-05-08 21:10] LABS: Glucose Point of Care 101 mg/dl (65-105)
[2022-05-08 21:28] VITALS: BP 109/63; PULSE 68; RESP 18; TEMP 37; O2SAT 93
[2022-05-09 05:25] VITALS: BP 133/64; PULSE 71; RESP 18; TEMP 36.7; O2SAT 97
[2022-05-09 06:02] LABS: Alanine Aminotransferase 24 U/L (6-50); Albumin Level 3.1 g/dL (3.5-5.1); Alkaline Phosphatase 61 U/L (38-126); Anion Gap 4 mmol/L (8-16); Aspartate Amino Transferase 38 U/L (17-59); Basophils Absolute Auto 0.1 K/mm3 (0.0-0.1); Basophils Percent Auto 0.8 % (0.2-1.2); Bilirubin,Total 0.4 mg/dL (0.2-1.3); Blood Urea Nitrogen 16 mg/dL (9-20); Calcium 8.4 mg/dL (8.4-10.2); Carbon Dioxide 28 mmol/L (22-30); Chloride 101 mmol/L (98-107); Eosinophils Absolute Auto 0.2 K/mm3 (0-0.3); Eosinophils Percent Auto 2.7 % (0-4.4); Estimated CRCL calculation 63 ml/min; Estimated Glomerular Filt Rate > 60; Glucose 150 mg/dL (65-110); Hematocrit 33.7 % (42.0-52.0); Hemoglobin 10.8 g/dL (14.0-18.0); Immature Granulocyte Absolute 0.35 K/mm3 (0.00-0.031); Immature Granulocyte Percent A 4.4 % (0-0.5); Lymphocytes Absolute Auto 1.15 K/mm3 (0.9-3.2); Lymphocytes Percent Auto 14.5 % (18.3-44.2); Mean Corpuscular Hemoglobin 28.5 pg (26-34); Mean Corpuscular Volume 88.9 fl (80-100); Mean Platelet Volume 10.2 fl (7.4-10.4); Monocytes Absolute Auto 0.9 K/mm3 (0.1-0.6); Monocytes Percent Auto 11.1 % (2.6-8.5); Neutrophils Absolute Auto 5.3 K/mm3 (1.3-6.7); Neutrophils Percent Auto 66.5 % (45.5-73.1); Platelet Count Result 223 k/mm3 (150-375); Potassium 3.5 mmol/L (3.4-5.0); Red Blood Count 3.79 M/mm3 (4.6-6.20); Red Cell Distribution Width 15.5 % (11.5-14.5); Sodium 133 mmol/L (137-145); White Blood Count 7.9 K/mm3 (4.5-10.0)
--- NOTE | 2022-05-09 07:30 | PM.IMPN ---
Progress Note: A&P Assessment and Plan (1) Sepsis: Qualifiers: Sepsis acute organ dysfunction status: without acute organ dysfunction Sepsis type: sepsis due to unspecified organism Qualified Code(s): A41.9 - Sepsis, unspecified organism Code(s): A41.9 - Sepsis, unspecified organism Status: Acute Assessment and Plan: Sepsis based on criteria of fever, tachycardia, leukocytosis and in the presence of acute left lower extremity cellulitis.? Blood cultures no growth Patient was rehydrated with IV fluids in the ed Fluids DC, tolerating PO intake Continue antibiotic therapy with cefepime, vanc Leukocytosis resolved and patient is afebrile since 05/03 Resolved (2) Cellulitis of left leg without foot: Code(s): L03.116 - Cellulitis of left lower limb Status: Acute Assessment and Plan: presented with erythematous, edematous, warm left calf. Continue antibiotic therapy with cefepime, vancomycin as above Consider changing antibiotics to bactrim, due to no notable improvements Supportive care. Analgesics available as needed Elevate the extremity Outlined area with marker. appears worsened today, no notable improvement, swelling and redness is worse today Venous Doppler of left lower extremity negative for DVT 40 mg IV Lasix x1 hold for now CRP continues to trend down at 13.4 today, continue to trend Will reassess with wound care today, consider aakash wraps to help reduce edema (3) Lactic acidosis: Code(s): E87.20 - Acidosis, unspecified Status: Resolved Assessment and Plan: Resolved with IV fluid rehydration (4) Type 2 diabetes mellitus with hyperglycemia, with long-term current use of insulin: Code(s): E11.65 - Type 2 diabetes mellitus with hyperglycemia; Z79.4 - cartridge loader (current) use of insulin Status: Acute Assessment and Plan: A1c is 7.9 Glucose stable ranging from 120-150 Continue with Accu-Cheks, sliding scale insulin, and hypoglycemic protocol Continue Lantus 16 units q.h.s. ISS Continue home Januvia Monitor glucose trends and adjust as needed (5) CKD (chronic kidney disease) stage 3, GFR 30-59 ml/min: Qualifiers: Chronic kidney disease stage 3 subtype: unspecified whether 3a or 3b Qualified Code(s): N18.30 - Chronic kidney disease, stage 3 unspecified Code(s): N18.30 - Chronic kidney disease, stage 3 unspecified Status: Chronic Assessment and Plan: Renal function is consistent with baseline Current Cr 1.20 trend labs Stable avoid nephrotoxic medications (6) Diabetic ulcer of left foot: Code(s): E11.621 - Type 2 diabetes mellitus with foot ulcer; L97.529 - Non-pressure chronic ulcer of other part of left foot with unspecified severity Status: Chronic Assessment and Plan: Unchanged, no acute issues. Patient follows with Podiatry and [facility] Continue with daily dressing changes, packing and ointment per patient's home wound care regimen Appreciate wound care evaluation Should consider bedside debridment Time Spent With Patient Time: 17 minutes for IV restart Time with patient: Greater than 35 minutes Subjective Date/time seen: 05/09/22 07:30 Interval history: 05/09/22 0730 patient was lying in bed and just returned from the bathroom. Patient stated that he is still having some discomfort. Swelling and redness do not look any better today in fact look a bit worse as the redness has worsened and the warmth is back. He denies having a BM still is constipated. He denies any chest pain, shortness a breath, nausea, vomiting, diarrhea, weakness or fatigue. Will have wound care look at the wounds again with me and explore ideas of Aakash wraps/ bedside debridement. 05/08/22 0945 He was up walking around when I went into see him. The swelling appears to be better, at least it is r
--- NOTE | 2022-05-09 07:30 | P.PNIM_ITS ---
Progress Note: A&P Assessment and Plan (1) Sepsis: Qualifiers: Sepsis acute organ dysfunction status: without acute organ dysfunction Sepsis type: sepsis due to unspecified organism Qualified Code(s): A41.9 - S epsis, unspecified organism Code(s): A41.9 - Sepsis, unspecified organism Status: Acute Assessment and Plan: * Sepsis based on criteria of fever, tachycardia, leukocytosis and in the presence of acute left lower extremity cellulitis.? * Blood cultures no growth * Patient was rehydrated with IV fluids in the ed * Fluids DC, tolerating PO intake * Continue antibiotic therapy with cefepime, vanc * Leukocytosis resolved and patient is afebrile since 05/03 * Resolved (2) Cellulitis of left leg without foot: Code(s): L03.116 - Cellulitis of left lower limb Status: Acute Assessment and Plan: * presented with erythematous, edematous, warm left calf. * Continue antibiotic therapy with cefepime, vancomycin as above * Consider changing antibiotics to bactrim, due to no notable improvements * Supportive care. Analgesics available as needed * Elevate the extremity * Outlined area with marker. appears worsened today, no notable improvement, swelling and redness is worse today * Venous Doppler of left lower extremity negative for DVT * 40 mg IV Lasix x1 hold for now * CRP continues to trend down at 13.4 today, continue to trend * Will reassess with wound care today, consider kurt wraps to help reduce edema (3) Lactic acidosis: Code(s): E87.20 - Acidosis, unspecified Status: Resolved Assessment and Plan: Resolved with IV fluid rehydration (4) Type 2 diabetes mellitus with hyperglycemia, with long-term current use of insulin: Code(s): E11.65 - Type 2 diabetes mellitus with hyperglycemia; Z79.4 - half-way (current) use of insulin Status: Acute Assessment and Plan: * A1c is 7.9 * Glucose stable ranging from 120-150 * Continue with Accu-Cheks, sliding scale insulin, and hypoglycemic protocol * Continue Lantus 16 units q.h.s. * ISS * Continue home Januvia * Monitor glucose trends and adjust as needed (5) CKD (chronic kidney disease) stage 3, GFR 30-59 ml/min: Qualifiers: Chronic kidney disease stage 3 subtype: unspecified whether 3a or 3b Qualified Code(s): N18.30 - Chronic kidney disease, stage 3 unspecified Code(s): N18.30 - Chronic kidney disease, stage 3 unspecified Status: Chronic Assessment and Plan: * Renal function is consistent with baseline * Current Cr 1.20 * trend labs * Stable * avoid nephrotoxic medications (6) Diabetic ulcer of left foot: Code(s): E11.621 - Type 2 diabetes mellitus with foot ulcer; L97.529 - Non-pressure chronic ulcer of other part of left foot with unspecified severity Status: Chronic Assessment and Plan: * Unchanged, no acute issues. Patient follows with Podiatry and [facility] * Continue with daily dressing changes, packing and ointment per patient's home wound care regimen * Appreciate wound care evaluation * Should consider bedside debridment Time Spent With Patient Time: 17 minutes for IV restart Time with patient: Greater than 35 minutes Subjective Date/time seen: 05/09/22 07:30 Interval history: 05/09/22 0730 patient was lying in bed and just returned from the bathroom. Patient stated that he is still h
[2022-05-09 08:42] LABS: CRP 13.4 mg/dL (<1.0)
[2022-05-09 09:13] LABS: Glucose Point of Care 118 mg/dl (65-105)
[2022-05-09] MEDS: metFORMIN HCL 500 MG TABLET 1000 MG PO ×2 (09:24→17:12)
[2022-05-09] MEDS: SENNA/DOCUSATE SODIUM TABLET 1 TAB PO (09:25)
[2022-05-09] MEDS: EMPAGLIFLOZIN 10 MG TABLET PO (09:25)
[2022-05-09] MEDS: hydroCHLOROthiazide 12.5 MG CAPSULE PO (09:25)
[2022-05-09] MEDS: lisinopriL 20 MG TABLET PO (09:26)
[2022-05-09] MEDS: ATORVASTATIN 10 MG TABLET PO (09:26)
[2022-05-09] MEDS: GABAPENTIN 100 MG CAPSULE 200 MG PO ×2 (09:26→17:12)
[2022-05-09] MEDS: ENOXAPARIN 40 MG/0.4 ML SYRINGE SUB-Q (09:27)
[2022-05-09] MEDS: amLODIPine BESYLATE 5 MG TABLET PO (09:27)
[2022-05-09] MEDS: ASPIRIN 81 MG CHEWABLE TABLET PO (09:27)
[2022-05-09] MEDS: CHOLECALCIFEROL 1,000 UNITS TABLET 2000 UNITS PO (09:27)
[2022-05-09] MEDS: INSULIN GLARGINE (*BKC) 100 UNITS/ML 16 UNITS SUB-Q (09:28)
[2022-05-09] MEDS: polyethylene glycoL 3350 17 GM POWD.PACK PO (09:32)
[2022-05-09 09:50] VITALS: O2SAT 99
[2022-05-09 11:45] LABS: Glucose Point of Care 163 mg/dl (65-105)
[2022-05-09] MEDS: SILVERGEL (ELTA) 45 ML 1 APPLIC TOPICAL (11:49)
[2022-05-09 14:16] VITALS: BP 120/62; PULSE 67; RESP 18; TEMP 36.3; O2SAT 94
[2022-05-09 17:21] LABS: Glucose Point of Care 97 mg/dl (65-105)
[2022-05-09] MEDS: GENTAMICIN SULFATE 0.1% OINT 15 GM TUBE 1 APPLIC TOPICAL (17:45)
[2022-05-09] MEDS: SULFAMETHOXAZOLE/TRIMETHOPRIM 800/160 MG DS TABLET 2 TAB PO (19:49)
[2022-05-09 19:50] VITALS: PULSE 69; RESP 17; O2SAT 98
[2022-05-09 20:06] LABS: Glucose Point of Care 115 mg/dl (65-105)
[2022-05-09 21:32] VITALS: BP 114/60; PULSE 69; RESP 17; TEMP 37; O2SAT 98
[2022-05-10 05:17] VITALS: BP 100/57; PULSE 65; RESP 17; TEMP 36.9; O2SAT 91
[2022-05-10 06:13] LABS: Alanine Aminotransferase 26 U/L (6-50); Albumin Level 3.2 g/dL (3.5-5.1); Alkaline Phosphatase 56 U/L (38-126); Anion Gap 6 mmol/L (8-16); Aspartate Amino Transferase 42 U/L (17-59); Bilirubin,Total 0.4 mg/dL (0.2-1.3); Blood Urea Nitrogen 15 mg/dL (9-20); CRP 8.2 mg/dL (<1.0); Calcium 8.8 mg/dL (8.4-10.2); Carbon Dioxide 27 mmol/L (22-30); Chloride 99 mmol/L (98-107); Estimated CRCL calculation 63 ml/min; Estimated Glomerular Filt Rate > 60; Glucose 105 mg/dL (65-110); Magnesium 2.1 mg/dL (1.6-2.3); Potassium 3.6 mmol/L (3.4-5.0); Sodium 132 mmol/L (137-145)
[2022-05-10 06:17] LABS: Basophils Absolute Auto 0.1 K/mm3 (0.0-0.1); Basophils Percent Auto 0.7 % (0.2-1.2); Eosinophils Absolute Auto 0.2 K/mm3 (0-0.3); Eosinophils Percent Auto 2.1 % (0-4.4); Hematocrit 33.9 % (42.0-52.0); Hemoglobin 10.8 g/dL (14.0-18.0); Immature Granulocyte Absolute 0.36 K/mm3 (0.00-0.031); Immature Granulocyte Percent A 5.1 % (0-0.5); Lymphocytes Absolute Auto 1.06 K/mm3 (0.9-3.2); Mean Corpuscular HGB Conc 31.9 g/dl (32-36); Mean Corpuscular Hemoglobin 28.5 pg (26-34); Mean Corpuscular Volume 89.4 fl (80-100); Mean Platelet Volume 10.1 fl (7.4-10.4); Monocytes Absolute Auto 0.7 K/mm3 (0.1-0.6); Monocytes Percent Auto 9.5 % (2.6-8.5); Neutrophils Absolute Auto 4.8 K/mm3 (1.3-6.7); Neutrophils Percent Auto 67.6 % (45.5-73.1); Platelet Count Result 265 k/mm3 (150-375); Red Blood Count 3.79 M/mm3 (4.6-6.20); Red Cell Distribution Width 15.7 % (11.5-14.5); White Blood Count 7.1 K/mm3 (4.5-10.0)
[2022-05-10 08:20] LABS: Glucose Point of Care 113 mg/dl (65-105)
[2022-05-10] MEDS: amLODIPine BESYLATE 5 MG TABLET PO (08:47)
[2022-05-10] MEDS: CHOLECALCIFEROL 1,000 UNITS TABLET 2000 UNITS PO (08:47)
[2022-05-10] MEDS: EMPAGLIFLOZIN 10 MG TABLET PO (08:47)
[2022-05-10] MEDS: ASPIRIN 81 MG CHEWABLE TABLET PO (08:47)
[2022-05-10] MEDS: ENOXAPARIN 40 MG/0.4 ML SYRINGE SUB-Q (08:47)
[2022-05-10] MEDS: ATORVASTATIN 10 MG TABLET PO (08:47)
[2022-05-10] MEDS: lisinopriL 20 MG TABLET PO (08:48)
[2022-05-10] MEDS: SENNA/DOCUSATE SODIUM TABLET 1 TAB PO (08:48)
[2022-05-10] MEDS: metFORMIN HCL 500 MG TABLET 1000 MG PO ×2 (08:48→17:10)
[2022-05-10] MEDS: polyethylene glycoL 3350 17 GM POWD.PACK PO (08:48)
[2022-05-10] MEDS: SULFAMETHOXAZOLE/TRIMETHOPRIM 800/160 MG DS TABLET 2 TAB PO ×2 (08:48→21:56)
[2022-05-10] MEDS: GABAPENTIN 100 MG CAPSULE 200 MG PO ×2 (08:48→17:10)
[2022-05-10] MEDS: hydroCHLOROthiazide 12.5 MG CAPSULE PO (08:51)
[2022-05-10] MEDS: SILVERGEL (ELTA) 45 ML 1 APPLIC TOPICAL (08:52)
[2022-05-10] MEDS: GENTAMICIN SULFATE 0.1% OINT 15 GM TUBE 1 APPLIC TOPICAL (08:52)
[2022-05-10] MEDS: INSULIN GLARGINE (*BKC) 100 UNITS/ML 16 UNITS SUB-Q (08:53)
--- NOTE | 2022-05-10 09:45 | PM.IMPN ---
Progress Note: A&P Assessment and Plan (1) Sepsis: Qualifiers: Sepsis type: sepsis due to unspecified organism Sepsis acute organ dysfunction status: without acute organ dysfunction Qualified Code(s): A41.9 - Sepsis, unspecified organism Code(s): A41.9 - Sepsis, unspecified organism Status: Acute Assessment and Plan: Sepsis based on criteria of fever, tachycardia, leukocytosis and in the presence of acute left lower extremity cellulitis.? Blood cultures no growth Patient was rehydrated with IV fluids in the ed Fluids DC, tolerating PO intake Change antibiotics to bactrim Leukocytosis resolved and patient is afebrile since 05/03 Resolved (2) Cellulitis of left leg without foot: Code(s): L03.116 - Cellulitis of left lower limb Status: Acute Assessment and Plan: presented with erythematous, edematous, warm left calf. Continue antibiotic therapy with cefepime, vancomycin as above Changing antibiotics to bactrim, in collaboration with pharm ID Supportive care. Analgesics available as needed Elevate the extremity Outlined area with marker. appears to be improved today, redness is better Venous Doppler of left lower extremity negative for DVT 40 mg IV Lasix x1 hold for now CRP continues to trend down at 8.2 today, continue to trend Will reassess with wound care today, consider kurt wraps to help reduce edema (3) Lactic acidosis: Code(s): E87.20 - Acidosis, unspecified Status: Resolved Assessment and Plan: Resolved with IV fluid rehydration (4) Type 2 diabetes mellitus with hyperglycemia, with long-term current use of insulin: Code(s): E11.65 - Type 2 diabetes mellitus with hyperglycemia; Z79.4 - extermination inspector (current) use of insulin Status: Acute Assessment and Plan: A1c is 7.9 Glucose stable ranging from 120-150 Continue with Accu-Cheks, sliding scale insulin, and hypoglycemic protocol Continue Lantus 16 units q.h.s. ISS Continue home Januvia Monitor glucose trends and adjust as needed (5) CKD (chronic kidney disease) stage 3, GFR 30-59 ml/min: Qualifiers: Chronic kidney disease stage 3 subtype: unspecified whether 3a or 3b Qualified Code(s): N18.30 - Chronic kidney disease, stage 3 unspecified Code(s): N18.30 - Chronic kidney disease, stage 3 unspecified Status: Chronic Assessment and Plan: Renal function is consistent with baseline Current Cr 1.20 trend labs Stable avoid nephrotoxic medications (6) Diabetic ulcer of left foot: Code(s): E11.621 - Type 2 diabetes mellitus with foot ulcer; L97.529 - Non-pressure chronic ulcer of other part of left foot with unspecified severity Status: Chronic Assessment and Plan: Unchanged, no acute issues. Patient [facility] with [facility] and [facility] Continue with daily dressing changes, packing and ointment per patient's home wound care regimen Appreciate wound care evaluation Should consider bedside debridment Plan Constipation added suppository Time Spent With Patient Time with patient: Greater than 35 minutes Subjective Date/time seen: 05/10/22944 Interval history: 05/10/22944 patient seems to be doing okay today. His leg also seems to be less red and less swollen today as well. His biggest complaint is that he has not had a bowel movement and he is very uncomfortable. He denies any chest pain, shortness a breath, nausea,, diarrhea weakness or fatigue. He is still having some pain specially when he stands on his foot. 05/09/22729 patient was lying in bed and just returned from the bathroom. Patient stated that he is still having some discomfort. Swelling and redness do not look any better today in fact look a bit worse as the redness has worsened and the warmth is back. He denies having a BM still is constipated. He denies any marleni
--- NOTE | 2022-05-10 09:45 | P.PNIM_ITS ---
Progress Note: A&P Assessment and Plan (1) Sepsis: Qualifiers: Sepsis type: sepsis due to unspecified organism Sepsis acute organ dysfunction status: without acute organ dysfunction Qualified Code(s): A41.9 - Sepsis, unspecified organism Code(s): A41.9 - Sepsis, unspecified organism Status: Acute Assessment and Plan: * Sepsis based on criteria of fever, tachycardia, leukocytosis and in the presence of acute left lower extremity cellulitis.? * Blood cultures no growth * Patient was rehydrated with IV fluids in the ed * Fluids DC, tolerating PO intake * Change antibiotics to bactrim * Leukocytosis resolved and patient is afebrile since 05/03 * Resolved (2) Cellulitis of left leg without foot: Code(s): L03.116 - Cellulitis of left lower limb Status: Acute Assessment and Plan: * presented with erythematous, edematous, warm left calf. * Continue antibiotic therapy with cefepime, vancomycin as above * Changing antibiotics to bactrim, in collaboration with pharm ID * Supportive care. Analgesics available as needed * Elevate the extremity * Outlined area with marker. appears to be improved today, redness is better * Venous Doppler of left lower extremity negative for DVT * 40 mg IV Lasix x1 hold for now * CRP continues to trend down at 8.2 today, continue to trend * Will reassess with wound care today, consider kurt wraps to help reduce edema (3) Lactic acidosis: Code(s): E87.20 - Acidosis, unspecified Status: Resolved Assessment and Plan: Resolved with IV fluid rehydration (4) Type 2 diabetes mellitus with hyperglycemia, with long-term current use of insulin: Code(s): E11.65 - Type 2 diabetes mellitus with hyperglycemia; Z79.4 - half-way (current) use of insulin Status: Acute Assessment and Plan: * A1c is 7.9 * Glucose stable ranging from 120-150 * Continue with Accu-Cheks, sliding scale insulin, and hypoglycemic protocol * Continue Lantus 16 units q.h.s. * ISS * Continue home Januvia * Monitor glucose trends and adjust as needed (5) CKD (chronic kidney disease) stage 3, GFR 30-59 ml/min: Qualifiers: Chronic kidney disease stage 3 subtype: unspecified whether 3a or 3b Qualified Code(s): N18.30 - Chronic kidney disease, stage 3 unspecified Code(s): N18.30 - Chronic kidney disease, stage 3 unspecified Status: Chronic Assessment and Plan: * Renal function is consistent with baseline * Current Cr 1.20 * trend labs * Stable * avoid nephrotoxic medications (6) Diabetic ulcer of left foot: Code(s): E11.621 - Type 2 diabetes mellitus with foot ulcer; L97.529 - Non-pressure chronic ulcer of other part of left foot with unspecified severity Status: Chronic Assessment and Plan: * Unchanged, no acute issues. [facility] * Continue with daily dressing changes, packing and ointment per patient's home wound care regimen * Appreciate wound care evaluation * Should consider bedside debridment Plan Constipation added suppository Time Spent With Patient Time with patient: Greater than 35 minutes Subjective Date/time seen: 05/10/22944 Interval history: 05/10/22944 patient seems to be doing okay today. His leg also seems to be less red and less swollen today as well. His biggest complaint is that he has not had a bowel move
[2022-05-10] MEDS: BISACODYL 10 MG SUPPOSITORY RECTAL (10:02)
[2022-05-10 11:43] LABS: Glucose Point of Care 159 mg/dl (65-105)
[2022-05-10 14:00] VITALS: BP 112/58; PULSE 70; RESP 18; TEMP 36.9; O2SAT 95
[2022-05-10 16:59] LABS: Glucose Point of Care 147 mg/dl (65-105)
[2022-05-10 20:28] VITALS: BP 109/62; PULSE 71; RESP 20; TEMP 36.4; O2SAT 97
[2022-05-10 22:00] LABS: Glucose Point of Care 114 mg/dl (65-105)
[2022-05-11 05:33] VITALS: BP 110/54; PULSE 62; RESP 20; TEMP 36.4; O2SAT 93
[2022-05-11 06:17] LABS: Basophils Absolute Auto 0.1 K/mm3 (0.0-0.1); Eosinophils Absolute Auto 0.2 K/mm3 (0-0.3); Eosinophils Percent Auto 2.3 % (0-4.4); Hematocrit 33.6 % (42.0-52.0); Hemoglobin 10.9 g/dL (14.0-18.0); Immature Granulocyte Absolute 0.34 K/mm3 (0.00-0.031); Immature Granulocyte Percent A 4.8 % (0-0.5); Lymphocytes Absolute Auto 1.16 K/mm3 (0.9-3.2); Lymphocytes Percent Auto 16.4 % (18.3-44.2); Mean Corpuscular HGB Conc 32.4 g/dl (32-36); Mean Corpuscular Hemoglobin 28.8 pg (26-34); Mean Corpuscular Volume 88.9 fl (80-100); Mean Platelet Volume 9.9 fl (7.4-10.4); Monocytes Absolute Auto 0.6 K/mm3 (0.1-0.6); Monocytes Percent Auto 8.5 % (2.6-8.5); Neutrophils Absolute Auto 4.7 K/mm3 (1.3-6.7); Platelet Count Result 271 k/mm3 (150-375); Red Blood Count 3.78 M/mm3 (4.6-6.20); Red Cell Distribution Width 15.6 % (11.5-14.5); White Blood Count 7.1 K/mm3 (4.5-10.0)
[2022-05-11 06:29] LABS: Alanine Aminotransferase 27 U/L (6-50); Albumin Level 3.2 g/dL (3.5-5.1); Alkaline Phosphatase 56 U/L (38-126); Anion Gap 6 mmol/L (8-16); Aspartate Amino Transferase 42 U/L (17-59); Bilirubin,Total 0.4 mg/dL (0.2-1.3); Blood Urea Nitrogen 13 mg/dL (9-20); Calcium 8.4 mg/dL (8.4-10.2); Carbon Dioxide 26 mmol/L (22-30); Chloride 100 mmol/L (98-107); Estimated CRCL calculation 54 ml/min; Estimated Glomerular Filt Rate 51; Glucose 106 mg/dL (65-110); Potassium 3.6 mmol/L (3.4-5.0); Sodium 132 mmol/L (137-145)
[2022-05-11 08:02] LABS: Glucose Point of Care 97 mg/dl (65-105)
[2022-05-11] MEDS: INSULIN GLARGINE (*BKC) 100 UNITS/ML 16 UNITS SUB-Q (08:45)
[2022-05-11] MEDS: GABAPENTIN 100 MG CAPSULE 200 MG PO (08:53)
[2022-05-11] MEDS: SULFAMETHOXAZOLE/TRIMETHOPRIM 800/160 MG DS TABLET 2 TAB PO (08:53)
[2022-05-11] MEDS: amLODIPine BESYLATE 5 MG TABLET PO (08:53)
[2022-05-11] MEDS: ASPIRIN 81 MG CHEWABLE TABLET PO (08:54)
[2022-05-11] MEDS: CHOLECALCIFEROL 1,000 UNITS TABLET 2000 UNITS PO (08:54)
[2022-05-11] MEDS: EMPAGLIFLOZIN 10 MG TABLET PO (08:54)
[2022-05-11] MEDS: ATORVASTATIN 10 MG TABLET PO (08:54)
[2022-05-11] MEDS: lisinopriL 20 MG TABLET PO (08:54)
[2022-05-11] MEDS: hydroCHLOROthiazide 12.5 MG CAPSULE PO (08:54)
[2022-05-11] MEDS: metFORMIN HCL 500 MG TABLET 1000 MG PO (08:54)
[2022-05-11] MEDS: GENTAMICIN SULFATE 0.1% OINT 15 GM TUBE 1 APPLIC TOPICAL (08:55)
[2022-05-11] MEDS: SILVERGEL (ELTA) 45 ML 1 APPLIC TOPICAL (08:55)
[2022-05-11] MEDS: ENOXAPARIN 40 MG/0.4 ML SYRINGE SUB-Q (08:55)
--- NOTE | 2022-05-11 10:00 | PM.DS ---
DS: Admitting Diagnosis Discharge Date 05/11/22 1000 Admitting Diagnosis Cellulitis of the lower extremity with sepsis DS: Discharge Diagnosis Discharge Diagnosis (1) Sepsis: Qualifiers: Sepsis acute organ dysfunction status: without acute organ dysfunction Sepsis type: sepsis due to unspecified organism Qualified Code(s): A41.9 - Sepsis, unspecified organism Code(s): A41.9 - Sepsis, unspecified organism Status: Acute Assessment and Plan: Sepsis based on criteria of fever, tachycardia, leukocytosis and in the presence of acute left lower extremity cellulitis.? Blood cultures no growth Patient was rehydrated with IV fluids in the ed Fluids DC, tolerating PO intake Change antibiotics to bactrim Leukocytosis resolved and patient is afebrile since 05/03 Resolved (2) Cellulitis of left leg without foot: Code(s): L03.116 - Cellulitis of left lower limb Status: Acute Assessment and Plan: presented with erythematous, edematous, warm left calf. Continue antibiotic therapy with cefepime, vancomycin as above Changing antibiotics to bactrim, in collaboration with pharm ID Supportive care. Analgesics available as needed Elevate the extremity Outlined area with marker. appears to be improved today, redness is better Venous Doppler of left lower extremity negative for DVT 40 mg IV Lasix x1 hold for now CRP continues to trend down at 8.2 today, continue to trend Will reassess with wound care today, consider kurt wraps to help reduce edema (3) Lactic acidosis: Code(s): E87.20 - Acidosis, unspecified Status: Resolved Assessment and Plan: Resolved with IV fluid rehydration (4) Type 2 diabetes mellitus with hyperglycemia, with long-term current use of insulin: Code(s): E11.65 - Type 2 diabetes mellitus with hyperglycemia; Z79.4 - evaluation specialist (current) use of insulin Status: Acute Assessment and Plan: A1c is 7.9 Glucose stable ranging from 120-150 Continue with Accu-Cheks, sliding scale insulin, and hypoglycemic protocol Continue Lantus 16 units q.h.s. ISS Continue home Januvia Monitor glucose trends and adjust as needed (5) CKD (chronic kidney disease) stage 3, GFR 30-59 ml/min: Qualifiers: Chronic kidney disease stage 3 subtype: unspecified whether 3a or 3b Qualified Code(s): N18.30 - Chronic kidney disease, stage 3 unspecified Code(s): N18.30 - Chronic kidney disease, stage 3 unspecified Status: Chronic Assessment and Plan: Renal function is consistent with baseline Current Cr 1.40 trend labs Stable avoid nephrotoxic medications (6) Diabetic ulcer of left foot: Code(s): E11.621 - Type 2 diabetes mellitus with foot ulcer; L97.529 - Non-pressure chronic ulcer of other part of left foot with unspecified severity Status: Chronic Assessment and Plan: Unchanged, no acute issues. Patient follows with Podiatry and [facility] Continue with daily dressing changes, packing and ointment per patient's home wound care regimen Appreciate wound care evaluation Should consider bedside debridment Plan Constipation added suppository DS: Summary Hospital Course Hospital Course: Male with a past medical history of diabetes, hypertension, hyperlipidemia presented to the ED with complaints fever and lower leg swelling with redness. Upon arrival patient was to be septic and met sirs criteria. Blood cultures were taken however no growth today. Patient was started on IV antibiotics including vancomycin cefepime and Flagyl. Lactic acid was also noted to be elevated patient was given IV fluids. Wound Care was also consulted for a diabetic foot ulcer noted on the left under the great toe. Improvements were noted to be very minimal throughout the course of treatment. Antibiotics were changed to Bactrim, which did show signi
--- NOTE | 2022-05-11 10:00 | P.DS_ITS ---
DS: Admitting Diagnosis Discharge Date 05/11/22 1000 Admitting Diagnosis Cellulitis of the lower extremity with sepsis DS: Discharge Diagnosis Discharge Diagnosis (1) Sepsis: Qualifiers: Sepsis acute organ dysfunction status: without acute organ dysfunction Sepsis type: sepsis due to unspecified organism Qualified Code(s): A41.9 - Sepsis, unspecified organism Code(s): A41.9 - Sepsis, unspecified organism Status: Acute Assessment and Plan: * Sepsis based on criteria of fever, tachycardia, leukocytosis and in the presence of acute left lower extremity cellulitis.? * Blood cultures no growth * Patient was rehydrated with IV fluids in the ed * Fluids DC, tolerating PO intake * Change antibiotics to bactrim * Leukocytosis resolved and patient is afebrile since 05/03 * Resolved (2) Cellulitis of left leg without foot: Code(s): L03.116 - Cellulitis of left lower limb Status: Acute Assessment and Plan: * presented with erythematous, edematous, warm left calf. * Continue antibiotic therapy with cefepime, vancomycin as above * Changing antibiotics to bactrim, in collaboration with pharm ID * Supportive care. Analgesics available as needed * Elevate the extremity * Outlined area with marker. appears to be improved today, redness is better * Venous Doppler of left lower extremity negative for DVT * 40 mg IV Lasix x1 hold for now * CRP continues to trend down at 8.2 today, continue to trend * Will reassess with wound care today, consider kurt wraps to help reduce edema (3) Lactic acidosis: Code(s): E87.20 - Acidosis, unspecified Status: Resolved Assessment and Plan: Resolved with IV fluid rehydration (4) Type 2 diabetes mellitus with hyperglycemia, with long-term current use of insulin: Code(s): E11.65 - Type 2 diabetes mellitus with hyperglycemia; Z79.4 - intermediate school teacher (current) use of insulin Status: Acute Assessment and Plan: * A1c is 7.9 * Glucose stable ranging from 120-150 * Continue with Accu-Cheks, sliding scale insulin, and hypoglycemic protocol * Continue Lantus 16 units q.h.s. * ISS * Continue home Januvia * Monitor glucose trends and adjust as needed (5) CKD (chronic kidney disease) stage 3, GFR 30-59 ml/min: Qualifiers: Chronic kidney disease stage 3 subtype: unspecified whether 3a or 3b Qualified Code(s): N18.30 - Chronic kidney disease, stage 3 unspecified Code(s): N18.30 - Chronic kidney disease, stage 3 unspecified Status: Chronic Assessment and Plan: * Renal function is consistent with baseline * Current Cr 1.40 * trend labs * Stable * avoid nephrotoxic medications (6) Diabetic ulcer of left foot: Code(s): E11.621 - Type 2 diabetes mellitus with foot ulcer; L97.529 - Non-pressure chronic ulcer of other part of left foot with unspecified severity Status: Chronic Assessment and Plan: * Unchanged, no acute issues. Patient follows with Podiatry and [facility] * Continue with daily dressing changes, packing and ointment per patient's home wound care regimen * Appreciate wound care evaluation * Should consider bedside debridment Plan Constipation added suppository DS: Summary Hospital Course Hospital Course: Male with a past medical history of diabetes, hypertension, hyperlipidemia presented to the ED with complaints fever and lower leg swelling
[2022-05-11 12:07] LABS: Glucose Point of Care 188 mg/dl (65-105)
== END 2022-05-11 15:12 | disposition home or self-care (01) | DRG 872 ==
LOC: ANHED 19:11 → ANH2MED 20:20
PROVIDERS: Physician Assistant; Student in an Organized Health Care Education/Training Program; Admitting Provider Internal Medicine; Emergency Provider General Practice; PCP Family Medicine; Visit Provider Nurse Practitioner
DX: A41.9 Sepsis, unspecified organism (principal); L03.116 Cellulitis of left lower limb; E87.20 Acidosis, unspecified; I12.9 Hypertensive chronic kidney disease with stage 1 through stage 4 chronic kidney disease, or unspecified chronic kidney disease; Z20.822 Contact with and (suspected) exposure to COVID-19; E11.22 Type 2 diabetes mellitus with diabetic chronic kidney disease; E11.621 Type 2 diabetes mellitus with foot ulcer; L97.529 Non-pressure chronic ulcer of other part of left foot with unspecified severity; E11.65 Type 2 diabetes mellitus with hyperglycemia; E11.42 Type 2 diabetes mellitus with diabetic polyneuropathy; E78.5 Hyperlipidemia, unspecified; E53.8 Deficiency of other specified B group vitamins; E55.9 Vitamin D deficiency, unspecified; E11.610 Type 2 diabetes mellitus with diabetic neuropathic arthropathy; N18.30 Chronic kidney disease, stage 3 unspecified; Z79.4 Long term (current) use of insulin; Z79.82 Long term (current) use of aspirin
CPT/HCPCS: 36415; 71045; 73590; 80053; 80202; 81001; 82803; 82948; 83036; 83605; 83735; 85025; 85610; 85730; 86140; 87040; 87636; 93005; 93971; 96361; 96365; 96366; 96367; 96372; 96375; 99285; A9270; G0378; J0131; J0692; J1650; J1815; J1940; J3370; J7030

== ENCOUNTER 2023-02-25 08:01 | Outpatient (CLI) | payer OTHER, SELFPAY ==
[2023-02-25 17:10] LABS: Alanine Aminotransferase 23 U/L (6-50); Albumin Level 3.8 g/dL (3.5-5.1); Alkaline Phosphatase 82 U/L (38-126); Anion Gap 10 mmol/L (8-16); Aspartate Amino Transferase 34 U/L (17-59); Bilirubin,Total 0.5 mg/dL (0.2-1.3); Blood Urea Nitrogen 19 mg/dL (9-20); Carbon Dioxide 23 mmol/L (22-30); Chloride 106 mmol/L (98-107); Estimated Glomerular Filt Rate 55; Glucose 148 mg/dL (65-110); Sodium 139 mmol/L (137-145)
== END 2023-02-25 08:02 | disposition home or self-care (01) ==
LOC: ANHGOSHLAB 08:02
PROVIDERS: PCP Family Medicine; Visit Provider Family Medicine
DX: E11.9 Type 2 diabetes mellitus without complications (principal); I10 Essential (primary) hypertension
CPT/HCPCS: 36415; 80053; 83036

== ENCOUNTER 2023-03-26 09:15 | Inpatient (IN) | payer OTHER, SELFPAY ==
--- NOTE | ~2023-03-26 | XR_ITS ---
Left foot Technique: AP, oblique, and lateral views were obtained. Clinical History: First metatarsal ulcer Findings: No acute fracture or dislocation is seen. There is advanced degenerative change at the tars ometatarsal joints and naviculocuneiform articulations. There is mild degenerative change at the firs t MTP joint. Possible chronic fracture of the dorsal aspect of the medial cuneiform. Plantar ulcer no varinder at the first MTP joint region. Impression: Advanced degenerative change of the midfoot articulations, as detailed above, with suspected chronic fracture of the dorsal aspect of the medial cuneiform. Findings could reflect developing Charcot foot . No definite evidence for osteomyelitis. Plantar ulcer at the first MTP joint region. Reviewed, dictated and finalized at location M. Impression: Advanced degenerative change of the midfoot articulations, as detailed above, w ith suspected chronic fracture of the dorsal aspect of the medial cuneiform. Fi ndings could reflect developing Charcot foot. No definite evidence for osteomyelitis. Plantar ulcer at the first MTP joint region.
--- NOTE | ~2023-03-26 | XR_ITS ---
XR chest 1V portable DATE: 03/26/2023 14:09 INDICATION: Cough. Covid. TECHNIQUE: Portable upright AP chest on 03/26/2023 at 1356 hours COMPARISON: 05/03/2022 portable AP chest FINDINGS: There is chronic elevation right diaphragm and likely chronic discoid atelectasis or scarri ng in the right lower lung, relatively stable in appearance since 05/03/2022. Normal heart size. No hilar or mediastinal enlargement. No pulmonary infiltrate or consolidation, pleural effusion or pulmonary vascular congestion or pneumo thorax. Diffuse idiopathic skeletal hyperostosis of the thoracic spine. IMPRESSION: Chronic elevation right diaphragm and probable chronic discoid atelectasis or scarring, r ight lower lung No active disease otherwise or significant change since 05/03/2022 Reviewed, dictated and finalized at location B. IMPRESSION: Chronic elevation right diaphragm and probable chronic discoid atel ectasis or scarring, right lower lung No active disease otherwise or significant change since 05/03/2022
--- NOTE | ~2023-03-26 | XR_ITS ---
XR tibia fibula LT 2V DATE: 03/26/2023 14:09 INDICATION: Cellulitis TECHNIQUE: AP and lateral portable views of the left lower leg COMPARISON: None FINDINGS: No radiopaque soft tissue foreign body or subcutaneous emphysema is noted. No fracture, dislocation, periosteal reaction or bone destruction of the tibia or fibula. Normal alignment and preservation of joint spaces at the knee and ankle. IMPRESSION: No significant bony abnormality Reviewed, dictated and finalized at location B.
[2023-03-26 10:23] VITALS: BP 120/64; PULSE 72; RESP 20; TEMP 36.4; O2SAT 99
[2023-03-26 12:09] VITALS: BP 138/74; PULSE 75; RESP 18; TEMP 36.4; O2SAT 96
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
[2023-03-26] MEDS: SODIUM CHLORIDE 0.9% IV 1,000 ML 999 ML IV CONT (13:47)
[2023-03-26] MEDS: CEFEPIME 2 GM/NS 50 ML 2 GM/50 ML BAG IVPB ×2 (13:47→20:20)
[2023-03-26] MEDS: metroNIDAZOLE 500 MG/ISO 100ML 500 MG/100 ML BAG 100 MG IVPB ×2 (13:48→20:21)
[2023-03-26 14:03] LABS: Basophils Percent Auto 0.5 % (0.2-1.2); Eosinophils Absolute Auto 0.1 K/mm3 (0-0.3); Hematocrit 43.4 % (42.0-52.0); Hemoglobin 13.6 g/dL (14.0-18.0); Immature Granulocyte Absolute 0.06 K/mm3 (0.00-0.031); Immature Granulocyte Percent A 0.8 % (0-0.5); Lymphocytes Absolute Auto 1.25 K/mm3 (0.9-3.2); Lymphocytes Percent Auto 15.8 % (18.3-44.2); Mean Corpuscular HGB Conc 31.3 g/dl (32-36); Mean Corpuscular Hemoglobin 28.5 pg (26-34); Mean Corpuscular Volume 90.8 fl (80-100); Mean Platelet Volume 10.4 fl (7.4-10.4); Monocytes Absolute Auto 0.8 K/mm3 (0.1-0.6); Monocytes Percent Auto 9.5 % (2.6-8.5); Neutrophils Absolute Auto 5.8 K/mm3 (1.3-6.7); Neutrophils Percent Auto 72.4 % (45.5-73.1); Platelet Count Result 175 k/mm3 (150-375); Red Blood Count 4.78 M/mm3 (4.6-6.20); Red Cell Distribution Width 14.8 % (11.5-14.5); White Blood Count 7.9 K/mm3 (4.5-10.0)
[2023-03-26 14:10] LABS: Appearance Urine Clear (Clear); Bacteria Urine None Seen /hpf; Bilirubin Urine Negative (Negative); Blood Urine Negative (Negative); Color Urine Yellow (Yellow); Glucose Urine UA 3+ mg/dL (Negative); Ketones Urine 2+ mg/dL (Negative); Leukocyte Esterase Ur Negative LEU/UL (Negative); Nitrate Urine Negative (Negative); Non Pathogenic Casts 0-2; Protein Urine Trace mg/dL (Negative); RBC Urine 0-2 /hpf (0-2); Specific Grav Ur 1.034 (1.001-1.035); Squamous Epithelial Cell Urine None seen /hpf (Few); WBC Urine 0-5 /hpf
[2023-03-26 14:12] LABS: Lactic Acid Reflex 1.6 mmol/L (0.7-2.0)
[2023-03-26 14:14] LABS: Add Urine Microscopic? YES
[2023-03-26 14:17] LABS: Alanine Aminotransferase 25 U/L (6-50); Albumin Level 4.3 g/dL (3.5-5.1); Alkaline Phosphatase 58 U/L (38-126); Anion Gap 6 mmol/L (8-16); Aspartate Amino Transferase 34 U/L (17-59); Bilirubin,Total 0.8 mg/dL (0.2-1.3); Blood Urea Nitrogen 20 mg/dL (9-20); Carbon Dioxide 29 mmol/L (22-30); Chloride 101 mmol/L (98-107); Estimated CRCL calculation 62 ml/min; Estimated Glomerular Filt Rate 60; Glucose 104 mg/dL (65-110); Potassium 3.9 mmol/L (3.4-5.0); Sodium 136 mmol/L (137-145)
[2023-03-26 14:30] LABS: CRP 14.5 mg/dL (<1.0)
[2023-03-26 14:38] LABS: Influenza A QL RT-PCR Negative (Negative); Influenza B QL RT-PCR Negative (Negative); SARS-CoV-2 RNA PCR Positive (Negative)
[2023-03-26 14:38] LABS: Erythrocyte Sedimentation Rate 41 mm/hr (0-20)
[2023-03-26] MEDS: VANCOMYCIN 1,250 MG/NS 250 ML 1,250 MG/250 ML BAG 166.67 MG IVPB ×2 (15:18→17:00)
--- NOTE | 2023-03-26 18:03 | ADMGEN ---
This patient, Manjeet Vinson, was admitted to 2 Medical Room 260-01. Patient/family oriented to hospital policies and general routines including ID bracelet, bed and alarms, visiting hours, pain management, procedures, bathroom and other care routines, personal items, smoking policy, room service/diet, and visiting hours. Information on how to activate the Rapid Response Team has been discussed. Patient/Family are encouraged to report perceived risks to care and to ask questions if they do not understand what they are told or what they should do.
[2023-03-26 18:04] VITALS: BMI 30.2
--- NOTE | 2023-03-26 19:56 | PM.IMHP ---
H&P: HPI History of Present Illness Date/Time: 03/26/23 19:56 Chief Complaint: LLE redness Narrative: THIS IS A 67-YEAR-OLD MALE WITH PAST MEDICAL HISTORY SIGNIFICANT FOR TYPE DIABETES MELLITUS, DYSLIPIDEMIA, PERIPHERAL DIABETIC NEUROPATHY, CHARCOT FOOT DUE TO DIABETES MELLITUS, CHRONIC KIDNEY DISEASE, DIABETIC FOOT ULCER, RECURRENT CELLULITIS OF LEFT LOWER EXTREMITY. PATIENT PRESENTS TO THE EMERGENCY ROOM DUE TO LEFT LOWER EXTREMITY REDNESS TENDERNESS WARMTH FOR THE LAST WEEK OR SO PATIENT HAD COMPLETED COURSE OF ANTIBIOTICS IN THE OUTPATIENT SETTING. Left foot Technique: AP, oblique, and lateral views were obtained. Clinical History: First metatarsal ulcer Findings: No acute fracture or dislocation is seen. There is advanced degenerative change at the tarsometatarsal joints and naviculocuneiform articulations. There is mild degenerative change at the first MTP joint. Possible chronic fracture of the dorsal aspect of the medial cuneiform. Plantar ulcer noted at the first MTP joint region. Impression: Advanced degenerative change of the midfoot articulations, as detailed above, with suspected chronic fracture of the dorsal aspect of the medial cuneiform. Findings could reflect developing Charcot foot. No definite evidence for osteomyelitis. Plantar ulcer at the first MTP joint region. XR chest 1V portable DATE: 03/26/2023 14:09 INDICATION: Cough. Covid.? TECHNIQUE: Portable upright AP chest on 03/26/2023 at 1356 hours? COMPARISON: 05/03/2022 portable AP chest? FINDINGS: There is chronic elevation right diaphragm and likely chronic discoid atelectasis or scarring in the right lower lung, relatively stable in appearance since 05/03/2022. Normal heart size. No hilar or mediastinal enlargement. No pulmonary infiltrate or consolidation, pleural effusion or pulmonary vascular congestion or pneumothorax. Diffuse idiopathic skeletal hyperostosis of the thoracic spine. IMPRESSION: Chronic elevation right diaphragm and probable chronic discoid atelectasis or scarring, right lower lung No active disease otherwise or significant change since 05/03/2022? XR tibia fibula LT 2V DATE: 03/26/2023 14:09 INDICATION: Cellulitis? TECHNIQUE: AP and lateral portable views of the left lower leg? COMPARISON: None? FINDINGS: No radiopaque soft tissue foreign body or subcutaneous emphysema is noted. No fracture, dislocation, periosteal reaction or bone destruction of the tibia or fibula. Normal alignment and preservation of joint spaces at the knee and ankle.? IMPRESSION: No significant bony abnormality? Review of Systems Review of Systems: LLE redness, erythema, warmth, Constitutional: Constitutional: Denies chills, Denies fatigue, Denies fever(s), Denies malaise, Denies night sweats and Denies weakness Eyes: Eyes: Denies change in vision ENT: Denies dysphagia and Denies odynophagia Cardiovascular: Cardiovascular: Denies chest pain, Denies radiating jaw, neck or arm pain and Denies palpitations Respiratory: Respiratory: Denies chest congestion, Denies cough, Denies excessive phlegm production and Denies dyspnea Gastrointestinal: Gastrointestinal: Denies abdominal pain, Denies dyspepsia, Denies heartburn, Denies diarrhea, Denies nausea and Denies vomiting Genitourinary: Genitourinary: Denies dysuria and Denies flank pain Musculoskeletal: Musculoskeletal: Reports other (LEFT LOWER EXTREMITY REDNESS WARMTH TENDERNESS) Integumentary/Breasts: Skin/Breast: Reports skin pain, Reports skin swelling (LEFT LOWER EXTREMITY) and Reports wounds (LEFT FOOT ) Neurologic: Denies focal weakness and Denies Sensory deficit (Neuro) Psychiatric: Psychiatric: Reports no additional psychiatric complaints and Reports as per HPI Endocrine: Endocrine: Denies cold intolerance, Denies fatigue, Denies flushing, Denies heat intolerance, Denies polyphagia, Denies polydipsia and Denies palpitations Hematologic/Lymphatic: Hematologi
[2023-03-26 19:58] VITALS: BP 120/59; PULSE 69; RESP 18; TEMP 37.1; O2SAT 98
[2023-03-26 20:00] VITALS: PULSE 69; RESP 18; O2SAT 98
[2023-03-26 20:34] LABS: Glucose Point of Care 91 mg/dl (65-105)
[2023-03-27] MEDS: metroNIDAZOLE 500 MG/ISO 100ML 500 MG/100 ML BAG 100 MG IVPB ×3 (05:14→22:03)
[2023-03-27 05:29] LABS: Estimated CRCL calculation 57 ml/min; Estimated Glomerular Filt Rate 55
[2023-03-27 06:00] VITALS: BP 113/63; PULSE 66; RESP 18; TEMP 37.1; O2SAT 97
[2023-03-27 08:11] LABS: Glucose Point of Care 86 mg/dl (65-105)
[2023-03-27 10:04] VITALS: O2SAT 95
[2023-03-27] MEDS: lisinopriL 20 MG TABLET PO (10:05)
[2023-03-27] MEDS: ASPIRIN 81 MG CHEWABLE TABLET PO (10:05)
[2023-03-27] MEDS: CEFEPIME 2 GM/NS 50 ML 2 GM/50 ML BAG IVPB ×2 (10:05→21:29)
[2023-03-27] MEDS: GABAPENTIN 100 MG CAPSULE 200 MG PO ×2 (10:05→17:48)
[2023-03-27] MEDS: CYANOCOBALAMIN 1,000 MCG TABLET 1000 MCG BY MOUTH (10:05)
[2023-03-27 11:57] LABS: Glucose Point of Care 194 mg/dl (65-105)
[2023-03-27 13:55] VITALS: BP 111/59; PULSE 66; RESP 17; TEMP 37; O2SAT 96
--- NOTE | 2023-03-27 14:47 | PM.IMPN ---
Progress Note: A&P Assessment and Plan (1) Cellulitis: Qualifiers: Laterality: left Site of cellulitis: extremity Site of cellulitis of extremity: lower extremity Qualified Code(s): L03.116 - Cellulitis of left lower limb Code(s): L03.90 - Cellulitis, unspecified Status: Acute (2) Diabetic peripheral neuropathy associated with type 2 diabetes mellitus: Code(s): E11.42 - Type 2 diabetes mellitus with diabetic polyneuropathy Status: Acute (3) Essential (primary) hypertension: Code(s): I10 - Essential (primary) hypertension Status: Chronic (4) IDDM (insulin dependent diabetes mellitus): Status: Acute (5) CKD (chronic kidney disease) stage 3, GFR 30-59 ml/min: Qualifiers: Chronic kidney disease stage 3 subtype: unspecified whether 3a or 3b Qualified Code(s): N18.30 - Chronic kidney disease, stage 3 unspecified Code(s): N18.30 - Chronic kidney disease, stage 3 unspecified Status: Chronic (6) Diabetic ulcer of left foot: Qualifiers: Diabetes mellitus type: type 2 Diabetic foot ulcer location: unspecified part of foot Non-pressure ulcer stage: unspecified non-pressure ulcer stage Qualified Code(s): E11.621 - Type 2 diabetes mellitus with foot ulcer; L97.529 - Non-pressure chronic ulcer of other part of left foot with unspecified severity Code(s): E11.621 - Type 2 diabetes mellitus with foot ulcer; L97.529 - Non-pressure chronic ulcer of other part of left foot with unspecified severity Status: Chronic (7) Charcot foot due to diabetes mellitus: Code(s): E11.610 - Type 2 diabetes mellitus with diabetic neuropathic arthropathy Status: Acute Plan 67-year-old male with history of diabetes presented with left lower extremity. Redness diagnosed with cellulitis also has chronic diabetic foot ulcer. Labs with no leukocytosis. ESR 41 CRP 14.5. S positive for COVID. Incidental finding no hypoxia or respiratory symptoms. Chest x-ray with chronic elevation of the right had diaphragmatic and probable chronic discoid atelectasis or scarring in the right lower lung. No evidence of active disease otherwise. X-ray left tib-fib shows no subcutaneous emphysema. X-ray of the left foot shows advanced degenerative change of the midfoot articulations suspected chronic fracture of the dorsal aspect of the medial cuneiform could represent developing chart code foot. No evidence of osteomyelitis from the foot ulceration. Started on vancomycin cefepime and Flagyl for left lower extremity cellulitis. COVID positive with no active symptoms. Follow cultures Diabetic peripheral neuropathy on gabapentin Hypertension Insulin-dependent diabetes mellitus CKD stage 3 Diabetic foot ulcer Charcot foot DVT prophylaxis Lovenox Code status full code Subjective Date/time seen: 03/27/23 14:47 Interval history: Feeling better. Feels left leg is less red. He never had any pain in the area. Review of Systems Review of Systems: All systems reviewed & are unremarkable except as noted in HPI and below Exam Narrative: GENERAL: Well-appearing, in no acute distress.? Patient resting comfortably in exam bed.? He is pleasant and conversational. HEAD: Normocephalic EYES: PERRLA CHEST:? No respiratory distress. Clear to auscultation, no adventitious breath sounds. HEART: Regular rate and rhythm.? No murmur heard.? Normal peripheral pulses. ABDOMEN: Soft, nontender, normal active bowel sounds. EXTREMITIES: Normal range of motion.? No edema. SKIN: 1 cm stage III ulceration to the left plantar aspect of the distal first metatarsal with a small amount of mixture tunneling.? No active drainage but there is surrounding mild blanching erythema.? Left lower extremity with blanching circumferential erythema extending from the left ankle to the proximal tib-fib.? No blisters or weeping.? No crepitus. NEURO: No focal deficits.? Alert and oriented x3. PSYCH: No
[2023-03-27 17:30] LABS: Glucose Point of Care 134 mg/dl (65-105)
[2023-03-27 20:13] VITALS: BP 114/63; PULSE 68; RESP 18; TEMP 36.7; O2SAT 94
[2023-03-27 20:48] LABS: Glucose Point of Care 220 mg/dl (65-105)
[2023-03-27] MEDS: ATORVASTATIN 10 MG TABLET PO (21:28)
[2023-03-27] MEDS: INSULIN GLARGINE (*BKC) 100 UNITS/ML 23 UNITS SUB-Q (21:29)
[2023-03-27 22:28] VITALS: O2SAT 95
[2023-03-28 03:49] LABS: Basophils Percent Auto 0.9 % (0.2-1.2); Eosinophils Absolute Auto 0.1 K/mm3 (0-0.3); Eosinophils Percent Auto 2.6 % (0-4.4); Hematocrit 38.6 % (42.0-52.0); Hemoglobin 12.1 g/dL (14.0-18.0); Immature Granulocyte Absolute 0.03 K/mm3 (0.00-0.031); Immature Granulocyte Percent A 0.7 % (0-0.5); Lymphocytes Absolute Auto 0.97 K/mm3 (0.9-3.2); Mean Corpuscular HGB Conc 31.3 g/dl (32-36); Mean Corpuscular Hemoglobin 28.1 pg (26-34); Mean Corpuscular Volume 89.8 fl (80-100); Mean Platelet Volume 10.3 fl (7.4-10.4); Monocytes Absolute Auto 0.4 K/mm3 (0.1-0.6); Monocytes Percent Auto 9.3 % (2.6-8.5); Neutrophils Percent Auto 65.5 % (45.5-73.1); Platelet Count Result 147 k/mm3 (150-375); Red Cell Distribution Width 14.7 % (11.5-14.5); White Blood Count 4.6 K/mm3 (4.5-10.0)
[2023-03-28 03:59] LABS: Alanine Aminotransferase 19 U/L (6-50); Albumin Level 3.5 g/dL (3.5-5.1); Alkaline Phosphatase 57 U/L (38-126); Anion Gap 6 mmol/L (8-16); Aspartate Amino Transferase 29 U/L (17-59); Bilirubin,Total 0.6 mg/dL (0.2-1.3); Blood Urea Nitrogen 20 mg/dL (9-20); Calcium 8.7 mg/dL (8.4-10.2); Carbon Dioxide 24 mmol/L (22-30); Chloride 105 mmol/L (98-107); Estimated CRCL calculation 62 ml/min; Estimated Glomerular Filt Rate 60; Glucose 158 mg/dL (65-110); Magnesium 2.2 mg/dL (1.6-2.3); Potassium 3.8 mmol/L (3.4-5.0); Sodium 135 mmol/L (137-145)
[2023-03-28 04:00] LABS: Vancomycin Trough 11.3 ug/mL (10.0-20.0)
[2023-03-28 06:00] VITALS: BP 126/68; PULSE 60; RESP 18; TEMP 37.1; O2SAT 97
[2023-03-28] MEDS: metroNIDAZOLE 500 MG/ISO 100ML 500 MG/100 ML BAG 100 MG IVPB ×3 (06:24→22:00)
[2023-03-28 08:22] LABS: Glucose Point of Care 145 mg/dl (65-105)
[2023-03-28] MEDS: ASPIRIN 81 MG CHEWABLE TABLET PO (09:26)
[2023-03-28] MEDS: GABAPENTIN 100 MG CAPSULE 200 MG PO ×2 (09:26→16:49)
[2023-03-28] MEDS: CYANOCOBALAMIN 1,000 MCG TABLET 1000 MCG BY MOUTH (09:26)
[2023-03-28] MEDS: lisinopriL 20 MG TABLET PO (09:27)
[2023-03-28] MEDS: ENOXAPARIN 40 MG/0.4 ML SYRINGE SUB-Q (09:27)
[2023-03-28] MEDS: CEFEPIME 2 GM/NS 50 ML 2 GM/50 ML BAG IVPB ×2 (09:28→21:29)
--- NOTE | 2023-03-28 10:41 | PM.IMPN ---
Progress Note: A&P Assessment and Plan (1) Cellulitis: Qualifiers: Laterality: left Site of cellulitis: extremity Site of cellulitis of extremity: lower extremity Qualified Code(s): L03.116 - Cellulitis of left lower limb Code(s): L03.90 - Cellulitis, unspecified Status: Acute (2) Diabetic peripheral neuropathy associated with type 2 diabetes mellitus: Code(s): E11.42 - Type 2 diabetes mellitus with diabetic polyneuropathy Status: Acute (3) Essential (primary) hypertension: Code(s): I10 - Essential (primary) hypertension Status: Chronic (4) IDDM (insulin dependent diabetes mellitus): Status: Acute (5) CKD (chronic kidney disease) stage 3, GFR 30-59 ml/min: Qualifiers: Chronic kidney disease stage 3 subtype: unspecified whether 3a or 3b Qualified Code(s): N18.30 - Chronic kidney disease, stage 3 unspecified Code(s): N18.30 - Chronic kidney disease, stage 3 unspecified Status: Chronic (6) Diabetic ulcer of left foot: Qualifiers: Diabetes mellitus type: type 2 Diabetic foot ulcer location: unspecified part of foot Non-pressure ulcer stage: unspecified non-pressure ulcer stage Qualified Code(s): E11.621 - Type 2 diabetes mellitus with foot ulcer; L97.529 - Non-pressure chronic ulcer of other part of left foot with unspecified severity Code(s): E11.621 - Type 2 diabetes mellitus with foot ulcer; L97.529 - Non-pressure chronic ulcer of other part of left foot with unspecified severity Status: Chronic (7) Charcot foot due to diabetes mellitus: Code(s): E11.610 - Type 2 diabetes mellitus with diabetic neuropathic arthropathy Status: Acute Plan 67-year-old male with history of diabetes presented with left lower extremity. Redness diagnosed with cellulitis also has chronic diabetic foot ulcer. Labs with no leukocytosis. ESR 41 CRP 14.5. S positive for COVID. Incidental finding no hypoxia or respiratory symptoms. Chest x-ray with chronic elevation of the right had diaphragmatic and probable chronic discoid atelectasis or scarring in the right lower lung. No evidence of active disease otherwise. X-ray left tib-fib shows no subcutaneous emphysema. X-ray of the left foot shows advanced degenerative change of the midfoot articulations suspected chronic fracture of the dorsal aspect of the medial cuneiform could represent developing chart code foot. No evidence of osteomyelitis from the foot ulceration. Started on vancomycin cefepime and Flagyl for left lower extremity cellulitis. Blood culture negative x2. wound swab obtained today and will send for cutlure. previous culture with MRSA COVID positive with no active symptoms. Follow cultures Diabetic peripheral neuropathy on gabapentin Hypertension Insulin-dependent diabetes mellitus CKD stage 3 Diabetic foot ulcer Charcot foot DVT prophylaxis Lovenox Code status full code Subjective Date/time seen: 03/28/23 10:41 Interval history: No overnight events. Remains afebrile. Oxygenation adequate. Labs were reviewed. Discussed with the nursing staff. Review of Systems Review of Systems: All systems reviewed & are unremarkable except as noted in HPI and below Exam Narrative: GENERAL: Well-appearing, in no acute distress.? Patient resting comfortably in exam bed.? He is pleasant and conversational. HEAD: Normocephalic EYES: PERRLA CHEST:? No respiratory distress. Clear to auscultation, no adventitious breath sounds. HEART: Regular rate and rhythm.? No murmur heard.? Normal peripheral pulses. ABDOMEN: Soft, nontender, normal active bowel sounds. EXTREMITIES: Normal range of motion.? No edema. SKIN: 1 cm stage III ulceration to the left plantar aspect of the distal first metatarsal with a small amount of mixture tunneling.? No active drainage but there is surrounding mild blanching erythema.? Left lower extremity with blanching circumferential erythema extending
[2023-03-28 11:55] LABS: Glucose Point of Care 184 mg/dl (65-105)
[2023-03-28 14:34] VITALS: BP 117/67; PULSE 68; RESP 16; TEMP 36.9; O2SAT 100
[2023-03-28] MEDS: SILVERGEL (ELTA) 45 ML 1 APPLIC TOPICAL (15:08)
[2023-03-28 16:51] LABS: Glucose Point of Care 139 mg/dl (65-105)
[2023-03-28 20:23] VITALS: BP 124/73; PULSE 60; RESP 16; TEMP 36.6; O2SAT 98
[2023-03-28 20:33] LABS: Glucose Point of Care 181 mg/dl (65-105)
[2023-03-28] MEDS: INSULIN GLARGINE (*BKC) 100 UNITS/ML 23 UNITS SUB-Q (21:29)
[2023-03-28] MEDS: ATORVASTATIN 10 MG TABLET PO (21:30)
[2023-03-29 05:49] LABS: Eosinophils Absolute Auto 0.1 K/mm3 (0-0.3); Eosinophils Percent Auto 3.1 % (0-4.4); Hematocrit 42.8 % (42.0-52.0); Hemoglobin 13.3 g/dL (14.0-18.0); Immature Granulocyte Absolute 0.03 K/mm3 (0.00-0.031); Immature Granulocyte Percent A 0.7 % (0-0.5); Lymphocytes Absolute Auto 1.14 K/mm3 (0.9-3.2); Lymphocytes Percent Auto 27.1 % (18.3-44.2); Mean Corpuscular HGB Conc 31.1 g/dl (32-36); Mean Corpuscular Hemoglobin 28.5 pg (26-34); Mean Corpuscular Volume 91.6 fl (80-100); Mean Platelet Volume 10.6 fl (7.4-10.4); Monocytes Absolute Auto 0.4 K/mm3 (0.1-0.6); Monocytes Percent Auto 9.3 % (2.6-8.5); Neutrophils Absolute Auto 2.5 K/mm3 (1.3-6.7); Neutrophils Percent Auto 58.8 % (45.5-73.1); Platelet Count Result 164 k/mm3 (150-375); Red Blood Count 4.67 M/mm3 (4.6-6.20); Red Cell Distribution Width 14.6 % (11.5-14.5); White Blood Count 4.2 K/mm3 (4.5-10.0)
[2023-03-29 05:52] VITALS: BP 125/69; PULSE 58; RESP 20; TEMP 37.1; O2SAT 100
[2023-03-29 06:04] LABS: Alanine Aminotransferase 21 U/L (6-50); Albumin Level 3.7 g/dL (3.5-5.1); Alkaline Phosphatase 57 U/L (38-126); Anion Gap 6 mmol/L (8-16); Aspartate Amino Transferase 30 U/L (17-59); Bilirubin,Total 0.5 mg/dL (0.2-1.3); Blood Urea Nitrogen 15 mg/dL (9-20); Calcium 8.7 mg/dL (8.4-10.2); Carbon Dioxide 26 mmol/L (22-30); Chloride 104 mmol/L (98-107); Estimated CRCL calculation 67 ml/min; Estimated Glomerular Filt Rate > 60; Glucose 233 mg/dL (65-110); Magnesium 2.2 mg/dL (1.6-2.3); Potassium 3.5 mmol/L (3.4-5.0); Sodium 136 mmol/L (137-145)
[2023-03-29] MEDS: metroNIDAZOLE 500 MG/ISO 100ML 500 MG/100 ML BAG 100 MG IVPB ×3 (06:17→20:56)
[2023-03-29 08:00] LABS: Glucose Point of Care 193 mg/dl (65-105)
[2023-03-29] MEDS: CYANOCOBALAMIN 1,000 MCG TABLET 1000 MCG BY MOUTH (08:27)
[2023-03-29] MEDS: ASPIRIN 81 MG CHEWABLE TABLET PO (08:27)
[2023-03-29] MEDS: lisinopriL 20 MG TABLET PO (08:28)
[2023-03-29] MEDS: GABAPENTIN 100 MG CAPSULE 200 MG PO ×2 (08:28→17:39)
[2023-03-29] MEDS: ENOXAPARIN 40 MG/0.4 ML SYRINGE SUB-Q (08:28)
[2023-03-29] MEDS: CEFEPIME 2 GM/NS 50 ML 2 GM/50 ML BAG IVPB ×2 (09:49→20:55)
[2023-03-29 12:25] LABS: Glucose Point of Care 157 mg/dl (65-105)
--- NOTE | 2023-03-29 12:48 | PM.IMPN ---
Progress Note: A&P Assessment and Plan (1) Cellulitis: Qualifiers: Laterality: left Site of cellulitis: extremity Site of cellulitis of extremity: lower extremity Qualified Code(s): L03.116 - Cellulitis of left lower limb Code(s): L03.90 - Cellulitis, unspecified Status: Acute (2) Diabetic peripheral neuropathy associated with type 2 diabetes mellitus: Code(s): E11.42 - Type 2 diabetes mellitus with diabetic polyneuropathy Status: Acute (3) Essential (primary) hypertension: Code(s): I10 - Essential (primary) hypertension Status: Chronic (4) IDDM (insulin dependent diabetes mellitus): Status: Acute (5) CKD (chronic kidney disease) stage 3, GFR 30-59 ml/min: Qualifiers: Chronic kidney disease stage 3 subtype: unspecified whether 3a or 3b Qualified Code(s): N18.30 - Chronic kidney disease, stage 3 unspecified Code(s): N18.30 - Chronic kidney disease, stage 3 unspecified Status: Chronic (6) Diabetic ulcer of left foot: Qualifiers: Diabetes mellitus type: type 2 Diabetic foot ulcer location: unspecified part of foot Non-pressure ulcer stage: unspecified non-pressure ulcer stage Qualified Code(s): E11.621 - Type 2 diabetes mellitus with foot ulcer; L97.529 - Non-pressure chronic ulcer of other part of left foot with unspecified severity Code(s): E11.621 - Type 2 diabetes mellitus with foot ulcer; L97.529 - Non-pressure chronic ulcer of other part of left foot with unspecified severity Status: Chronic (7) Charcot foot due to diabetes mellitus: Code(s): E11.610 - Type 2 diabetes mellitus with diabetic neuropathic arthropathy Status: Acute Plan 67-year-old male with history of diabetes presented with left lower extremity. Redness diagnosed with cellulitis also has chronic diabetic foot ulcer. Labs with no leukocytosis. ESR 41 CRP 14.5. S positive for COVID. Incidental finding no hypoxia or respiratory symptoms. Chest x-ray with chronic elevation of the right had diaphragmatic and probable chronic discoid atelectasis or scarring in the right lower lung. No evidence of active disease otherwise. X-ray left tib-fib shows no subcutaneous emphysema. X-ray of the left foot shows advanced degenerative change of the midfoot articulations suspected chronic fracture of the dorsal aspect of the medial cuneiform could represent developing chart code foot. No evidence of osteomyelitis from the foot ulceration. Started on vancomycin cefepime and Flagyl for left lower extremity cellulitis. Blood culture negative x2. wound swab obtained today and will send for cutlure. previous culture with MRSA. Wound culture preliminary is with no organisms.. Needs to continue to see a paid search specialist and wound care as advised and recommended. His been advise boot to wear however did not comply with this recommendation due to difficulty in getting up to go to the bathroom at night. He has been told he is not a candidate for hyperbaric oxygen treatment. Suggested to continue to follow with waste specialist that he has seen before COVID positive with no active symptoms. Follow cultures Diabetic peripheral neuropathy on gabapentin Hypertension Insulin-dependent diabetes mellitus CKD stage 3 Diabetic foot ulcer Charcot foot DVT prophylaxis Lovenox Code status full code Subjective Date/time seen: 03/29/23 12:48 Interval history: New complaints. Remains afebrile. Foot wound is chronic. Leg cellulitis improving. Review of Systems Review of Systems: All systems reviewed & are unremarkable except as noted in HPI and below Exam Narrative: GENERAL: Well-appearing, in no acute distress.? Patient resting comfortably in exam bed.? He is pleasant and conversational. HEAD: Normocephalic EYES: PERRLA CHEST:? No respiratory distress. Clear to auscultation, no adventitious breath sounds. HEART: Regular rate and rhythm.? No murmur heard
[2023-03-29] MEDS: SILVERGEL (ELTA) 45 ML 1 APPLIC TOPICAL (14:14)
[2023-03-29 15:19] VITALS: BP 108/59; PULSE 65; RESP 18; TEMP 36.2; O2SAT 95
[2023-03-29 15:57] LABS: Vancomycin Trough 16.1 ug/mL (10.0-20.0)
[2023-03-29 17:00] LABS: Glucose Point of Care 173 mg/dl (65-105)
[2023-03-29 20:00] VITALS: PULSE 56; RESP 20; O2SAT 98
[2023-03-29 20:32] VITALS: BP 127/59; PULSE 56; RESP 20; TEMP 36.5; O2SAT 98
[2023-03-29 20:52] LABS: Glucose Point of Care 194 mg/dl (65-105)
[2023-03-29] MEDS: ATORVASTATIN 10 MG TABLET PO (20:55)
[2023-03-29] MEDS: INSULIN GLARGINE (*BKC) 100 UNITS/ML 23 UNITS SUB-Q (20:56)
[2023-03-30] MEDS: metroNIDAZOLE 500 MG/ISO 100ML 500 MG/100 ML BAG 100 MG IVPB (05:12)
[2023-03-30 05:38] VITALS: BP 122/66; PULSE 56; RESP 20; TEMP 36.6; O2SAT 96
[2023-03-30 08:04] LABS: Glucose Point of Care 188 mg/dl (65-105)
[2023-03-30] MEDS: ASPIRIN 81 MG CHEWABLE TABLET PO (09:28)
[2023-03-30] MEDS: GABAPENTIN 100 MG CAPSULE 200 MG PO ×2 (09:28→17:08)
[2023-03-30] MEDS: CYANOCOBALAMIN 1,000 MCG TABLET 1000 MCG BY MOUTH (09:29)
[2023-03-30] MEDS: lisinopriL 20 MG TABLET PO (09:29)
[2023-03-30] MEDS: ENOXAPARIN 40 MG/0.4 ML SYRINGE SUB-Q (09:29)
[2023-03-30] MEDS: CEFEPIME 2 GM/NS 50 ML 2 GM/50 ML BAG IVPB (09:40)
--- NOTE | 2023-03-30 11:33 | PM.IMPN ---
Progress Note: A&P Assessment and Plan (1) Cellulitis: Qualifiers: Laterality: left Site of cellulitis: extremity Site of cellulitis of extremity: lower extremity Qualified Code(s): L03.116 - Cellulitis of left lower limb Code(s): L03.90 - Cellulitis, unspecified Status: Acute (2) Diabetic peripheral neuropathy associated with type 2 diabetes mellitus: Code(s): E11.42 - Type 2 diabetes mellitus with diabetic polyneuropathy Status: Acute (3) Essential (primary) hypertension: Code(s): I10 - Essential (primary) hypertension Status: Chronic (4) IDDM (insulin dependent diabetes mellitus): Status: Acute (5) CKD (chronic kidney disease) stage 3, GFR 30-59 ml/min: Qualifiers: Chronic kidney disease stage 3 subtype: unspecified whether 3a or 3b Qualified Code(s): N18.30 - Chronic kidney disease, stage 3 unspecified Code(s): N18.30 - Chronic kidney disease, stage 3 unspecified Status: Chronic (6) Diabetic ulcer of left foot: Qualifiers: Diabetes mellitus type: type 2 Diabetic foot ulcer location: unspecified part of foot Non-pressure ulcer stage: unspecified non-pressure ulcer stage Qualified Code(s): E11.621 - Type 2 diabetes mellitus with foot ulcer; L97.529 - Non-pressure chronic ulcer of other part of left foot with unspecified severity Code(s): E11.621 - Type 2 diabetes mellitus with foot ulcer; L97.529 - Non-pressure chronic ulcer of other part of left foot with unspecified severity Status: Chronic (7) Charcot foot due to diabetes mellitus: Code(s): E11.610 - Type 2 diabetes mellitus with diabetic neuropathic arthropathy Status: Acute Plan 67-year-old male with history of diabetes presented with left lower extremity. Redness diagnosed with cellulitis also has chronic diabetic foot ulcer. Labs with no leukocytosis. ESR 41 CRP 14.5. S positive for COVID. Incidental finding no hypoxia or respiratory symptoms. Chest x-ray with chronic elevation of the right had diaphragmatic and probable chronic discoid atelectasis or scarring in the right lower lung. No evidence of active disease otherwise. X-ray left tib-fib shows no subcutaneous emphysema. X-ray of the left foot shows advanced degenerative change of the midfoot articulations suspected chronic fracture of the dorsal aspect of the medial cuneiform could represent developing chart code foot. No evidence of osteomyelitis from the foot ulceration. Started on vancomycin cefepime and Flagyl for left lower extremity cellulitis. Blood culture negative x2. wound swab obtained today and CULTURE GROWING STAPHYLOCOCCUS AUREUS AND YEAST.. previous culture with MRSA. Needs to continue to see a content production specialist and wound care as advised and recommended. His been advise boot to wear however did not comply with this recommendation due to difficulty in getting up to go to the bathroom at night. He has been told he is not a candidate for hyperbaric oxygen treatment. Suggested to continue to follow with career specialist that he has seen before. WILL STOP THIS CEFEPIME AND METRONIDAZOLE. ONCE CULTURES BACK HOPEFULLY BACTRIM IS SENSITIVE WILL SEND HIM ON BACTRIM FOR 2 WEEKS COURSE COVID positive with no active symptoms. Follow cultures Diabetic peripheral neuropathy on gabapentin Hypertension Insulin-dependent diabetes mellitus CKD stage 3 Diabetic foot ulcer Charcot foot DVT prophylaxis Lovenox Code status full code Subjective Date/time seen: 03/30/23 11:33 Interval history: NO NEW COMPLAINTS. LEG SWELLING HAS IMPROVED. WOUND CULTURE GROWING STAPHYLOCOCCUS AUREUS. Review of Systems Review of Systems: All systems reviewed & are unremarkable except as noted in HPI and below Exam Narrative: GENERAL: Well-appearing, in no acute distress.? Patient resting comfortably in exam bed.? He is pleasant and conversational. HEAD: Normocephalic EYES: PERRLA CHEST:? No
[2023-03-30 11:46] LABS: Glucose Point of Care 224 mg/dl (65-105)
[2023-03-30] MEDS: SILVERGEL (ELTA) 45 ML 1 APPLIC TOPICAL (14:41)
[2023-03-30 16:25] VITALS: BP 121/69; PULSE 55; RESP 20; TEMP 36.8; O2SAT 95
[2023-03-30 16:57] LABS: Glucose Point of Care 157 mg/dl (65-105)
[2023-03-30] MEDS: metFORMIN HCL 500 MG TABLET 1000 MG PO (17:09)
[2023-03-30] MEDS: INSULIN ASPART (*BKC) 100 UNITS/ML SUB-Q (17:10)
[2023-03-30 19:45] VITALS: PULSE 61; RESP 18; O2SAT 97
[2023-03-30 20:18] LABS: Glucose Point of Care 182 mg/dl (65-105)
[2023-03-30 20:26] VITALS: BP 129/71; PULSE 57; RESP 18; TEMP 36.6; O2SAT 99
[2023-03-30] MEDS: INSULIN GLARGINE (*BKC) 100 UNITS/ML 23 UNITS SUB-Q (21:00)
[2023-03-30] MEDS: ATORVASTATIN 10 MG TABLET PO (21:00)
[2023-03-31 05:32] VITALS: BP 123/65; PULSE 57; RESP 18; TEMP 36.5; O2SAT 97
[2023-03-31 05:37] LABS: Estimated CRCL calculation 74 ml/min; Estimated Glomerular Filt Rate > 60
[2023-03-31 08:00] VITALS: O2SAT 97
[2023-03-31] MEDS: metFORMIN HCL 500 MG TABLET 1000 MG PO (08:15)
[2023-03-31] MEDS: ENOXAPARIN 40 MG/0.4 ML SYRINGE SUB-Q (08:15)
[2023-03-31] MEDS: GABAPENTIN 100 MG CAPSULE 200 MG PO (08:15)
[2023-03-31] MEDS: CYANOCOBALAMIN 1,000 MCG TABLET 1000 MCG BY MOUTH (08:15)
[2023-03-31] MEDS: EMPAGLIFLOZIN 10 MG TABLET PO (08:15)
[2023-03-31] MEDS: ASPIRIN 81 MG CHEWABLE TABLET PO (08:15)
[2023-03-31] MEDS: SILVERGEL (ELTA) 45 ML 1 APPLIC TOPICAL (08:16)
[2023-03-31] MEDS: lisinopriL 20 MG TABLET PO (08:17)
[2023-03-31] MEDS: INSULIN ASPART (*BKC) 100 UNITS/ML SUB-Q ×2 (08:19→12:24)
[2023-03-31 08:20] LABS: Glucose Point of Care 145 mg/dl (65-105)
[2023-03-31 11:53] LABS: Glucose Point of Care 158 mg/dl (65-105)
--- NOTE | 2023-03-31 12:49 | PM.DS ---
DS: Admitting Diagnosis Discharge Date 03/31/2023 Admitting Diagnosis Left leg cellulitis DS: Discharge Diagnosis Discharge Diagnosis (1) Cellulitis: Qualifiers: Laterality: left Site of cellulitis: extremity Site of cellulitis of extremity: lower extremity Qualified Code(s): L03.116 - Cellulitis of left lower limb Code(s): L03.90 - Cellulitis, unspecified Status: Acute (2) Diabetic peripheral neuropathy associated with type 2 diabetes mellitus: Code(s): E11.42 - Type 2 diabetes mellitus with diabetic polyneuropathy Status: Acute (3) Essential (primary) hypertension: Code(s): I10 - Essential (primary) hypertension Status: Chronic (4) IDDM (insulin dependent diabetes mellitus): Status: Acute (5) CKD (chronic kidney disease) stage 3, GFR 30-59 ml/min: Qualifiers: Chronic kidney disease stage 3 subtype: unspecified whether 3a or 3b Qualified Code(s): N18.30 - Chronic kidney disease, stage 3 unspecified Code(s): N18.30 - Chronic kidney disease, stage 3 unspecified Status: Chronic (6) Diabetic ulcer of left foot: Qualifiers: Diabetes mellitus type: type 2 Diabetic foot ulcer location: unspecified part of foot Non-pressure ulcer stage: unspecified non-pressure ulcer stage Qualified Code(s): E11.621 - Type 2 diabetes mellitus with foot ulcer; L97.529 - Non-pressure chronic ulcer of other part of left foot with unspecified severity Code(s): E11.621 - Type 2 diabetes mellitus with foot ulcer; L97.529 - Non-pressure chronic ulcer of other part of left foot with unspecified severity Status: Chronic (7) Charcot foot due to diabetes mellitus: Code(s): E11.610 - Type 2 diabetes mellitus with diabetic neuropathic arthropathy Status: Acute DS: Summary Hospital Course Hospital Course: 67-year-old male with history of diabetes presented with left lower extremity Redness diagnosed with cellulitis. He also has chronic diabetic foot ulcer.? Labs with no leukocytosis.? ESR 41 CRP 14.5.? He tested positive for COVID.? Incidental finding with no hypoxia or respiratory symptoms.? Chest x-ray with chronic elevation of the right had diaphragmatic and probable chronic discoid atelectasis or scarring in the right lower lung.? No evidence of active disease otherwise. X-ray left tib-fib shows no subcutaneous emphysema. X-ray of the left foot shows advanced degenerative change of the midfoot articulations suspected chronic fracture of the dorsal aspect of the medial cuneiform could represent developing chart code foot.? No evidence of osteomyelitis from the foot ulceration.? He was started on vancomycin cefepime and Flagyl for left lower extremity cellulitis.? Blood culture negative x2. wound swab obtained and CULTURE GROWING STAPHYLOCOCCUS AUREUS AND YEAST.. previous culture with MRSA.? Will switch antibiotics to oral Bactrim and also cover yeast with fluconazole for 2 weeks. He will continue with dressing changes and follow-up with protein specialist as an outpatient basis. Wound care team did evaluate the patient during the hospital stay. COVID positive with no active symptoms. Follow cultures Diabetic peripheral neuropathy on gabapentin Hypertension Insulin-dependent diabetes mellitus CKD stage 3 Diabetic foot ulcer Charcot foot DVT prophylaxis Lovenox Code status full code Time Spent with Patient Time attestation: Total time spent providing and/or coordinating discharge services: 40 minutes Exam Narrative: GENERAL: Well-appearing, in no acute distress.? Patient resting comfortably in exam bed.? He is pleasant and conversational. HEAD: Normocephalic EYES: PERRLA CHEST:? No respiratory distress. Clear to auscultation, no adventitious breath sounds. HEART: Regular rate and rhythm.? No murmur heard.? Normal peripheral pulses. ABDOMEN: Soft, nontender, normal active bowel sounds. EXTREMITIES: Normal range of motion.? No edema. SKIN:
== END 2023-03-31 14:35 | disposition home or self-care (01) | DRG 602 ==
LOC: ANHED 16:41 → ANH2MED 17:21
PROVIDERS: Admitting Provider Family Medicine; Emergency Provider Physician Assistant; PCP Family Medicine; Visit Provider Internal Medicine
DX: L03.116 Cellulitis of left lower limb (principal); U07.1 COVID-19; L97.529 Non-pressure chronic ulcer of other part of left foot with unspecified severity; E11.621 Type 2 diabetes mellitus with foot ulcer; B02.9 Zoster without complications; B95.61 Methicillin susceptible Staphylococcus aureus infection as the cause of diseases classified elsewhere; B37.2 Candidiasis of skin and nail; E11.610 Type 2 diabetes mellitus with diabetic neuropathic arthropathy; E11.42 Type 2 diabetes mellitus with diabetic polyneuropathy; E11.22 Type 2 diabetes mellitus with diabetic chronic kidney disease; E78.5 Hyperlipidemia, unspecified; E53.8 Deficiency of other specified B group vitamins; E55.9 Vitamin D deficiency, unspecified; I12.9 Hypertensive chronic kidney disease with stage 1 through stage 4 chronic kidney disease, or unspecified chronic kidney disease; N18.30 Chronic kidney disease, stage 3 unspecified; Z79.4 Long term (current) use of insulin; Z79.82 Long term (current) use of aspirin; Z79.84 Long term (current) use of oral hypoglycemic drugs
CPT/HCPCS: 36415; 71045; 73590; 73630; 80053; 80202; 81001; 82565; 82948; 83605; 83735; 85025; 85652; 86140; 87040; 87070; 87106; 87147; 87181; 87186; 87205; 87636; 96365; 96366; 96367; 96368; 99285; A9270; G0378; J0692; J1650; J1815; J1836; J3370; J7030

== ENCOUNTER 2023-04-04 10:28 | Outpatient (CLI) | payer OTHER, SELFPAY ==
[2023-04-04 11:49] LABS: Basophils Absolute Auto 0.1 K/mm3 (0.0-0.1); Eosinophils Absolute Auto 0.1 K/mm3 (0-0.3); Eosinophils Percent Auto 1.9 % (0-4.4); Hematocrit 43.3 % (42.0-52.0); Hemoglobin 13.4 g/dL (14.0-18.0); Immature Granulocyte Absolute 0.05 K/mm3 (0.00-0.031); Immature Granulocyte Percent A 0.8 % (0-0.5); Lymphocytes Absolute Auto 1.64 K/mm3 (0.9-3.2); Lymphocytes Percent Auto 26.4 % (18.3-44.2); Mean Corpuscular HGB Conc 30.9 g/dl (32-36); Mean Corpuscular Hemoglobin 28.1 pg (26-34); Mean Corpuscular Volume 90.8 fl (80-100); Mean Platelet Volume 10.6 fl (7.4-10.4); Monocytes Absolute Auto 0.6 K/mm3 (0.1-0.6); Neutrophils Absolute Auto 3.8 K/mm3 (1.3-6.7); Neutrophils Percent Auto 60.9 % (45.5-73.1); Platelet Count Result 220 k/mm3 (150-375); Red Blood Count 4.77 M/mm3 (4.6-6.20); White Blood Count 6.2 K/mm3 (4.5-10.0)
[2023-04-04 12:03] LABS: Alanine Aminotransferase 31 U/L (6-50); Albumin Level 3.7 g/dL (3.5-5.1); Alkaline Phosphatase 65 U/L (38-126); Anion Gap 6 mmol/L (8-16); Aspartate Amino Transferase 40 U/L (17-59); Bilirubin,Total 0.5 mg/dL (0.2-1.3); Blood Urea Nitrogen 16 mg/dL (9-20); Calcium 9.1 mg/dL (8.4-10.2); Carbon Dioxide 28 mmol/L (22-30); Chloride 104 mmol/L (98-107); Estimated Glomerular Filt Rate 51; Glucose 122 mg/dL (65-110); Potassium 4.1 mmol/L (3.4-5.0); Sodium 138 mmol/L (137-145)
== END 2023-04-04 10:29 | disposition home or self-care (01) ==
LOC: ANHGOSHLAB 10:29
PROVIDERS: PCP Family Medicine; Visit Provider Internal Medicine
DX: E11.610 Type 2 diabetes mellitus with diabetic neuropathic arthropathy (principal)
CPT/HCPCS: 36415; 80053; 85025

== ENCOUNTER 2023-08-21 09:35 | Outpatient (CLI) | payer OTHER, SELFPAY ==
[2023-08-21 12:49] LABS: Basophils Absolute Auto 0.1 K/mm3 (0.0-0.1); Basophils Percent Auto 1.1 % (0.2-1.2); Eosinophils Absolute Auto 0.2 K/mm3 (0-0.3); Hematocrit 45.9 % (42.0-52.0); Immature Granulocyte Absolute 0.03 K/mm3 (0.00-0.031); Immature Granulocyte Percent A 0.5 % (0-0.5); Lymphocytes Absolute Auto 1.83 K/mm3 (0.9-3.2); Lymphocytes Percent Auto 27.6 % (18.3-44.2); Mean Corpuscular HGB Conc 30.5 g/dl (32-36); Mean Platelet Volume 10.5 fl (7.4-10.4); Monocytes Absolute Auto 0.6 K/mm3 (0.1-0.6); Monocytes Percent Auto 8.3 % (2.6-8.5); Neutrophils Absolute Auto 3.9 K/mm3 (1.3-6.7); Neutrophils Percent Auto 59.5 % (45.5-73.1); Platelet Count Result 198 k/mm3 (150-375); Red Blood Count 4.83 M/mm3 (4.6-6.20); White Blood Count 6.6 K/mm3 (4.5-10.0)
[2023-08-21 12:54] LABS: Alanine Aminotransferase 22 U/L (6-50); Albumin Level 3.9 g/dL (3.5-5.1); Alkaline Phosphatase 69 U/L (38-126); Anion Gap 6 mmol/L (8-16); Aspartate Amino Transferase 52 U/L (17-59); Bilirubin,Total 0.7 mg/dL (0.2-1.3); Blood Urea Nitrogen 23 mg/dL (9-20); Calcium 9.3 mg/dL (8.4-10.2); Carbon Dioxide 25 mmol/L (22-30); Chloride 104 mmol/L (98-107); Cholesterol 155 mg/dL (0-200); Estimated Glomerular Filt Rate 43; Glucose 106 mg/dL (65-110); HDL Direct 36 mg/dL; Potassium 4.7 mmol/L (3.4-5.0); Sodium 135 mmol/L (137-145); Triglycerides 172 mg/dL (<150)
[2023-08-21 13:07] LABS: LDL Cholesterol Direct 83 mg/dL
[2023-08-21 13:20] LABS: Vitamin D 25 Hydroxy 45.6 ng/mL
[2023-08-21 13:26] LABS: Prostate Specific Antigen 1.3 ng/mL (< OR = 4.0)
[2023-08-21 13:45] LABS: Vitamin B12 < 159.0 pg/mL (239-931)
[2023-08-21 13:53] LABS: Hemoglobin A1C 7.1 % (<5.7)
== END 2023-08-21 09:36 | disposition home or self-care (01) ==
LOC: ANHGOSHLAB 09:36
PROVIDERS: PCP Family Medicine; Visit Provider Nurse Practitioner Family
DX: E11.42 Type 2 diabetes mellitus with diabetic polyneuropathy (principal); E53.8 Deficiency of other specified B group vitamins; E55.9 Vitamin D deficiency, unspecified; E78.5 Hyperlipidemia, unspecified; I10 Essential (primary) hypertension; Z00.00 Encounter for general adult medical examination without abnormal findings; Z12.5 Encounter for screening for malignant neoplasm of prostate; Z13.29 Encounter for screening for other suspected endocrine disorder
CPT/HCPCS: 36415; 80053; 80061; 82306; 82607; 83036; 84153; 84443; 85025; G0103

== ENCOUNTER 2024-02-23 15:12 | Outpatient (CLI) | payer OTHER, SELFPAY ==
[2024-02-23 18:44] LABS: Alanine Aminotransferase 20 U/L (6-50); Albumin Level 4.2 g/dL (3.5-5.1); Alkaline Phosphatase 72 U/L (38-126); Anion Gap 11 mmol/L (4-12); Aspartate Amino Transferase 39 U/L (17-59); Bilirubin,Total 0.5 mg/dL (0.2-1.3); Blood Urea Nitrogen 21 mg/dL (9-20); Calcium 9.4 mg/dL (8.4-10.2); Carbon Dioxide 26 mmol/L (22-30); Chloride 102 mmol/L (98-107); Estimated Glomerular Filt Rate 55; Glucose 145 mg/dL (65-110); Potassium 4.1 mmol/L (3.4-5.0); Sodium 139 mmol/L (137-145)
[2024-02-23 19:23] LABS: Creatinine Urine 76.3 mg/dL
[2024-02-23 19:28] LABS: MALB Creatinine Ratio < 7.9 mg/g (0-30); Microalbumin Urine Random < 6.0 mg/L (0-16.7)
[2024-02-23 19:34] LABS: Hemoglobin A1C 6.9 % (<5.7)
== END 2024-02-23 15:13 | disposition home or self-care (01) ==
LOC: ANHGOSHLAB 15:13
PROVIDERS: PCP Family Medicine; Visit Provider Family Medicine
DX: E11.9 Type 2 diabetes mellitus without complications (principal); I10 Essential (primary) hypertension; E53.8 Deficiency of other specified B group vitamins
CPT/HCPCS: 36415; 80053; 82043; 82607; 83036

== ENCOUNTER 2024-05-02 10:13 | Emergency (ER) | payer OTHER, SELFPAY ==
--- NOTE | ~2024-05-02 | XR_ITS ---
EXAMINATION: XR elbow RT min 3V DATE: 05/02/2024 10:40 INDICATION: Right elbow pain and swelling post fall TECHNIQUE: Anteroposterior, two oblique and lateral views of the right elbow were obtained. COMPARISON: None. FINDINGS: Nondisplaced intra-articular fracture extending across the central aspect of the articular surface of the radial head. Alignment remains essentially anatomic with 1 mm lucent fracture gap but no incongr uity at the articular cortex. No other fractures identified. Joint space at the right elbow appear re latively preserved. There are chronic corticated heterotopic ossicles along the medial and lateral hu meral condyles which could be either enthesopathic or sequela of old trauma. Small elbow joint effusi on with displacement of the anterior but not the posterior fat pad. IMPRESSION: 1. Nondisplaced intra-articular fracture at the right radial head with associated elbow joint effusio n. Reviewed, dictated and finalized at location A. CAL FABRICATION TECHNICIAN IMPRESSION: 1. Nondisplaced intra-articular fracture at the right radial head with associat ed elbow joint effusion.
--- NOTE | ~2024-05-02 | XR_ITS ---
EXAMINATION: XR hand RT min 3V DATE: 05/02/2024 10:40 INDICATION: Right hand pain post fall TECHNIQUE: Posteroanterior, oblique and lateral views of the right hand were obtained. COMPARISON: None. FINDINGS: Bone alignment is normal. No evident fracture. There are suture anchors at the lunate and distal pole scaphoid. Polyarticular osteoarthritis, moderate severity at the first carpometacarpal joint and at the distal interphalangeal joints and mild at the wrist, midcarpal, triscaphe and first and third met acarpophalangeal joints. IMPRESSION: 1. Mild to moderate particular osteoarthritis at the right hand and wrist. No acute osseous abnormali ty. 2. Suture anchors at the lunate and scaphoid. Correlate with surgical history. Reviewed, dictated and finalized at location A. COPYIST IMPRESSION: 1. Mild to moderate particular osteoarthritis at the right hand and wrist. No a cute osseous abnormality. 2. Suture anchors at the lunate and scaphoid. Correlate with surgical history.
[2024-05-02 10:22] VITALS: BP 136/67; PULSE 76; RESP 16; TEMP 36.4; O2SAT 98
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
== END 2024-05-02 11:55 | disposition home or self-care (01) ==
PROVIDERS: Emergency Provider Nurse Practitioner Family; PCP Family Medicine
DX: S52.124A Nondisplaced fracture of head of right radius, initial encounter for closed fracture (principal); W19.XXXA Unspecified fall, initial encounter; I12.9 Hypertensive chronic kidney disease with stage 1 through stage 4 chronic kidney disease, or unspecified chronic kidney disease; E11.22 Type 2 diabetes mellitus with diabetic chronic kidney disease; N18.30 Chronic kidney disease, stage 3 unspecified; E78.5 Hyperlipidemia, unspecified
CPT/HCPCS: 29105; 73080; 73130; 99214; A4565; G0463

== ENCOUNTER 2024-05-07 14:43 | Emergency (ER) | payer OTHER, SELFPAY ==
[2024-05-07 14:55] VITALS: BP 94/63; PULSE 88; RESP 16; TEMP 36.6; O2SAT 100
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
[2024-05-07 15:19] VITALS: BP 110/64
[2024-05-07 15:23] VITALS: BP 110/64
== END 2024-05-07 15:28 | disposition home or self-care (01) ==
PROVIDERS: Emergency Provider Nurse Practitioner Family; PCP Family Medicine
DX: L03.116 Cellulitis of left lower limb (principal); I12.9 Hypertensive chronic kidney disease with stage 1 through stage 4 chronic kidney disease, or unspecified chronic kidney disease; E11.22 Type 2 diabetes mellitus with diabetic chronic kidney disease; N18.30 Chronic kidney disease, stage 3 unspecified; E11.42 Type 2 diabetes mellitus with diabetic polyneuropathy; E11.610 Type 2 diabetes mellitus with diabetic neuropathic arthropathy; E78.5 Hyperlipidemia, unspecified
CPT/HCPCS: 99213; G0463

== ENCOUNTER 2024-08-25 15:19 | Outpatient (CLI) | payer OTHER, SELFPAY ==
--- NOTE | ~2024-08-25 | XR_ITS ---
3 VIEWS THORACIC SPINE Ordering provider: Josh Ruiz MD History: . M54.6 - Pain in thoracic spine . Comparison: None. FINDINGS: VERTEBRAL BODIES: Normal height and alignment. No visible fracture or subluxation. Degenerative lyons es of the spine. DISK SPACES: Normal. SOFT TISSUES: Normal. IMPRESSION: No acute osseous abnormality of the thoracic spine. Reviewed, dictated and finalized at location A.
== END 2024-08-25 15:20 | disposition home or self-care (01) ==
LOC: GOSHIMG 15:20
PROVIDERS: PCP Family Medicine; Visit Provider Family Medicine
DX: M54.6 Pain in thoracic spine (principal)
CPT/HCPCS: 72072

== ENCOUNTER 2024-08-30 08:00 | Outpatient (CLI) | payer OTHER, SELFPAY ==
--- OUTSIDE RECORDS SUMMARY | 2024-08-30 08:11 | XMS_ITS | Clinical Summary ---
Author Organization [employer] [facility] [address] Address [address] [place] [address] Care Team Providers Care Java J2E[employer] Software Engineer Name Role Phone Cami Ruiz MD Primary Care Provider Allergies No known active allergies Medications amLODIPine (NORVASC) 5 mg tablet Take 5 mg by mouth daily. 2 Active aspirin (CURT CHEWABLE) 81 mg Tablet, Chewable CHEW ONE TABLET BY MOUTH ONCE DAILY 2 Active atorvastatin (LIPITOR) 10 mg tablet Take 10 mg by mouth daily at bedtime. 2 Active Jardiance 10 mg tablet Take 10 mg by mouth daily. 2 Active gabapentin (NEURONTIN) 100 mg capsule TAKE 2 CAPSULES BY MOUTH TWICE DAILY 2 Active NovoLOG Flexpen U-100 Insulin 100 unit/mL (3 mL) pen syringe INJECT 5-6 UNITS SUBCUTANEOUSLY WITH MEALS 3 TIMES A DAY 2 Active lisinopril-hyd roCHLOROthiazi de (ZESTORETIC) 20-12.5 mg tablet Take 1 Tablet by mouth daily. 2 Active Levemir FlexTouch U-100 Insuln 100 unit/mL (3 mL) pen syringe INJECT 23 UNITS SUBCUTANEOUSLY ONCE DAILY 2 Active Janumet 50-1,000 mg tablet Take 1 Tablet by mouth 2 times daily. 2 Active gentamicin 0.1 % topical cream Apply to affected area daily. Active sulfamethoxazo le-trimethopri m (BACTRIM DS) 800-160 mg tablet Take 1 Tablet by mouth 2 times daily. Active Cholecalcifero l, Vitamin D3, 50 mcg (2,000 unit) Capsule Take 2,000 Units by mouth. Active lisinopriL (PRINIVIL) 20 mg tablet Take 20 mg by mouth daily. Active Family History Medical History Relation Name Comments Lung Cancer Father PATIENT ADOPTED Relation Name Status Comments Father Mother Social History Tobacco Use Types Packs/Day Years Used Date Smoking Tobacco: Never Tobacco Cessation:Counseling Given: Not Answered Alcohol Use Standard Drinks/Week Comments Not Asked 0 (1 standard drink = 0.6 oz pur e alcohol) ONE A MONTH Sex and Gender Information Value Date Recorded Sex Assigned at Not on file Legal Sex Male 4:05 PM CDT Gender Identity Not on file Sexual Orientation Not on file Last Filed Vital Signs Vital Sign Reading Time Taken Comments Blood Pressure 121/72 01/06/2023 10:00 AM CDT Pulse 71 01/06/2023 10:00 AM CDT Temperature 36.7 C (98.1 F) 01/06/2023 10:00 AM CDT Respiratory Rate 18 01/06/2023 10:0 0 AM CDT Oxygen Saturation - - Inhaled Oxygen Concentration - - Weight 105.9 kg (233 lb 6.4 oz) 023 10:00 AM CDT Height 188 cm (6' 2 ) 04/12/2022 9:00 AM CDT Body Mass Index 29.97 04/12/2022 9:00 AM CDT Plan of Treatment Health Maintenance Due Date Last Done Comments DTAP/TDAP/TD VACCINES (1 - Tdap) 1974 COLORECTAL SCREENING 2000 Colorectal Cancer Screening 2000 FIT-DNA Q 3 years 2000 FIT/FOBT Q 1 year 2000 Flex Sig/CT Colonography Q 5 years 2000 PNEUMOCOCCAL VACCINE 50+ YEARS (1 of 1 - PCV) 05/23/20 05 ZOSTER VACCINE (1 of 2) 2005 RSV VACCINE (60+ or ) (1 - Risk 60-74 years 1-dose series) 2015 INFLUENZA VACCINE (#1) [address] [place] [address] [employer] Care Teams Java J2Ee Software Engineer Relationship Specialty Start Date End Date Cami Ruiz MD [address] [place] [address] PCP - General Family Practice 03/08/22
--- OUTSIDE RECORDS SUMMARY | 2024-08-30 08:11 | XMS_ITS | Clinical Summary ---
Author Organization [facility] Address [address] [place] [id number] Care Team Providers Care Spark Tester Name Role Phone Unavailable Primary Care Provider Unavailabl e Social History Tobacco Use Types Packs/Day Years Used Date Smoking Tobacco: Never Assessed Sex and Gender Information Value Date Recorded Sex Assigned at Not on file Legal Sex Male 7:57 PM CDT Gender Identity Not on file Sexual Orientation Not on file Plan of Treatment Health Maintenance Due Date Last Done Comments Colorectal Cancer Screening Colonoscopy (10 Years) 1955 Hepatitis C 1973 DTaP, Tdap and Td Vaccines ( 1 - Tdap) 1974 Zoster Vaccines (1 of 2) 2005 Pneumococcal Vaccine: 65+ Ye ars (1 of 1 - PCV) 2020 COVID-19 Vaccine ( - 2023-2 5 season) 2024 Influenza Adult (#1) 2024 RSV Immunization or 60+ Years (1 - 1-dose 75+ series) 2030 Meningococcal B Vaccine Aged Out No l onger eligible based on patient's age to complete this topic Meningococcal Vaccine Aged Out No dom bill eligible based on patient's age to complete this topic RSV Immunizations Under 20 Months Aged Out No longer eligible based on patient's age to complete this topic
--- OUTSIDE RECORDS SUMMARY | 2024-08-30 08:11 | XMS_ITS | Encounter Summary ---
Author Organization [facility] Address [address] [place] [address] Care Team Providers Care Life Tester [employer] Name Role Phone Cami Ruiz MD Primary Care Provider Encounter Details Date Type Department Care Team (Late st Contact Info) Description 07/15/2022 Telephone [facility] [address] [address] [place] [id number] [place] [address] [place] [address] [place] [address] Social History Tobacco Use Types Packs/Day Years Used Date Smoking Tobacco: Never Alcohol Use Standard Drinks/Week Comments Not Asked 0 (1 standard drink = 0.6 oz pur e alcohol) ONE A MONTH Sex and Gender Information Value Date Recorded Sex Assigned at Not on file Legal Sex Male 4:05 PM CDT Gender Identity Not on file Sexual Orientation Not on file COVID-19 Exposure Response Date Recorded In the last 10 days, have yo u been in contact with someone who was confirmed or suspected to have Coronavirus/COVID-19? No / Unsure 07/02/2022 10:04 AM DEPORTATION OFFICER documented as of this encounter Plan of Treatment Not on file documented as of this encounter Visit Diagnoses Not on filedocumented in this encounter Care Teams Life Tester [employer] Relationship Specialty Start Date End Date Cami Ruiz MD [address] [place] [phone] PCP - General Family Practice 03/08/22 documented as of this encounter
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
--- OUTSIDE RECORDS SUMMARY | 2024-08-30 08:11 | XMS_ITS | Referral Summary ---
Author Organization [facility] [place] [address] [facility] [address] Address [address] [place] [address] Care Team Providers Care Childcare Administrator Name Role Phone Cami Ruiz MD Primary Care Provider Encounters Date Type Department Care Team Description 08/24/2024 10:30 AM CDT Orders Only [facility] [place] [facility] Office [facility] 2 Wound Care [address] [address] 08/10/2024 10:30 AM ROTARY FURNACE OPERATOR Orders Only [facility] [place] [facility] Office [facility] 2 Wound Care [address] [facility] [address] [place] [address] 07/27/2024 9:30 AM ROTARY FURNACE OPERATOR Orders Only [facility] [place] [facility] 2 Wound Care [address] [facility] [address] [place] [address] 07/15/2024 2:00 PM ROTARY FURNACE OPERATOR Orders Only [facility] 2 Wound Care [address] [address] 07/01/2024 10:45 AM ROTARY FURNACE OPERATOR Orders Only [facility] [place] [facility] Office [facility] 2 Wound Care [address] [address] 06/03/2024 11:00 AM ROTARY FURNACE OPERATOR Orders Only [facility] Office Building 2 Wound Care [address] [facility] [address] [place] [address] from Last 3 Months Allergies No known active allergies Medications Janumet [...] times a day 60 tablet/capsu le 07/01/19 25 025 Active Problems Problem Noted Date Diagnosed Date Cellulitis of left lower extremity 03/17/2024 PAD (peripheral artery disease) 03/03/2023 Assessment & Plan (04/17/2023 2:19 PM ROTARY FURNACE OPERATOR): No evidence of PVD. Continue ASA statin therapy. Essential hypertension 03/03/2023 Assessment & Plan (04/17/2023 2:19 PM ROTARY FURNACE OPERATOR): Stable continue amlodipine 5 mg. Type 2 diabetes mellitus wit h other circulatory complications 03/03/2023 Overview (03/03/2023): Jardiance, NovoLog Non-healing ulcer of left foot, with unspecified severity 03/03/2023 Overview (03/03/2023): Daily dressing changes to left foot, continue to follow with podiatry Hyperlipidemia 03/03/2023 Assessment & Plan (04/17/2023 2:18 PM ROTARY FURNACE OPERATOR): Stable continue Lipitor 10 mg. Immunizations Immunization Administration Dates Next Due Influenza, Quad, Adjuvantated, Intramuscular ,04/30/2021 Influenza, Split 02/23/2013 Influenza, Trivalent, High D ose, Split, Preservative Free, Intramuscular 03/19/2024 Influenza, Trivalent, IM (MDV) 03/14/2014 Social History Tobacco Use Types Packs/Day Years Used Date Smoking Tobacco: Never Passive Smoke Exposure: Never Smokeless Tobacco: Never Tobacco Cessation:Counseling Given: Not Answered Alcohol Use Standard Drinks/Week Comments Yes 0 (1 standard drink = 0.6 oz pur e alcohol) [employer] Answer Date Recorded In the past 12 months has [employer], [employer], [employer], or water [employer] threatened to shut off services in your [...] often do you attend chur ch or confucianist services? Never 03/17/2024 Do you belong to any clubs o r organizations such as taoist groups, unions, fraternal or athletic groups, or [...] any time in the past 12 m [facility], were you homeless or living in a half-way (including now)? No 03/17/2024 Personal Safety Answer Date Recorded Have you ever been in or are you currently in a harmful physical or emotional relationship or is someone making you feel afraid or unsafe? Denies 03/17/2024 Sex and Gender Information Value Date Recorded Sex Assigned at Not on file Legal Sex Male 2:48 AM ROTARY FURNACE OPERATOR Gender Identity Not on file Sexual Orientation [...] 03/17/2024 1:50 AM CDT Plan of Treatment Not on file Procedures Procedure Name Priority Date/Time Associated Diagnosis [...] and children were not included. (Diabetes Care 31:6645-7191, 2008). The eAG is not equivalent to a fasting glucose. Blood 03/18/2024 4:49 AM CDT 03/18/2024 5:04 AM CDT Kodi Keane MD LAB BLOOD ORDERABLES F inal Result OTILIA [address] [facility] Department [place] [address] * eGFR (03/17/2024 7:27 AM CDT) eGFR [...] of Race in Diagnosing Kidney Disease, JASN 2020). The CKD-EPI equation should not be used for patients with unstable renal function and has not been validated in children and those over 70. Current interpretive data was last reviewed 2021. Blood 03/17/2024 7:27 AM CDT 03/17/2024 8:02 AM CDT Andre Molina MD LAB BLOOD ORDERABLES Final Result Performing Organization Address City/State/[facility] Co tn Phone Number OTILIA [address] [facility] Department [place] [address] from Last 3 Months or Most Recently Relevant to Health Maintenance Insurance [facility] [id number] [facility] [id number] Advance Directives For more information, please contact: [phone] * Full Code (Latest Code Status on File) Date Activated Date Inactivated Comments 03/17/2024 2:12 AM 03/19/2024 4:03 PM Care Teams Childcare Administrator Relationship Specialty Start Date End Date Cami Ruiz MD [address] [facility] [place] [address] PCP - General Family Practice 06/24/23
[2024-08-30 14:53] LABS: Basophils Absolute Auto 0.1 K/mm3 (0.0-0.1); Basophils Percent Auto 0.9 % (0.2-1.2); Eosinophils Absolute Auto 0.2 K/mm3 (0-0.3); Hematocrit 45.5 % (42.0-52.0); Hemoglobin 14.1 g/dL (14.0-18.0); Immature Granulocyte Absolute 0.01 K/mm3 (0.00-0.031); Immature Granulocyte Percent A 0.2 % (0-0.5); Lymphocytes Percent Auto 28.1 % (18.3-44.2); Mean Corpuscular Hemoglobin 28.7 pg (26-34); Mean Corpuscular Volume 92.7 fl (80-100); Mean Platelet Volume 11.3 fl (7.4-10.4); Monocytes Absolute Auto 0.6 K/mm3 (0.1-0.6); Monocytes Percent Auto 10.5 % (2.6-8.5); Neutrophils Absolute Auto 3.2 K/mm3 (1.3-6.7); Neutrophils Percent Auto 56.3 % (45.5-73.1); Platelet Count Result 179 k/mm3 (150-375); Red Blood Count 4.91 M/mm3 (4.6-6.20); Red Cell Distribution Width 14.8 % (11.5-14.5); White Blood Count 5.7 K/mm3 (4.5-10.0)
[2024-08-30 15:09] LABS: Hemoglobin A1C 6.8 % (<5.7)
[2024-08-30 15:34] LABS: Alanine Aminotransferase 21 U/L (6-50); Alkaline Phosphatase 97 U/L (38-126); Anion Gap 9 mmol/L (4-12); Aspartate Amino Transferase 38 U/L (17-59); Bilirubin,Total 0.6 mg/dL (0.2-1.3); Blood Urea Nitrogen 20 mg/dL (9-20); Calcium 9.3 mg/dL (8.4-10.2); Carbon Dioxide 28 mmol/L (22-30); Chloride 105 mmol/L (98-107); Cholesterol 135 mg/dL (0-200); Estimated Glomerular Filt Rate 56; Glucose 130 mg/dL (65-110); HDL Direct 31 mg/dL; Potassium 4.5 mmol/L (3.4-5.0); Sodium 142 mmol/L (137-145); Triglycerides 212 mg/dL (<150)
[2024-08-30 15:45] LABS: LDL Cholesterol Direct 54 mg/dL
[2024-08-30 16:05] LABS: Prostate Specific Antigen 1.3 ng/mL (< OR = 4.0)
[2024-08-30 16:14] LABS: Creatinine Urine 81.2 mg/dL
[2024-08-30 16:31] LABS: Microalbumin Urine Random < 6.0 mg/L (0-16.7)
[2024-08-30 16:32] LABS: MALB Creatinine Ratio < 7.4 mg/g (0-30)
[2024-08-30 16:51] LABS: Vitamin D 25 Hydroxy 21.2 ng/mL
== END 2024-08-30 08:01 | disposition home or self-care (01) ==
LOC: ANHGOSHLAB 08:01
PROVIDERS: PCP Family Medicine; Visit Provider Family Medicine
DX: E11.9 Type 2 diabetes mellitus without complications (principal); I10 Essential (primary) hypertension; E78.5 Hyperlipidemia, unspecified; E53.8 Deficiency of other specified B group vitamins; E55.9 Vitamin D deficiency, unspecified; Z12.5 Encounter for screening for malignant neoplasm of prostate; Z00.00 Encounter for general adult medical examination without abnormal findings
CPT/HCPCS: 36415; 80053; 80061; 82043; 82306; 82607; 83036; 84153; 84443; 85025; G0103

== ENCOUNTER 2024-09-07 13:47 | Outpatient (RCR) | payer OTHER, SELFPAY ==
--- NOTE | 2024-09-07 14:52 | OPREHPOC ---
Outpatient Therapy Plan of Care This is a Multidisciplinary Plan of Care that may contain components documented by all disciplines (PT, OT, and ST.) PT Problem 1 PT Problem #1 Knowledge Deficit PT Goal 1 Goal / Goal Update [place] with HEP Target Visit 4 PT Goal 2 Goal / Goal Update Report 0% recurrence of thoracic pain Target Visit 4
--- NOTE | 2024-09-07 14:52 | PTOPEVAL1 ---
Assessment and note entered by Fantasma Mcgee, PT Evaluation Information Assessment Status Evaluation ICD-10 Condition Codes (PT) Pain in Thoracic Spine M54.6 Onset August 2024 Subjective Information Reports that he was having rib flaring pain in his thoracic spine but it is likely about 98% resolved. Pain increased with deep breathing and positioning. No trouble sleeping. He was taking regimien of muscle relaxers but has discharged use of those at this time. Reported Pain Level Pain Score 0: Self Report Assessment PT Clinical Summary Patient presents with history of thoracic pain which has since been reported as 98% resolved. Patient was educated on likelihood of functional diagnosis and given exercises to address. Patient demonstrated understanding at this time and will continue with regimen to improve spinal mobility and extremity stabilization to prevent injury recurrence. Will follow up as needed. Plan of Care Interventions Manual Therapy,Neuro Re-education,Therapeutic Activities,Therapeutic Exercise PT Services Indicated Yes Treatment Frequency and 1x/week for 4 weeks as needed Duration These treatments will address the objective and functional deficits as defined above. The patient will be advanced safely and appropriately in order for the patient to progress towards his/her prior level of function. Additional exercises will be introduced and as well as a comprehensive home exercise program upon discharge, if needed, ?to ensure carryover of functional gains achieved in the clinic. This treatment plan has been reviewed and agreement upon by the patient.
--- NOTE | 2024-10-05 08:53 | PTOPDC ---
Assessment and note entered by Fantasma Mcgee, PT Evaluation Information Assessment Status Discharge - Pt Not Present ICD-10 Condition Codes (PT) Pain in Thoracic Spine M54.6 Onset August 2024 Subjective Information Reports that he was having rib flaring pain in his thoracic spine but it is likely about 98% resolved. Pain increased with deep breathing and positioning. No trouble sleeping. He was taking regimien of muscle relaxers but has discharged use of those at this time. Assessment PT Clinical Summary Patient to be discharged at this time per patient request. Patient chart was held for one month per plan to assess patients need for therapy as he entered evaluation with symptoms resolution. Please refer to evaluation note for discharge status. Plan of Care PT Services Indicated Yes
== END 2024-10-05 09:39 | disposition home or self-care (01) ==
LOC: ANHGOSHPT 13:47
PROVIDERS: PCP Family Medicine; Visit Provider Family Medicine
DX: M54.6 Pain in thoracic spine (principal)
CPT/HCPCS: 97110; 97161

== ENCOUNTER 2024-10-05 14:37 | Emergency (ER) | payer OTHER, SELFPAY ==
[2024-10-05 14:45] VITALS: BP 122/67; PULSE 80; RESP 16; TEMP 36.1; O2SAT 97
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
== END 2024-10-05 15:13 | disposition home or self-care (01) ==
PROVIDERS: Emergency Provider Nurse Practitioner; PCP Family Medicine
DX: L03.116 Cellulitis of left lower limb (principal); L02.416 Cutaneous abscess of left lower limb; I12.9 Hypertensive chronic kidney disease with stage 1 through stage 4 chronic kidney disease, or unspecified chronic kidney disease; E11.22 Type 2 diabetes mellitus with diabetic chronic kidney disease; N18.30 Chronic kidney disease, stage 3 unspecified
CPT/HCPCS: 99213; G0463

== ENCOUNTER 2024-10-17 17:44 | Emergency (ER) | payer OTHER, SELFPAY ==
[2024-10-17 17:48] VITALS: BP 109/72; PULSE 118; RESP 20; TEMP 37; O2SAT 97
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
[2024-10-17] MEDS: cefTRIAXone 1 GM, LIDOCAINE 1% LOCAL INJ 2.1 ML IM (18:06)
== END 2024-10-17 18:12 | disposition home or self-care (01) ==
PROVIDERS: Emergency Provider Nurse Practitioner Family; PCP Family Medicine
DX: L03.116 Cellulitis of left lower limb (principal); I12.9 Hypertensive chronic kidney disease with stage 1 through stage 4 chronic kidney disease, or unspecified chronic kidney disease; E11.22 Type 2 diabetes mellitus with diabetic chronic kidney disease; N18.30 Chronic kidney disease, stage 3 unspecified; Z79.4 Long term (current) use of insulin; Z79.84 Long term (current) use of oral hypoglycemic drugs; E78.5 Hyperlipidemia, unspecified; E11.42 Type 2 diabetes mellitus with diabetic polyneuropathy; E11.610 Type 2 diabetes mellitus with diabetic neuropathic arthropathy; E55.9 Vitamin D deficiency, unspecified; Z79.82 Long term (current) use of aspirin
CPT/HCPCS: 96372; 99213; G0463; J0696; J2003

== ENCOUNTER 2024-12-17 15:15 | Inpatient (IN) | payer OTHER, SELFPAY ==
--- NOTE | ~2024-12-17 | XR_ITS ---
XR tibia fibula RT 2V Ordering provider: Rhonda Pérez History: . chronic wound, cellulitis . Comparison: None. FINDINGS: BONES: No acute fracture or dislocation. Bony protrusion is seen in the midshaft of the tibia most li leslee post traumatic. JOINT SPACES: Normal. SOFT TISSUES: Soft tissue swelling with fat stranding is seen medially and laterally opposite the mid and distal shaft of the tibia which may indicate cellulitis. IMPRESSION: No acute osseous abnormality right leg. Chronic bone changes in the midshaft of the tibia. Possible cellulitis opposite the mid and distal shaft of the right tibia medially and laterally. Reviewed, dictated and finalized at location A. IMPRESSION: No acute osseous abnormality right leg. Chronic bone changes in the midshaft of the tibia. Possible cellulitis opposite the mid and distal shaft of the right tibia medial ly and laterally.
--- NOTE | ~2024-12-17 | US_ITS ---
US venous doppler LE RT - 12/17/2024 16:55 CDT History: 69 years old Male with right lower extremity pain and swelling. Real-time sonographic images of the right lower extremity venous system were obtained. Color Doppler sonography and spectral waveform analysis were performed. No prior studies for comparison. The right sapheno-femoral junctions are patent. The right common femoral, superficial femoral, popl iteal and posterior tibial veins are compressible and without evidence of echogenic thrombus. Impression: No evidence of deep venous thrombosis Reviewed, dictated and finalized at location A. Impression: No evidence of deep venous thrombosis
--- OUTSIDE RECORDS SUMMARY | 2024-12-17 15:18 | XMS_ITS | Clinical Summary ---
Author Organization [facility] Address [address] [place] [id number] Care Team Providers Care Field Health Officer Name Role Phone Unavailable Primary Care Provider [...] Td Vaccines ( 1 - Tdap) 1974 Pneumococcal Vaccine: 50+ Ye ars (1 of 1 - PCV) 2005 Zoster Vaccines (1 of 2) 2005 COVID-19 Vaccine ( - 2023-2 5 season) 2024 RSV Immunization or 60+ Years (1 [...]
--- OUTSIDE RECORDS SUMMARY | 2024-12-17 15:18 | XMS_ITS | Encounter Summary ---
Author Organization [facility] Address [address] [place] [address] Care Team Providers Care Bakery Technician Name Role Phone Cami Ruiz MD Primary Care Provider Encounter Details Date Type Department Care Team (Late st Contact Info) Description 07/15/2022 Telephone [facility] [address] [address] [place] [id number] [place] [address] [place] [address] [place] [address] Social History Tobacco Use Types Packs/Day Years [...] Coronavirus/COVID-19? No / Unsure 07/02/2022 10:04 AM [employer] MA[employer] documented as of this encounter Plan of Treatment Not on file documented as of this encounter Visit Diagnoses Not on filedocumented in this encounter Care Teams Bakery Technician Relationship Specialty Start Date End Date Cami Ruiz MD [address] [place] [id number] PCP - General Family Practice 03/08/22 documented as of this encounter
--- OUTSIDE RECORDS SUMMARY | 2024-12-17 15:18 | XMS_ITS | Clinical Summary ---
Author Organization [facility] Address [address] [place] [address] Care Team Providers Care Health Education Director Name Role Phone Cami Ruiz MD Primary [...] 10:00 AM CDT Height 188 cm (6' 2) 04/12/2022 9:00 AM CDT Body Mass Index [...] years 1-dose series) 2015 INFLUENZA VACCINE (#1) [address] [place] [id number] [employer] Care Teams Health Education Director Relationship Specialty Start Date End Date Cami Ruiz MD [address] [place] [address] PCP - General Family Practice 03/08/22
[2024-12-17 15:27] VITALS: BP 114/58; PULSE 91; RESP 16; TEMP 36.6; O2SAT 95
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
[2024-12-17 16:42] LABS: Hematocrit 43.4 % (42.0-52.0); Hemoglobin 13.9 g/dL (14.0-18.0); Immature Granulocyte Percent A 0.5 % (0-0.5); Lymphocytes Absolute Auto 1.54 K/mm3 (0.9-3.2); Mean Corpuscular HGB Conc 32.0 g/dl (32-36); Mean Corpuscular Hemoglobin 28.8 pg (26-34); Mean Corpuscular Volume 89.9 fl (80-100); Nucleated Red Blood Cells Absolute Auto 0.000 K/mm3 (0.0-0.012); Nucleated Red Blood Cells Perc 0.0 % (0.0-0.2); Platelet Count Result 143 k/mm3 (150-375); Red Blood Count 4.83 M/mm3 (4.6-6.20); White Blood Count 13.9 K/mm3 (4.5-10.0)
[2024-12-17 16:56] LABS: INR 1.1; Prothrombin Time 14.3 Seconds (11.1-14.7)
[2024-12-17 16:57] LABS: Partial Thromboplastin Time 29.9 Seconds (22.3-36.8)
[2024-12-17 17:05] LABS: Alanine Aminotransferase 20 U/L (6-50); Albumin Level 4.1 g/dL (3.5-5.1); Alkaline Phosphatase 66 U/L (38-126); Anion Gap 11 mmol/L (4-12); Aspartate Amino Transferase 27 U/L (17-59); Bilirubin,Total 1.0 mg/dL (0.2-1.3); Blood Urea Nitrogen 20 mg/dL (9-20); Calcium 9.4 mg/dL (8.4-10.2); Carbon Dioxide 21 mmol/L (22-30); Chloride 104 mmol/L (98-107); Estimated CRCL calculation 48 ml/min; Estimated Glomerular Filt Rate 45; Glucose 139 mg/dL (65-110); Potassium 4.2 mmol/L (3.4-5.0); Sodium 136 mmol/L (137-145); Total Protein 7.6 g/dL (6.3-8.2)
[2024-12-17 17:16] LABS: CRP 17.4 mg/dL (<1.0)
--- OUTSIDE RECORDS SUMMARY | 2024-12-17 17:32 | XMS_ITS | Encounter Summary ---
Author Organization [facility] Healthcare Address [address] [place] [address] Care Team Providers Care Skylights Assembler Name Role Phone Cami Ruiz MD Primary Care Provider Encounter Details Date Type Department Care Team (Late st Contact Info) Description 12/16/2024 3:00 PM CDT Orders Only [facility] Medical Office Building 2 Wound Care [address] [place] [address] Social History Tobacco Use Types Packs/Day Years Used Date Smoking Tobacco: Never Passive Smoke Exposure: Never Smokeless Tobacco: Never Alcohol Use Standard Drinks/Week Comments Yes 0 (1 standard drink = 0.6 oz pur e alcohol) [facility] Utilities Answer Date Recorded In the past 12 months has [employer] electric, gas, oil, or water company threatened to shut off services in your [...] often do you attend chur ch or protestant services? Never 03/17/2024 Do you belong to any clubs o r organizations such as jain groups, unions, fraternal or athletic groups, or [...] any time in the past 12 m [facility], were you homeless or living in a retirement (including now)? No 03/17/2024 Personal Safety Answer Date Recorded Have you ever been in or are you currently in a harmful physical or emotional relationship or is someone making you feel afraid or unsafe? Denies 03/17/2024 Sex and Gender Information Value Date Recorded Sex Assigned at Not on file Legal Sex Male 2:48 AM HEALTH PROFESSIONAL Gender Identity Not on file Sexual Orientation Not on file documented as of this encounter Plan of Treatment Not on file documented as of this encounter Visit Diagnoses Not on filedocumented in this encounter Care Teams Skylights Assembler Relationship Specialty Start Date End Date Cami Ruiz MD [address] [place] [address] [place] [address] PCP - General Family Practice 06/24/23 documented as of this encounter
--- OUTSIDE RECORDS SUMMARY | 2024-12-17 17:32 | XMS_ITS | Clinical Summary ---
Author Organization [facility] Address [address] [place] [address] Care Team Providers Care Tobacco Sampler Name Role Phone Unavailable Primary Care Provider [...]
--- OUTSIDE RECORDS SUMMARY | 2024-12-17 17:32 | XMS_ITS | Clinical Summary ---
Author Organization [facility] [address] Address [address] [place] [address] Care Team Providers Care Net Mender Name Role Phone Cami Ruiz MD Primary [...] TABLET BY MOUTH ONCE DAILY 2 Active NovoLOG 100 unit/mL (3 mL) pen [...] BLOOD SUGAR 3-4 TIMES DAILY: ACCU-CHECK TESSA 3 Active LANTUS 100 unit/mL (3 mL) pen for injection 23 Units nightly 4 Active sulfamethoxazo le-trimethopri m (BACTRIM DS) 800-160 mg per tablet Take 1 tablet by mouth 2 (two) times a day smx-tmp DS (BACTRIM) 800-160 mg tabs 60 tablet 5 025 Active Active Problems Problem Noted Date Diagnosed Date Cellulitis of left lower extremity 03/17/2024 PAD (peripheral artery disease) 03/03/2023 Assessment & Plan (04/17/2023 2:19 PM PANEL MAKER): No evidence of PVD. Continue ASA statin therapy. Essential hypertension 03/03/2023 Assessment & Plan (04/17/2023 2:19 PM PANEL MAKER): Stable continue amlodipine 5 mg. Type 2 diabetes mellitus wit h other circulatory complications 03/03/2023 Overview (03/03/2023): Yoon Briggs Non-healing ulcer of left foot, with unspecified severity 03/03/2023 Overview (03/03/2023): Daily dressing changes to left foot, continue to follow with podiatry Hyperlipidemia 03/03/2023 Assessment & Plan (04/17/2023 2:18 PM PANEL MAKER): Stable continue Lipitor 10 mg. Encounters Date Type Department Care Team Description 12/16/2024 3:00 PM CDT Orders Only [facility] Office Building 2 Wound Care [address] [place] [address] 12/02/2024 1:30 PM CDT Orders Only [facility] Office Building 2 Wound Care [address] [place] [address] 11/25/2024 1:15 PM CDT Orders Only [facility] Office Building 2 Wound Care [address] [facility] [address] [place] [address] 11/11/2024 1:00 PM CDT Orders Only [facility] Office Building 2 Wound Care [address] [address] 10/21/2024 8:45 AM CDT Orders Only [facility] Office Building 2 Wound Care [address] [facility] [address] [facility] [address] [place] [address] 10/05/2024 9:30 AM CDT Orders Only [facility] Office Building 2 Wound Care [address] [address] [place] [address] 09/21/2024 9:15 AM CDT Orders Only [facility] Office Building 2 Wound Care [address] [place] [address] from Last 3 Months Immunizations Immunization Administration [...] drink = 0.6 oz pur e alcohol) [facility] Utilities Answer Date Recorded In the past 12 months has [employer], gas, oil, or water [employer] threatened to shut off services in your [...] often do you attend chur ch or restorationist services? Never 03/17/2024 Do you belong to any clubs o r organizations such as buddhism groups, unions, fraternal or athletic groups, or [...] any time in the past 12 m [facility], were you homeless or living in a retirement (including now)? No 03/17/2024 Personal Safety Answer Date Recorded Have you ever been in or are you currently in a harmful physical or emotional relationship or is someone making you feel afraid or unsafe? Denies 03/17/2024 Sex and Gender Information Value Date Recorded Sex Assigned at Not on file Legal Sex Male 2:48 AM PANEL MAKER Gender Identity Not on file Sexual Orientation [...] 1:50 AM CDT Height 188 cm (6' 2) 03/17/2024 1:50 AM CDT Body Mass Index [...] 04/30/2021, 08/15/2020 Hemoglobin A1C 09/16/2024 03/18/2024, 08/07/2023 Influenza Vaccine (#1) 2025 , 03/08/2022, 04/30/2021, Additional history exists eGFR 03/17/2025 03/17/2024, 1001/2024, 08/07/2023 Fall Risk Assessment 03/19/2025 03/19/2024 Procedures Procedure Name Priority Date/Time Associated Diagnosis [...] and children were not included. (Diabetes Care 31:[id number], 2008). The eAG is not equivalent to a fasting glucose. Blood 03/18/2024 4:49 AM CDT 03/18/2024 5:04 AM CDT us Kodi Keane MD LAB BLOOD ORDERABLES F inal Result OTILIA [address] [facility] [facility] [place] [address] * eGFR (03/17/2024 7:27 AM CDT) eGFR [...] BLOOD ORDERABLES Final Result Performing Organization Address City/State/[facility] Co de Phone Number CERNER [facility] [address] [facility] [place] [address] from Last 3 Months or Most Recently Relevant to Health Maintenance Insurance [facility] [id number] [facility] [id number] Advance Directives For more information, please contact: [phone] * Full Code (Latest Code Status on File) Date Activated Date Inactivated Comments 03/17/2024 2:12 AM 03/19/2024 4:03 PM Care Teams Net Mender Relationship Specialty Start Date End Date Cami Ruiz MD [address] [place] [address] [place] [address] PCP - General Family Practice 06/24/23
--- OUTSIDE RECORDS SUMMARY | 2024-12-17 17:32 | XMS_ITS | Clinical Summary ---
Author Organization [employer] [facility] Address [address] [place] [address] Care Team Providers Care Learning Support Specialist Name Role Phone Cami Ruiz MD Primary [...] VACCINE (#1) [address] [place] [address] [employer] BENEFITS Care Teams Learning Support Specialist Relationship Specialty Start Date End Date Cami Ruiz MD [address] [place] [address] PCP - General Family Practice 03/08/22
--- OUTSIDE RECORDS SUMMARY | 2024-12-17 17:32 | XMS_ITS | Encounter Summary ---
Author Organization [employer] Address [address] [place] [address] Care Team Providers Care Shadowgraph Scale Operator Name Role Phone Cami Ruiz MD Primary Care Provider Encounter Details Date Type Department Care Team (Late st Contact Info) Description 07/15/2022 Telephone [facility] [address] [address] [place] [id number] [place] [address] [place] [address] [place] [address] Social History Tobacco Use Types Packs/Day Years [...] Coronavirus/COVID-19? No / Unsure 07/02/2022 10:04 AM BUSINESS BANKING SALES ASSISTANT documented as of this encounter Plan of Treatment Not on file documented as of this encounter Visit Diagnoses Not on filedocumented in this encounter Care Teams Shadowgraph Scale Operator Relationship Specialty Start Date End Date Cami Ruiz MD [address] [place] [phone] PCP - General Family Practice 03/08/22 documented as of this encounter
--- OUTSIDE RECORDS SUMMARY | 2024-12-17 17:32 | XMS_ITS | Referral Summary ---
Author Organization [facility] [place] [address] [facility] [address] [place] [address] Care Team Providers Care Parks And Recreation Worker Name Role Phone Cami Ruiz MD Primary Care Provider Encounters Date Type Department Care Team Description 12/16/2024 3:00 PM CDT Orders Only [facility] Office Building 2 Wound Care [address] [place] [address] 12/02/2024 1:30 PM CDT Orders Only [facility] Office Building 2 Wound Care [address] [place] [address] 11/25/2024 1:15 PM CDT Orders Only [facility] Office Building 2 Wound Care [address] [facility] [address] [place] [address] 11/11/2024 1:00 PM CDT Orders Only [facility] Office Building 2 Wound Care [address] [place] [address] 10/21/2024 8:45 AM CDT Orders Only [facility] Office Building 2 Wound Care [address] [place] [address] 10/05/2024 9:30 AM CDT Orders Only [facility] Office Building 2 Wound Care [address] [facility] [address] [place] [address] 09/21/2024 9:15 AM CDT Orders Only [facility] Office Building 2 Wound Care [address] [place] [address] from Last 3 Months Allergies No known [...] 03/03/2023 Assessment & Plan (04/17/2023 2:19 PM SERVICE UNIT OPERATOR OIL WELL): No evidence of PVD. Continue ASA statin therapy. Essential hypertension 03/03/2023 Assessment & Plan (04/17/2023 2:19 PM SERVICE UNIT OPERATOR OIL WELL): Stable continue amlodipine 5 mg. Type 2 diabetes mellitus wit h other circulatory complications 03/03/2023 Overview (03/03/2023): Yoon Briggs Non-healing ulcer of left foot, with unspecified severity 03/03/2023 Overview (03/03/2023): Daily dressing changes to left foot, continue to follow with podiatry Hyperlipidemia 03/03/2023 Assessment & Plan (04/17/2023 2:18 PM SERVICE UNIT OPERATOR OIL WELL): Stable continue Lipitor 10 mg. Immunizations Immunization [...] drink = 0.6 oz pur e alcohol) [place] Utilities Answer Date Recorded In the past 12 months has e [employer] Coding, gas, oil, or water [place] threatened to shut off services in your [...] often do you attend chur ch or tenriism services? Never 03/17/2024 Do you belong to any clubs o r organizations such as mu-ism groups, unions, fraternal or athletic groups, or [...] any time in the past 12 m [facility], were you homeless or living in a [facility] (including now)? No 03/17/2024 Personal Safety Answer Date Recorded Have you ever been in or are you currently in a harmful physical or emotional relationship or is someone making you feel afraid or unsafe? Denies 03/17/2024 Sex and Gender Information Value Date Recorded Sex Assigned at Not on file Legal Sex Male 2:48 AM SERVICE UNIT OPERATOR OIL WELL Gender Identity Not on file Sexual Orientation [...] and children were not included. (Diabetes Care [id number], 2008). The eAG is not equivalent to a fasting glucose. Blood 03/18/2024 4:49 AM CDT 03/18/2024 5:04 AM CDT us Kodi Keane MD LAB BLOOD ORDERABLES F inal Result [facility] [address] Department of Laboratories [place], [place] [id number] * eGFR (03/17/2024 7:27 AM CDT) eGFR [...] Molina MD LAB BLOOD ORDERABLES Final Result [facility] [address] Department [place] [address] from Last 3 Months or Most Recently Relevant to Health Maintenance Insurance [facility] [id number] [facility] [id number] Advance Directives For more information, please contact: [phone] * Full Code (Latest Code Status on File) Date Activated Date Inactivated Comments 03/17/2024 2:12 AM 03/19/2024 4:03 PM Care Teams Parks And Recreation Worker Relationship Specialty Start Date End Date Cami Ruiz MD [facility] [facility] [address] [facility] [place] [address] PCP - General Family Practice 06/24/23
[2024-12-17] MEDS: metroNIDAZOLE 500 MG/ISO 100ML 500 MG/100 ML BAG 100 MG IVPB (18:45)
[2024-12-17 19:14] VITALS: BP 119/57; PULSE 76; RESP 16; TEMP 36.6; O2SAT 97
[2024-12-17] MEDS: CEFEPIME 2 GM in SODIUM CHLORIDE 0.9% IV 50 ML 100 ML IVPB (19:47)
[2024-12-17] MEDS: VANCOMYCIN 1,250 MG/NS 250 ML 1,250 MG/250 ML BAG 166.67 MG IVPB ×2 (20:21→22:09)
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
[2024-12-17] MEDS: SODIUM CHLORIDE 0.9% IV 1,000 ML 999 ML IV CONT (21:22)
--- NOTE | 2024-12-17 21:48 | ADMGEN ---
This patient, Manjeet Vinson, was admitted to 3 Med Surg Room 314-02. Patient/family oriented to hospital policies and general routines including ID bracelet, bed and alarms, visiting hours, pain management, procedures, bathroom and other care routines, personal items, smoking policy, room service/diet, and visiting hours. Information on how to activate the Rapid Response Team has been discussed. Patient/Family are encouraged to report perceived risks to care and to ask questions if they do not understand what they are told or what they should do.
[2024-12-17 21:55] VITALS: BMI 28.9
[2024-12-17 22:00] VITALS: BP 138/68; PULSE 73; RESP 16; TEMP 36.5; O2SAT 97
[2024-12-18] MEDS: metroNIDAZOLE 500 MG/ISO 100ML 500 MG/100 ML BAG 100 MG IVPB ×3 (02:45→19:13)
[2024-12-18 05:55] LABS: Hematocrit 38.9 % (42.0-52.0); Hemoglobin 12.1 g/dL (14.0-18.0); Immature Granulocyte Percent A 0.5 % (0-0.5); Immature Platelet Fraction Pct 2.7 % (0.9-11.2); Lymphocytes Absolute Auto 0.98 K/mm3 (0.9-3.2); Mean Corpuscular HGB Conc 31.1 g/dl (32-36); Mean Corpuscular Hemoglobin 28.6 pg (26-34); Mean Corpuscular Volume 92.0 fl (80-100); Nucleated Red Blood Cells Absolute Auto 0.000 K/mm3 (0.0-0.012); Nucleated Red Blood Cells Perc 0.0 % (0.0-0.2); Platelet Count Result 115 k/mm3 (150-375); Red Blood Count 4.23 M/mm3 (4.6-6.20); White Blood Count 8.0 K/mm3 (4.5-10.0)
[2024-12-18 06:00] VITALS: BP 115/58; PULSE 75; RESP 16; TEMP 36.6; O2SAT 93
[2024-12-18 06:13] LABS: Anion Gap 9 mmol/L (4-12); Blood Urea Nitrogen 19 mg/dL (9-20); Calcium 8.8 mg/dL (8.4-10.2); Carbon Dioxide 19 mmol/L (22-30); Chloride 107 mmol/L (98-107); Estimated CRCL calculation 59 ml/min; Estimated Glomerular Filt Rate 58; Glucose 127 mg/dL (65-110); Magnesium 2.0 mg/dL (1.6-2.3); Potassium 4.0 mmol/L (3.4-5.0); Sodium 135 mmol/L (137-145)
[2024-12-18] MEDS: EMPAGLIFLOZIN 10 MG TABLET PO (08:44)
[2024-12-18] MEDS: ASPIRIN 81 MG CHEWABLE TABLET PO (08:44)
[2024-12-18] MEDS: GABAPENTIN 100 MG CAPSULE 200 MG PO ×2 (08:44→16:59)
[2024-12-18] MEDS: CEFEPIME 1 GM in SODIUM CHLORIDE 0.9% IV 50 ML 100 ML IVPB ×2 (08:57→20:43)
[2024-12-18] MEDS: ENOXAPARIN 40 MG/0.4 ML SYRINGE SUB-Q (08:57)
[2024-12-18 14:00] VITALS: BP 112/61; PULSE 70; RESP 24; TEMP 36.4; O2SAT 98
--- NOTE | 2024-12-18 17:04 | PM.IMPN ---
Progress Note: A&P Assessment and Plan (1) IDDM (insulin dependent diabetes mellitus): Status: Acute (2) Cellulitis of leg: Code(s): L03.119 - Cellulitis of unspecified part of limb Status: Acute Plan Continue Accu-Cheks a.c. HS and insulin sliding scale. Continue his nightly Lantus dosing. Continue cefepime metronidazole and vancomycin. Continue to follow blood cultures. Asked nurse to rocky the borders of the erythema with surgical marker. Full code. Saline lock IV. Diabetic diet Subjective Date/time seen: 12/18/24 17:04 Interval history: No major acute overnight events. Patient does not know if the redness has improved he has not looked. Denies any pain or fever. Review of Systems Review of Systems: All systems reviewed & are unremarkable except as noted in HPI and below (Subjective) Exam Const: General: comfortable and no acute distress Other: Erythema right lower extremity from the knee to ankle. Edema at the dorsum of the foot and above the scarring at the mid lake HENMT: Mouth: Yes moist mucous membranes Eyes: Pupils: Equal, round and reactive pupils present Neck: Neck: supple Resp: Effort & Inspection: normal respiratory effort Auscultation: clear to auscultation bilaterally Cardio: Rate: regular rate Rhythm: regular rhythm GI: GI Palp: Yes Soft to palpation Extrem: General: edema Objective Data Vital Signs Vital Signs: Vital Signs - 24 hr 12/17/24 19:14 12/17/24 22:00 12/17/24 22:00 Temperature 97.9 F 97.7 F Pulse Rate 76 73 73 Respiratory Rate 16 16 16 Blood Pressure 119/57 L 138/68 Pulse Oximetry 97 97 97 Oxygen Delivery Room Air 12/18/24 06:00 12/18/24 14:00 Temperature 97.9 F 97.6 F Pulse Rate 75 70 Respiratory Rate 16 24 H Blood Pressure 115/58 L 112/61 Pulse Oximetry 93 98 Oxygen Delivery Intake/Output Intake/Output: Intake & Output 12/15/24 12/16/24 12/17/24 12/18/24 23:59 23:59 23:59 23:59 Intake Total 1650 1262 Balance 1650 1262 Meds/Results Medications: Active Medications Generic Name Dose Route Start Last Admin Trade Name Freq PRN Reason Stop Dose Admin Acetaminophen 650 mg 12/17/24 20:50 Acetaminophen 325 Mg Tablet PO Q6H PRN Mild Pain (1-3) or Fever Aspirin 81 mg 12/18/24 09:00 12/18/24 08:44 Aspirin 81 Mg Chewable Tablet PO 81 mg DAILY LUDIN Administration Atorvastatin Calcium 10 mg 12/18/24 21:00 Atorvastatin 10 Mg Tablet BY MOUTH HS LUDIN Collagenase 1 applic 12/18/24 21:00 Collagenase Oint 30 Gm Tube TOPICAL QHS LUDIN Dextrose 12.5 gm 12/17/24 20:50 Dextrose 50% 25 Gm/50 Ml Syringe IV PUSH PRN PRN Hypoglycemia Protocol Empagliflozin 10 mg 12/18/24 09:00 12/18/24 08:44 Empagliflozin 10 Mg Tablet PO 10 mg DAILY LUDIN Administration Enoxaparin Sodium 40 mg 12/18/24 09:00 12/18/24 08:57 Enoxaparin 40 Mg/0.4 Ml Syringe SUB-Q 40 mg DAILY LUDIN Administration Gabapentin 200 mg 12/18/24 09:00 12/18/24 16:59 Gabapentin 100 Mg Capsule PO 200 mg BID LUDIN Administration Glucagon 1 mg 12/17/24 20:50 Glucagon For Inj 1 Mg Vial IM PRN PRN Hypoglycemia Protocol Glucose 15 gm 12/17/24 20:50 Glucose Oral Gel 15 Gm Of Glucse In 37.5 Gm Tube PO PRN PRN Hypoglycemia Protocol Metronidazole 500 mg in 100 mls @ 100 mls/hr 12/18/24 03:00 12/18/24 12:51 Flagyl 500 Mg/Iso Soln 100 Ml IVPB Infused Q8H [facility] Infusion Cefepime HCl 1 gm/ Sodium 50 mls @ 100 mls/hr 12/18/24 08:00 12/18/24 09:27 Chloride IVPB Infused Q12H [facility] Infusion Dextrose 1,000 mls @ 100 mls/hr 12/17/24 20:50 Dextrose 5% 1,000 Ml IVPB PRN PRN Hypoglycemia Protocol Vancomycin HCl 1,500 mg in 500 mls @ 250 mls/hr 12/18/24 20:00 Vancomycin 1,500 Mg/Ns 500 Ml IVPB Q24H [facility] Insulin Aspart 3 - 6 units 12/18/24 08:00 12/18/24 16:56 Insulin Aspart (*Bkc) 100 Units/Ml SUB-Q Not Given TIDWM [facility] Protocol Insulin Aspart 1 - 3 units 12/17/24 21:00 12/17/24 21:35 Insulin Aspart (*Bkc) 100 Units/Ml SUB-Q Not Given HS [facility] Protocol Lisinopril 20 mg 12/18/24 09:00 12/18/24 08:44 Lisinopril 20 Mg Tablet PO 20 mg DAILY LDUIN Administration Miscellaneous Information 0 each 12/18/24 05:40 12/18/24 06:23 Collagenase Oint 30 Gm Tube- Please Indicate Application Site: XX 01/17/25 05:39 Not Given CLARIFY LUDIN Sitagliptin Phosphate 100 mg 12/18/24 09:00 12/18/24 08:44 Sitagliptin Phosphate 100 Mg Tablet PO 100 mg QAM LUDIN Administration Radiology Results: ITS Impressions Venous Doppler Study 12/17/24 16:55 Impression: No evidence of deep venous thrombosis Tibia/Fibula X-Ray 12/17/24 17:15 IMPRESSION: No acute osseous abnormality right leg. Chronic bone changes in the midshaft of the tibia. Possible cellulitis opposite the mid and distal shaft of the right tibia medially and laterally. Labs Labs: Laboratory Results - last 24 hr 12/17/24 12/17/24 12/18/24 16:23 19:16 05:35 WBC 8.0 RBC 4.23 L Hgb 12.1 L Hct 38.9 L MCV 92.0 MCH 28.6 MCHC 31.1 L RDW 15.7 H Plt Count 115 L MPV 10.7 H Immature Gran % (Auto) 0.5 Neut % (Auto) 77.0 H Lymph % (Auto) 12.2 L Morrill % (Auto) 8.5 Eos % (Auto) 1.4 Baso % (Auto) 0.4 Lymph # (Auto) 0.98 Morrill # (Auto) 0.7 H Eos # (Auto) 0.1 Baso # (Auto) 0.0 Abs Immat Gran (auto) 0.04 H Absolute Neuts (auto) 6.2 Absolute Nucleated RBC 0.000 Nucleated RBC % 0.0 % Immature Plt Fraction 2.7 ESR 16 Sodium 136 L 135 L Potassium 4.2 4.0 Chloride 104 107 Carbon Dioxide 21 L 19 L Anion Gap 11 9 BUN 20 19 Creatinine 1.53 H 1.23 Estim Creat Clear Calc 48 59 Estimated GFR 45 L 58 L Glucose 139 H 127 H POC Capillary Glucose 118 H Calcium 9.4 8.8 Magnesium 2.0 Total Bilirubin 1.0 AST 27 ALT 20 Alkaline Phosphatase 66 C-Reactive Protein 17.4 H Total Protein 7.6 Albumin 4.1 12/18/24 12/18/24 12/18/24 07:43 12:19 16:10 WBC RBC Hgb Hct MCV MCH MCHC RDW Plt Count MPV Immature Gran % (Auto) Neut % (Auto) Lymph % (Auto) Morrill % (Auto) Eos % (Auto) Baso % (Auto) Lymph # (Auto) Morrill # (Auto) Eos # (Auto) Baso # (Auto) Abs Immat Gran (auto) Absolute Neuts (auto) Absolute Nucleated RBC Nucleated RBC % % Immature Plt Fraction ESR Sodium Potassium Chloride Carbon Dioxide Anion Gap BUN Creatinine Estim Creat Clear Calc Estimated GFR Glucose POC Capillary Glucose 139 H 145 H 137 H Calcium Magnesium Total Bilirubin AST ALT Alkaline Phosphatase C-Reactive Protein Total Protein Albumin
[2024-12-18] MEDS: ATORVASTATIN 10 MG TABLET BY MOUTH (20:45)
[2024-12-18] MEDS: INSULIN GLARGINE (*BKC) 100 UNITS/ML 23 UNITS SUB-Q (20:51)
[2024-12-18] MEDS: COLLAGENASE OINT 30 GM TUBE 1 APPLIC TOPICAL (20:52)
[2024-12-18] MEDS: VANCOMYCIN 1,500 MG/NS 500 ML 1,500 MG/500 ML BAG 250 MG IVPB (21:31)
[2024-12-18 22:00] VITALS: BP 101/58; PULSE 64; RESP 16; TEMP 36.8; O2SAT 98
[2024-12-19] MEDS: metroNIDAZOLE 500 MG/ISO 100ML 500 MG/100 ML BAG 100 MG IVPB ×3 (02:52→18:04)
[2024-12-19 06:00] VITALS: BP 111/62; PULSE 66; RESP 16; TEMP 37.1; O2SAT 98
[2024-12-19 06:37] LABS: Hematocrit 39.5 % (42.0-52.0); Hemoglobin 12.3 g/dL (14.0-18.0); Immature Granulocyte Percent A 0.4 % (0-0.5); Immature Platelet Fraction Pct 4.0 % (0.9-11.2); Lymphocytes Absolute Auto 1.13 K/mm3 (0.9-3.2); Mean Corpuscular HGB Conc 31.1 g/dl (32-36); Mean Corpuscular Hemoglobin 28.7 pg (26-34); Mean Corpuscular Volume 92.3 fl (80-100); Nucleated Red Blood Cells Absolute Auto 0.000 K/mm3 (0.0-0.012); Nucleated Red Blood Cells Perc 0.0 % (0.0-0.2); Platelet Count Result 122 k/mm3 (150-375); Red Blood Count 4.28 M/mm3 (4.6-6.20); White Blood Count 7.3 K/mm3 (4.5-10.0)
[2024-12-19 06:58] LABS: Anion Gap 8 mmol/L (4-12); Blood Urea Nitrogen 18 mg/dL (9-20); Calcium 8.9 mg/dL (8.4-10.2); Carbon Dioxide 24 mmol/L (22-30); Chloride 104 mmol/L (98-107); Estimated CRCL calculation 60 ml/min; Estimated Glomerular Filt Rate 60; Glucose 112 mg/dL (65-110); Magnesium 2.1 mg/dL (1.6-2.3); Potassium 4.0 mmol/L (3.4-5.0); Sodium 136 mmol/L (137-145)
[2024-12-19] MEDS: CEFEPIME 1 GM in SODIUM CHLORIDE 0.9% IV 50 ML 100 ML IVPB ×2 (09:31→20:28)
[2024-12-19] MEDS: GABAPENTIN 100 MG CAPSULE 200 MG PO ×2 (09:32→16:16)
[2024-12-19] MEDS: ENOXAPARIN 40 MG/0.4 ML SYRINGE SUB-Q (09:32)
[2024-12-19] MEDS: ASPIRIN 81 MG CHEWABLE TABLET PO (09:32)
[2024-12-19] MEDS: EMPAGLIFLOZIN 10 MG TABLET PO (09:32)
--- NOTE | 2024-12-19 13:05 | P.PNIM_ITS ---
Progress Note: A&P Assessment and Plan (1) IDDM (insulin dependent diabetes mellitus): Status: Acute (2) Cellulitis of leg: Code(s): L03.119 - Cellulitis of unspecified part of limb Status: Acute Plan Continue Accu-Cheks a.c. HS and insulin sliding scale. Continue his nightly Lantus dosing. Continue cefepime metronidazole and vancomycin. Continue to follow blood cultures. Erythema improving. About 30%. Full code. Saline lock IV. Diabetic diet Subjective Date/time seen: 12/19/24 13:05 Interval history: Patient has no complaints. No pain no itching. Believes his redness is Review of Systems Review of Systems: All systems reviewed & are unremarkable except as noted in HPI and below (Subjective) Exam Const: General: comfortable and no acute distress Other: Erythema right lower extremity from the knee to ankle. Edema at the dorsum of the foot and above the scarring at the [place] 12/19/2024: Right lower extremity Eryth ann-marie improved. Slightly warm compared to left lower extremity HENMT: Mouth: Yes moist mucous membranes Eyes: Pupils: Equal, round and reactive pupils present Neck: Neck: supple Resp: Effort & Inspection: normal respiratory effort Auscultation: clear to auscultation bilaterally Cardio: Rate: regular rate Rhythm: regular rhythm GI: GI Palp: Yes Soft to palpation Extrem: General: no edema Objective Data Vital Signs Vital Signs: Vital Signs - 24 hr 12/18/24 14:00 12/18/24 20:52 12/18/24 22:00 Temperature 97.6 F 98.3 F Pulse Rate 70 64 Respiratory Rate 24 H 16 Blood Pressure 112/61 101/58 L Pulse Oximetry 98 98 Oxygen Delivery Room Air 12/19/24 06:00 12/19/24 08:00 Temperature 98.8 F Pulse Rate 66 Respiratory Rate 16 Blood Pressure 111/62 Pulse Oximetry 98 Oxygen Delivery Room Air Intake/Output Intake/Output: Intake & Output 12/16/24 12/17/24 12/18/24 12/19/24 23:59 23:59 23:59 23:59 Intake Total 1650 2152 820 Balance 1650 2152 820 Meds/Results Medications: Active Medications Generic Name Dose Route Start Last Admin Trade Name Freq PRN Reason Stop Dose Admin Acetaminophen 650 mg 12/17/24 20:50 Acetaminophen 325 Mg Tablet PO Q6H PRN Mild Pain (1-3) or Fever Aspirin 81 mg 12/18/24 09:00 12/19/24 09:32 Aspirin 81 Mg Chewable Tablet PO 81 mg DAILY LUDIN Administration Atorvastatin Calcium 10 mg 12/18/24 21:00 12/18/24 20:45 Atorvastatin 10 Mg Tablet BY MOUTH 10 mg HS LUDIN Administration Collagenase 1 applic 12/18/24 21:00 12/18/24 20:52 Collagenase Oint 30 Gm Tube TOPICAL 1 applic QHS LUDIN Administration Dextrose 12.5 gm 12/17/24 20:50 Dextrose 50% 25 Gm/50 Ml Syringe IV PUSH PRN PRN Hypoglycemia Protocol Empagliflozin 10 mg 12/18/24 09:00 12/19/24 09:32 Empagliflozin 10 Mg Tablet PO 10 mg DAILY LUDIN Administration Enoxaparin Sodium 40 mg 12/18/24 09:00 12/19/24 09:32 Enoxaparin 40 Mg/0.4 Ml Syringe SUB-Q 40 mg DAILY LUDIN Administration Gabapentin 200 mg 12/18/24 09:00 12/19/24 09:32 Gabapentin 100 Mg Capsule PO 200 mg BID LUDIN Administration Glucagon 1 mg 12/17/24 20:50 Glucagon For Inj 1 Mg Vial IM PRN PRN Hypoglycemia Protocol Glucose 15 gm 12/17/24 20:50 Glucose Oral Gel 15 Gm Of Glucse In 37.5 Gm Tube PO PRN PRN Hypoglycemia Protocol Metronidazole 500 mg in 100 mls @ 100 mls/hr 12/18/24 03:00 12/19/24 11:06 Flagyl 500 Mg/Iso Soln 100 Ml IVPB 100 mls/hr Q8H LUDIN Administration Cefepime HCl 1 gm/ Sodium 50 mls @ 100 mls/hr 12/18/24 08:00 12/19/24 10:01 Chloride IVPB Infused Q12H LUDIN Infusion Dextrose 1,000 mls @ 100 mls/hr 12/17/24 20:50 Dextrose 5% 1,000 Ml IVPB PRN PRN Hypoglycemia Protocol Vancomycin HCl 1,500 mg in 500 mls @ 250 mls/hr 12/18/24 20:00 12/18/24 23:31 Vancomycin 1,500 Mg/Ns 500 Ml IVPB Infused Q24H LUDIN Infusion Insulin Aspart 3 - 6 units 12/18/24 08:00 12/19/24 12:08 Insulin Aspart (*Bkc) 100 Units/Ml SUB-Q Not Given TID[facility] Protocol Insulin Aspart 1 - 3 units 12/17/24 21:00 12/18/24 20:51 Insulin Aspart (*Bkc) 100 Units/Ml SUB-Q Not Given HS [facility] Protocol Insulin Glargine 23 units 12/18/24 21:00 12/18/24 20:51 Insulin Glargine (*Bkc) 100 Units/Ml SUB-Q 23 units HS LUDIN Administration Lisinopril 20 mg 12/18/24 09:00 12/19/24 09:32 Lisinopril 20 Mg Tablet PO 20 mg DAILY LUDIN Administration Sitagliptin Phosphate 100 mg 12/18/24 09:00 12/19/24 09:32 Sitagliptin Phosphate 100 Mg Tablet PO 100 mg QAM LUDIN Administration Radiology Results: ITS Impressions Venous Doppler Study 12/17/24 16:55 Impression: No evidence of deep venous thrombosis Tibia/Fibula X-Ray 12/17/24 17:15 IMPRESSION: No acute osseous abnormality right leg. Chronic bone changes in the midshaft of the tibia. Possible cellulitis opposite the mid and distal shaft of the right tibia medially and laterally. Labs Labs: Laboratory Results - last 24 hr 12/18/24 12/18/24 12/19/24 16:10 19:52 05:50 WBC 7.3 RBC 4.28 L Hgb 12.3 L Hct 39.5 L MCV 92.3 MCH 28.7 MCHC 31.1 L RDW 15.8 H Plt Count 122 L MPV 10.9 H Immature Gran % (Auto) 0.4 Neut % (Auto) 71.9 Lymph % (Auto) 15.6 L [place] % (Auto) 8.5 Eos % (Auto) 2.9 Baso % (Auto) 0.7 Lymph # (Auto) 1.13 [place] # (Auto) 0.6 Eos # (Auto) 0.2 Baso # (Auto) 0.1 Abs Immat Gran (auto) 0.03 Absolute Neuts (auto) 5.2 Absolute Nucleated RBC 0.000 Nucleated RBC % 0.0 % Immature Plt Fraction 4.0 Sodium 136 L Potassium 4.0 Chloride 104 Carbon Dioxide 24 Anion Gap 8 BUN 18 Creatinine 1.20 Estim Creat Clear Calc 60 Estimated GFR 60 Glucose 112 H POC Capillary Glucose 137 H 146 H Calcium 8.9 Magnesium 2.1 12/19/24 12/19/24 07:56 11:48 WBC RBC Hgb Hct MCV MCH MCHC RDW Plt Count MPV Immature Gran % (Auto) Neut % (Auto) Lymph % (Auto) [place] % (Auto) Eos % (Auto) Baso % (Auto) Lymph # (Auto) [place] # (Auto) Eos # (Auto) Baso # (Auto) Abs Immat Gran (auto) Absolute Neuts (auto) Absolute Nucleated RBC Nucleated RBC % % Immature Plt Fraction Sodium Potassium Chloride Carbon Dioxide Anion Gap BUN Creatinine Estim Creat Clear Calc Estimated GFR Glucose POC Capillary Glucose 109 H 175 H Calcium Magnesium
[2024-12-19 14:00] VITALS: BP 124/83; PULSE 60; RESP 18; TEMP 36.7; O2SAT 100
[2024-12-19] MEDS: ATORVASTATIN 10 MG TABLET BY MOUTH (20:34)
[2024-12-19] MEDS: COLLAGENASE OINT 30 GM TUBE 1 APPLIC TOPICAL (20:36)
[2024-12-19] MEDS: INSULIN GLARGINE (*BKC) 100 UNITS/ML 23 UNITS SUB-Q (20:39)
[2024-12-19] MEDS: VANCOMYCIN 1,500 MG/NS 500 ML 1,500 MG/500 ML BAG 250 MG IVPB (21:03)
[2024-12-19 22:00] VITALS: BP 146/80; PULSE 58; RESP 16; TEMP 36.2; O2SAT 100
[2024-12-20] MEDS: metroNIDAZOLE 500 MG/ISO 100ML 500 MG/100 ML BAG 100 MG IVPB ×2 (03:14→12:00)
[2024-12-20 06:00] VITALS: BP 141/77; PULSE 60; RESP 18; TEMP 36.4; O2SAT 98
[2024-12-20 08:50] LABS: Estimated CRCL calculation 68 ml/min; Estimated Glomerular Filt Rate > 60
[2024-12-20] MEDS: CEFEPIME 1 GM in SODIUM CHLORIDE 0.9% IV 50 ML 100 ML IVPB (09:16)
[2024-12-20] MEDS: ENOXAPARIN 40 MG/0.4 ML SYRINGE SUB-Q (09:16)
[2024-12-20] MEDS: ASPIRIN 81 MG CHEWABLE TABLET PO (09:16)
[2024-12-20] MEDS: EMPAGLIFLOZIN 10 MG TABLET PO (09:16)
[2024-12-20] MEDS: GABAPENTIN 100 MG CAPSULE 200 MG PO ×2 (09:16→16:46)
[2024-12-20] MEDS: VANCOMYCIN 1,500 MG/NS 500 ML 1,500 MG/500 ML BAG 200 MG IVPB (09:56)
--- NOTE | 2024-12-20 11:52 | PM.IMPN ---
Progress Note: A&P Assessment and Plan (1) IDDM (insulin dependent diabetes mellitus): Status: Acute (2) Cellulitis of leg: Code(s): L03.119 - Cellulitis of unspecified part of limb Status: Acute Plan Type 2 diabetes Continue Accu-Cheks a.c. HS and insulin sliding scale. Continue his nightly Lantus dosing. Right leg cellulitis Continue cefepime metronidazole and vancomycin. Continue to follow blood cultures. Erythema improving. Changed to ceftriaxone IV today Full code. Saline lock IV. Diabetic diet Subjective Date/time seen: 12/20/24 11:52 Interval history: I saw exam patient today, patient feels better, still has pain swelling and erythema of the right lower extremity Exam Narrative: GENERAL: Pleasant, in no acute distress. Well-nourished. - EYES: EOMI. Anicteric. - HENT: Moist mucous membranes. - LUNGS: Clear to auscultation bilaterally, no wheezing, rhonchi, or rales. - CARDIOVASCULAR: Regular rate and rhythm. No murmur. No JVD. - ABDOMEN: Soft, non-tender and non-distended. No palpable masses. - EXTREMITIES: No edema. Peripheral pulses 2+. Non-tender. - NEUROLOGIC: No focal neurological deficits. CN II-XII grossly intact. - PSYCHIATRIC: Awake, Alert and oriented x 3. Appropriate mood and affect. - SKIN: Redness, swelling, erythema of right lower extremity - LYMPH: No cervical lymphadenopathy. Objective Data Vital Signs Vital Signs: Vital Signs - 24 hr 12/19/24 14:00 12/19/24 20:28 12/19/24 22:00 Temperature 98.0 F 97.1 F L Pulse Rate 60 58 L Respiratory Rate 18 16 Blood Pressure 124/83 146/80 H Pulse Oximetry 100 100 Oxygen Delivery Room Air 12/20/24 06:00 12/20/24 08:00 Temperature 97.5 F L Pulse Rate 60 Respiratory Rate 18 Blood Pressure 141/77 H Pulse Oximetry 98 Oxygen Delivery Room Air Intake/Output Intake/Output: Intake & Output 12/17/24 12/18/24 12/19/24 12/20/24 23:59 23:59 23:59 23:59 Intake Total 16490 Balance 16490 Meds/Results Medications: Active Medications Generic Name Dose Route Start Last Admin Trade Name Freq PRN Reason Stop Dose Admin Acetaminophen 650 mg 12/17/24 20:50 Acetaminophen 325 Mg Tablet PO Q6H PRN Mild Pain (1-3) or Fever Aspirin 81 mg 12/18/24 09:00 12/20/24 09:16 Aspirin 81 Mg Chewable Tablet PO 81 mg DAILY LUDIN Administration Atorvastatin Calcium 10 mg 12/18/24 21:00 12/19/24 20:34 Atorvastatin 10 Mg Tablet BY MOUTH 10 mg HS LUDIN Administration Collagenase 1 applic 12/18/24 21:00 12/19/24 20:36 Collagenase Oint 30 Gm Tube TOPICAL 1 applic QHS LUDIN Administration Dextrose 12.5 gm 12/17/24 20:50 Dextrose 50% 25 Gm/50 Ml Syringe IV PUSH PRN PRN Hypoglycemia Protocol Empagliflozin 10 mg 12/18/24 09:00 12/20/24 09:16 Empagliflozin 10 Mg Tablet PO 10 mg DAILY LUDIN Administration Enoxaparin Sodium 40 mg 12/18/24 09:00 12/20/24 09:16 Enoxaparin 40 Mg/0.4 Ml Syringe SUB-Q 40 mg DAILY LUDIN Administration Gabapentin 200 mg 12/18/24 09:00 12/20/24 09:16 Gabapentin 100 Mg Capsule PO 200 mg BID LUDIN Administration Glucagon 1 mg 12/17/24 20:50 Glucagon For Inj 1 Mg Vial IM PRN PRN Hypoglycemia Protocol Glucose 15 gm 12/17/24 20:50 Glucose Oral Gel 15 Gm Of Glucse In 37.5 Gm Tube PO PRN PRN Hypoglycemia Protocol Metronidazole 500 mg in 100 mls @ 100 mls/hr 12/18/24 03:00 12/20/24 04:15 Flagyl 500 Mg/Iso Soln 100 Ml IVPB Infused Q8H LUDIN Infusion Cefepime HCl 1 gm/ Sodium 50 mls @ 100 mls/hr 12/18/24 08:00 12/20/24 09:16 Chloride IVPB 100 mls/hr Q12H LUDIN Administration Dextrose 1,000 mls @ 100 mls/hr 12/17/24 20:50 Dextrose 5% 1,000 Ml IVPB PRN PRN Hypoglycemia Protocol Vancomycin HCl 1,500 mg in 500 mls @ 250 mls/hr 12/19/24 20:00 12/20/24 09:56 Vancomycin 1,500 Mg/Ns 500 Ml IVPB 200 mls/hr Q12H LUDIN Administration Insulin Aspart 3 - 6 units 12/18/24 08:00 12/20/24 09:16 Insulin Aspart (*Bkc) 100 Units/Ml SUB-Q Not Given TID[facility] Protocol Insulin Aspart 1 - 3 units 12/17/24 21:00 12/19/24 20:40 Insulin Aspart (*Bkc) 100 Units/Ml SUB-Q Not Given HS [facility] Protocol Insulin Glargine 23 units 12/18/24 21:00 12/19/24 20:39 Insulin Glargine (*Bkc) 100 Units/Ml SUB-Q 23 units HS LUDIN Administration Lisinopril 20 mg 12/18/24 09:00 12/20/24 09:16 Lisinopril 20 Mg Tablet PO 20 mg DAILY LUDIN Administration Sitagliptin Phosphate 100 mg 12/18/24 09:00 12/20/24 09:16 Sitagliptin Phosphate 100 Mg Tablet PO 100 mg QAM LUDIN Administration Radiology Results: ITS Impressions Venous Doppler Study 12/17/24 16:55 Impression: No evidence of deep venous thrombosis Tibia/Fibula X-Ray 12/17/24 17:15 IMPRESSION: No acute osseous abnormality right leg. Chronic bone changes in the midshaft of the tibia. Possible cellulitis opposite the mid and distal shaft of the right tibia medially and laterally. Labs Labs: Laboratory Results - last 24 hr 12/19/24 12/19/24 12/19/24 11:48 16:40 18:51 Creatinine Estim Creat Clear Calc Estimated GFR POC Capillary Glucose 175 H 118 H Vancomycin Trough 8.1 L 12/19/24 12/20/24 12/20/24 20:25 07:19 07:31 Creatinine 1.05 Estim Creat Clear Calc 68 Estimated GFR > 60 POC Capillary Glucose 148 H 101 Vancomycin Trough 12/20/24 11:18 Creatinine Estim Creat Clear Calc Estimated GFR POC Capillary Glucose 118 H Vancomycin Trough
[2024-12-20 12:35] LABS: Hematocrit 39.3 % (42.0-52.0); Hemoglobin 12.3 g/dL (14.0-18.0); Immature Platelet Fraction Pct 4.4 % (0.9-11.2); Mean Corpuscular HGB Conc 31.3 g/dl (32-36); Mean Corpuscular Hemoglobin 28.5 pg (26-34); Mean Corpuscular Volume 91.2 fl (80-100); Platelet Count Result 140 k/mm3 (150-375); Red Blood Count 4.31 M/mm3 (4.6-6.20); White Blood Count 4.9 K/mm3 (4.5-10.0)
[2024-12-20 12:48] LABS: Anion Gap 7 mmol/L (4-12); Blood Urea Nitrogen 16 mg/dL (9-20); Calcium 8.9 mg/dL (8.4-10.2); Carbon Dioxide 22 mmol/L (22-30); Chloride 107 mmol/L (98-107); Estimated CRCL calculation 69 ml/min; Estimated Glomerular Filt Rate > 60; Glucose 97 mg/dL (65-110); Potassium 3.8 mmol/L (3.4-5.0); Sodium 136 mmol/L (137-145)
[2024-12-20 14:00] VITALS: BP 106/64; PULSE 60; RESP 18; TEMP 36.3; O2SAT 95
[2024-12-20 20:05] VITALS: BP 126/74; PULSE 64; RESP 18; TEMP 36.3; O2SAT 99
[2024-12-20] MEDS: COLLAGENASE OINT 30 GM TUBE 1 APPLIC TOPICAL (20:39)
[2024-12-20] MEDS: ATORVASTATIN 10 MG TABLET BY MOUTH (20:39)
[2024-12-20] MEDS: INSULIN GLARGINE (*BKC) 100 UNITS/ML 23 UNITS SUB-Q (20:40)
[2024-12-20] MEDS: cefTRIAXone 2 GM in SODIUM CHLORIDE 0.9% IV 100 ML 200 ML IVPB (20:42)
[2024-12-21 04:50] VITALS: BP 132/74; PULSE 60; RESP 20; TEMP 35.8; O2SAT 98
[2024-12-21] MEDS: GABAPENTIN 100 MG CAPSULE 200 MG PO ×2 (08:20→16:24)
[2024-12-21] MEDS: ASPIRIN 81 MG CHEWABLE TABLET PO (08:20)
[2024-12-21] MEDS: EMPAGLIFLOZIN 10 MG TABLET PO (08:20)
[2024-12-21] MEDS: ENOXAPARIN 40 MG/0.4 ML SYRINGE SUB-Q (08:23)
--- NOTE | 2024-12-21 10:35 | PM.IMPN ---
Progress Note: A&P Assessment and Plan (1) IDDM (insulin dependent diabetes mellitus): Status: Acute (2) Cellulitis of leg: Code(s): L03.119 - Cellulitis of unspecified part of limb Status: Acute Plan Type 2 diabetes Continue Accu-Cheks a.c. HS and insulin sliding scale. Continue his nightly Lantus dosing. Right leg cellulitis Continue cefepime metronidazole and vancomycin. Continue to follow blood cultures. Erythema improving. Changed to ceftriaxone IV 12/20 Continue ceftriaxone IV today, may change to oral antibiotic today tomorrow and discharge patient Full code. Saline lock IV. Diabetic diet Subjective Date/time seen: 12/21/24 10:35 Interval history: I saw exam patient today, patient feels better, still has pain swelling and erythema of the right lower extremity, the cellulitis has improved significantly Exam Narrative: GENERAL: Pleasant, in no acute distress. Well-nourished. - EYES: EOMI. Anicteric. - HENT: Moist mucous membranes. - LUNGS: Clear to auscultation bilaterally, no wheezing, rhonchi, or rales. - CARDIOVASCULAR: Regular rate and rhythm. No murmur. No JVD. - ABDOMEN: Soft, non-tender and non-distended. No palpable masses. - EXTREMITIES: No edema. Peripheral pulses 2+. Non-tender. - NEUROLOGIC: No focal neurological deficits. CN II-XII grossly intact. - PSYCHIATRIC: Awake, Alert and oriented x 3. Appropriate mood and affect. - SKIN: Redness, swelling, erythema of right lower extremity - LYMPH: No cervical lymphadenopathy. Objective Data Vital Signs Vital Signs: Vital Signs - 24 hr 12/20/24 14:00 12/20/24 20:05 12/20/24 20:39 Temperature 97.4 F L 97.4 F L Pulse Rate 60 64 Respiratory Rate 18 18 Blood Pressure 106/64 126/74 Pulse Oximetry 95 99 Oxygen Delivery Room Air 12/21/24 04:50 12/21/24 08:00 Temperature 96.4 F L Pulse Rate 60 Respiratory Rate 20 Blood Pressure 132/74 Pulse Oximetry 98 Oxygen Delivery Room Air Intake/Output Intake/Output: Intake & Output 12/18/24 12/19/24 12/20/24 12/21/24 23:59 23:59 23:59 23:59 Intake Total 2152 1990 2490 890 Balance 21510 890 Meds/Results Medications: Active Medications Generic Name Dose Route Start Last Admin Trade Name Freq PRN Reason Stop Dose Admin Acetaminophen 650 mg 12/17/24 20:50 Acetaminophen 325 Mg Tablet PO Q6H PRN Mild Pain (1-3) or Fever Aspirin 81 mg 12/18/24 09:00 12/21/24 08:20 Aspirin 81 Mg Chewable Tablet PO 81 mg DAILY LUDIN Administration Atorvastatin Calcium 10 mg 12/18/24 21:00 12/20/24 20:39 Atorvastatin 10 Mg Tablet BY MOUTH 10 mg HS LUDIN Administration Collagenase 1 applic 12/18/24 21:00 12/20/24 20:39 Collagenase Oint 30 Gm Tube TOPICAL 1 applic QHS LUDIN Administration Dextrose 12.5 gm 12/17/24 20:50 Dextrose 50% 25 Gm/50 Ml Syringe IV PUSH PRN PRN Hypoglycemia Protocol Empagliflozin 10 mg 12/18/24 09:00 12/21/24 08:20 Empagliflozin 10 Mg Tablet PO 10 mg DAILY LUDIN Administration Enoxaparin Sodium 40 mg 12/18/24 09:00 12/21/24 08:23 Enoxaparin 40 Mg/0.4 Ml Syringe SUB-Q 40 mg DAILY LUDIN Administration Gabapentin 200 mg 12/18/24 09:00 12/21/24 08:20 Gabapentin 100 Mg Capsule PO 200 mg BID LUDIN Administration Glucagon 1 mg 12/17/24 20:50 Glucagon For Inj 1 Mg Vial IM PRN PRN Hypoglycemia Protocol Glucose 15 gm 12/17/24 20:50 Glucose Oral Gel 15 Gm Of Glucse In 37.5 Gm Tube PO PRN PRN Hypoglycemia Protocol Dextrose 1,000 mls @ 100 mls/hr 12/17/24 20:50 Dextrose 5% 1,000 Ml IVPB PRN PRN Hypoglycemia Protocol Ceftriaxone Sodium 2 gm/ 100 mls @ 200 mls/hr 12/20/24 21:00 12/20/24 21:12 Sodium Chloride IVPB Infused Q24H LUDIN Infusion Insulin Aspart 3 - 6 units 12/18/24 08:00 12/21/24 08:21 Insulin Aspart (*Bkc) 100 Units/Ml SUB-Q Not Given TID[facility] Protocol Insulin Aspart 1 - 3 units 12/17/24 21:00 12/20/24 20:39 Insulin Aspart (*Bkc) 100 Units/Ml SUB-Q Not Given HS [facility] Protocol Insulin Glargine 23 units 12/18/24 21:00 12/20/24 20:40 Insulin Glargine (*Bkc) 100 Units/Ml SUB-Q 23 units HS [facility] Administration Lisinopril 20 mg 12/18/24 09:00 12/21/24 08:20 Lisinopril 20 Mg Tablet PO 20 mg DAILY LUDIN Administration Sitagliptin Phosphate 100 mg 12/18/24 09:00 12/21/24 08:20 Sitagliptin Phosphate 100 Mg Tablet PO 100 mg QAM LUDIN Administration Radiology Results: ITS Impressions Venous Doppler Study 12/17/24 16:55 Impression: No evidence of deep venous thrombosis Tibia/Fibula X-Ray 12/17/24 17:15 IMPRESSION: No acute osseous abnormality right leg. Chronic bone changes in the midshaft of the tibia. Possible cellulitis opposite the mid and distal shaft of the right tibia medially and laterally. Labs Labs: Laboratory Results - last 24 hr 12/20/24 12/20/24 12/20/24 07:18 11:18 16:41 WBC 4.9 RBC 4.31 L Hgb 12.3 L Hct 39.3 L MCV 91.2 MCH 28.5 MCHC 31.3 L RDW 15.4 H Plt Count 140 L MPV 11.2 H % Immature Plt Fraction 4.4 Sodium 136 L Potassium 3.8 Chloride 107 Carbon Dioxide 22 Anion Gap 7 BUN 16 Creatinine 1.04 Estim Creat Clear Calc 69 Estimated GFR > 60 Glucose 97 POC Capillary Glucose 118 H 167 H Calcium 8.9 12/20/24 12/21/24 20:07 07:52 WBC RBC Hgb Hct MCV MCH MCHC RDW Plt Count MPV % Immature Plt Fraction Sodium Potassium Chloride Carbon Dioxide Anion Gap BUN Creatinine Estim Creat Clear Calc Estimated GFR Glucose POC Capillary Glucose 105 109 H Calcium
[2024-12-21 14:00] VITALS: BP 134/73; PULSE 62; RESP 18; TEMP 36.1; O2SAT 99
[2024-12-21 20:00] VITALS: PULSE 55; RESP 24; O2SAT 98
[2024-12-21] MEDS: cefTRIAXone 2 GM in SODIUM CHLORIDE 0.9% IV 100 ML 200 ML IVPB (20:45)
[2024-12-21] MEDS: ATORVASTATIN 10 MG TABLET BY MOUTH (20:45)
[2024-12-21] MEDS: COLLAGENASE OINT 30 GM TUBE 1 APPLIC TOPICAL (20:46)
[2024-12-21] MEDS: INSULIN GLARGINE (*BKC) 100 UNITS/ML 23 UNITS SUB-Q (20:50)
[2024-12-21 21:23] VITALS: BP 116/68; PULSE 55; RESP 24; TEMP 36.4; O2SAT 98
[2024-12-22 06:00] VITALS: BP 116/66; PULSE 60; RESP 24; TEMP 36.4; O2SAT 98
[2024-12-22] MEDS: EMPAGLIFLOZIN 10 MG TABLET PO (09:28)
[2024-12-22] MEDS: GABAPENTIN 100 MG CAPSULE 200 MG PO (09:29)
[2024-12-22] MEDS: ENOXAPARIN 40 MG/0.4 ML SYRINGE SUB-Q (09:29)
[2024-12-22] MEDS: ASPIRIN 81 MG CHEWABLE TABLET PO (09:29)
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
== END 2024-12-22 13:12 | disposition home or self-care (01) | DRG 603 ==
LOC: ANHED 17:30 → ANH3MEDSUR 19:24
PROVIDERS: General Practice; Hospitalist; Physician Assistant; Admitting Provider Internal Medicine; Emergency Provider Physician Assistant; PCP Family Medicine; Visit Provider Physician Assistant
DX: L03.115 Cellulitis of right lower limb (principal); N17.9 Acute kidney failure, unspecified; L97.819 Non-pressure chronic ulcer of other part of right lower leg with unspecified severity; E11.621 Type 2 diabetes mellitus with foot ulcer; L97.529 Non-pressure chronic ulcer of other part of left foot with unspecified severity; E11.42 Type 2 diabetes mellitus with diabetic polyneuropathy; E11.22 Type 2 diabetes mellitus with diabetic chronic kidney disease; I12.9 Hypertensive chronic kidney disease with stage 1 through stage 4 chronic kidney disease, or unspecified chronic kidney disease; E11.610 Type 2 diabetes mellitus with diabetic neuropathic arthropathy; N18.30 Chronic kidney disease, stage 3 unspecified; E78.5 Hyperlipidemia, unspecified; D69.6 Thrombocytopenia, unspecified; E53.8 Deficiency of other specified B group vitamins; E55.9 Vitamin D deficiency, unspecified; Z79.4 Long term (current) use of insulin; Z79.82 Long term (current) use of aspirin; Z79.84 Long term (current) use of oral hypoglycemic drugs; Z79.899 Other long term (current) drug therapy
CPT/HCPCS: 36415; 73590; 80048; 80053; 80202; 82565; 82948; 83605; 83735; 85025; 85027; 85055; 85610; 85652; 85730; 86140; 87040; 93971; 96365; 96366; 96367; 96372; 96376; 99285; A9270; G0378; J0692; J0696; J1650; J1815; J1836; J3373; J7030

== ENCOUNTER 2025-02-28 09:56 | Outpatient (CLI) | payer OTHER, SELFPAY ==
--- OUTSIDE RECORDS SUMMARY | 2025-02-28 11:01 | XMS_ITS | Encounter Summary ---
Author Organization [facility] Address [address] [place] [address] Care Team Providers Care Tailercpa Name Role Phone Cami Ruiz MD Primary Care Provider Encounter Details Date Type Department Care Team (Late st Contact Info) Description 07/15/2022 Telephone [facility] [address] [address] [place] [id number] [place] [address] [place] [address] [place] [address] Social History Tobacco Use Types Packs/Day Years [...] Coronavirus/COVID-19? No / Unsure 07/02/2022 10:04 AM WEAPONS AND TACTICS INSTRUCTOR documented as of this encounter Plan of Treatment Not on file documented as of this encounter Visit Diagnoses Not on filedocumented in this encounter Care Teams Tailercpa Relationship Specialty Start Date End Date Cami Ruiz MD [address] [place] [id number] PCP - General Family Practice 03/08/22 documented as of this encounter
--- OUTSIDE RECORDS SUMMARY | 2025-02-28 11:01 | XMS_ITS | Clinical Summary ---
Author Organization [facility] Address [address] [place] [address] Care Team Providers Care Mobile Electronics Installer Name Role Phone Cami Ruiz MD Primary [...] 1-dose series) 2015 INFLUENZA VACCINE (#1) 2025 Care Teams Mobile Electronics Installer Relationship Specialty Start Date End Date Cami Ruiz MD [address] [place] [address] PCP - General Family Practice 03/08/22
--- OUTSIDE RECORDS SUMMARY | 2025-02-28 11:01 | XMS_ITS | Clinical Summary ---
Author Organization [facility] Address [address] [place] [address] Care Team Providers Care Screw Machine Tool Setter Name Role Phone Unavailable Primary Care Provider [...] Vaccines (1 of 2) 2005 COVID-19 Vaccine (1 - 2023-2 5 season) 2025 RSV Immunization or 60+ Years (1 - [...]
[2025-02-28 13:06] LABS: Alanine Aminotransferase 21 U/L (6-50); Albumin Level 4.0 g/dL (3.5-5.1); Alkaline Phosphatase 95 U/L (38-126); Anion Gap 9 mmol/L (4-12); Aspartate Amino Transferase 37 U/L (17-59); Bilirubin,Total 0.5 mg/dL (0.2-1.3); Blood Urea Nitrogen 21 mg/dL (9-20); Calcium 9.3 mg/dL (8.4-10.2); Carbon Dioxide 25 mmol/L (22-30); Chloride 106 mmol/L (98-107); Estimated Glomerular Filt Rate 57; Glucose 154 mg/dL (65-110); Potassium 4.1 mmol/L (3.4-5.0); Sodium 140 mmol/L (137-145); Total Protein 7.1 g/dL (6.3-8.2)
[2025-02-28 13:49] LABS: Hematocrit 45.1 % (42.0-52.0); Hemoglobin 13.9 g/dL (14.0-18.0); Immature Granulocyte Percent A 0.2 % (0-0.5); Lymphocytes Absolute Auto 1.30 K/mm3 (0.9-3.2); Mean Corpuscular HGB Conc 30.8 g/dl (32-36); Mean Corpuscular Hemoglobin 28.7 pg (26-34); Mean Corpuscular Volume 93.0 fl (80-100); Nucleated Red Blood Cells Absolute Auto 0.000 K/mm3 (0.0-0.012); Nucleated Red Blood Cells Perc 0.0 % (0.0-0.2); Platelet Count Result 170 k/mm3 (150-375); Red Blood Count 4.85 M/mm3 (4.6-6.20); White Blood Count 5.2 K/mm3 (4.5-10.0)
[2025-02-28 15:09] LABS: Hemoglobin A1C 7.1 % (<5.7)
== END 2025-02-28 09:57 | disposition home or self-care (01) ==
LOC: ANHGOSHLAB 09:57
PROVIDERS: PCP Family Medicine; Visit Provider Family Medicine
DX: E11.9 Type 2 diabetes mellitus without complications (principal); Z00.00 Encounter for general adult medical examination without abnormal findings; I10 Essential (primary) hypertension
CPT/HCPCS: 36415; 80053; 83036; 85025

== ENCOUNTER 2025-05-18 16:16 | Emergency (ER) | payer OTHER, SELFPAY ==
--- NOTE | ~2025-05-18 | US_ITS ---
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 Findings: Deep Venous System:Normal flow, augmentation and compressibility. No echogenic thrombus identified. The contralateral saphenofemoral junction appears unremarkable. Superficial Venous SystemNo superficial thrombophlebitis. Soft tissues: Soft tissues are unremarkable. Impression: Negative for DVT. Reviewed, dictated and finalized at location P. LOADER Impression: Negative for DVT.
[2025-05-18 16:26] VITALS: BP 155/84; PULSE 72; RESP 16; TEMP 36.4; O2SAT 100
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
--- OUTSIDE RECORDS SUMMARY | 2025-05-18 20:55 | XMS_ITS | Encounter Summary ---
Author Organization [employer] Address [address] [place] [address] Care Team Providers Care Cartridge Feeder Name Role Phone Cami Ruiz MD Primary Care Provider Encounter Details Date Type Department Care Team (Late st Contact Info) Description 07/15/2022 Telephone [facility] [address] [address] [place] [phone] [place] [address] [place] [address] [place] [address] Social History Tobacco Use Types Packs/Day Years [...] Coronavirus/COVID-19? No / Unsure 07/02/2022 10:04 AM PARBOILER documented as of this encounter Plan of Treatment Not on file documented as of this encounter Visit Diagnoses Not on filedocumented in this encounter Care Teams Cartridge Feeder Relationship Specialty Start Date End Date Cami Ruiz MD [address] [place] [phone] PCP - General Family Practice 03/08/22 documented as of this encounter
--- OUTSIDE RECORDS SUMMARY | 2025-05-18 20:55 | XMS_ITS | Clinical Summary ---
Author Organization [facility] [address] Address [address] [place] [address] Care Team Providers Care Continuous Linter Drier Operator Name Role Phone Cami Ruiz MD [...] for injection 23 Units nightly 4 Active doxycycline (VIBRAMYCIN) 100 mg capsule Take 1 tablet/capsule (100 mg total) by mouth 2 (two) times a day 60 tablet/capsu le 5 025 Active methylPREDNISo lone (MEDROL DOSEPACK) 4 mg Dosepack Take 1 tablet (4 mg total) by mouth daily Take as directed on package 1 packet 5 Active Active Problems Problem Noted Date Diagnosed Date Cellulitis of left lower extremity 03/17/2024 PAD (peripheral artery disease) 03/03/2023 Assessment & Plan (04/17/2023 2:19 PM TROUBLE CLERK): No evidence of PVD. Continue ASA statin therapy. Essential hypertension 03/03/2023 Assessment & Plan (04/17/2023 2:19 PM TROUBLE CLERK): Stable continue amlodipine 5 mg. Type 2 diabetes mellitus wit h other circulatory complications 03/03/2023 Overview (03/03/2023): Yoon Briggs Non-healing ulcer of left foot, with unspecified severity 03/03/2023 Overview (03/03/2023): Daily dressing changes to left foot, continue to follow with podiatry Hyperlipidemia 03/03/2023 Assessment & Plan (04/17/2023 2:18 PM TROUBLE CLERK): Stable continue Lipitor 10 mg. Encounters Date Type Department Care Team Description 05/10/2025 1:15 PM TROUBLE CLERK Orders Only [facility] Office Building 2 Wound Care [address] [place] [address] 05/02/2025 11:30 AM TROUBLE CLERK Orders Only [facility] [address] [place] [address] 04/25/2025 9:30 AM TROUBLE CLERK Orders Only [facility] Care [address] [place] [address] 02/21/2025 9:15 AM CDT Orders Only [facility] Building 2 Wound Care [address] [place] [address] from Last 3 Months Immunizations Immunization Administration [...] Comments Hypertension Hypertension Hyperlipidemia Hyperlipidemia Diabetes mellitus Diabetes Family History Medical History Relation Name [...] drink = 0.6 oz pur e alcohol) [facility] Utilities Answer Date Recorded In the past 12 months has [employer], gas, oil, or water [employer] threatened to shut off services in your home? No 03/17/2024 Social Connection and Isolation Panel Answer Date Recorded In a typical week, how many times do you talk on the phone with family, friends, or neighbors? More than three times a week 03/17/2024 How often do you get togethe r with friends or relatives? More than three times a week 03/17/2024 How often do you attend chur ch or confucianism services? Never 03/17/2024 Do you belong to any clubs o r organizations such as yazidism groups, unions, fraternal or athletic groups, or [...] any time in the past 12 m [facility], were you homeless or living in a [facility] (including now)? No 03/17/2024 Personal Safety Answer Date Recorded Have you ever been in or are you currently in a harmful physical or emotional relationship or is someone making you feel afraid or unsafe? Denies 03/17/2024 Sex and Gender Information Value Date Recorded Sex Assigned at Not on file Legal Sex Male 2:48 AM TROUBLE CLERK Gender Identity Not on file Sexual Orientation [...] 1955 Foot Exam 1955 Lipid Panel 1955 Hepatitis B Screening 1973 Abdominal Aortic Aneurysm (A AA) Screen 2020 Well Visit 65+ 2020 Pneumococcal vaccine 65+ (2 of 2 - PCV) 12/31/2022 12/31/2021 Hemoglobin A1C 09/16/2024 03/18/2024, 08/07/2023 Zoster Vaccine (2 of 2) 10/20/2024 08/25/2024 Covid-19 Vaccine ( - 2024-2 6 season) 2025 03/08/2022, 02/11/2022, 04/30/2021, Additional history exists Influenza Vaccine (#1) 2025 , 03/12/2023, 03/08/2022, Additional history exists eGFR 03/17/2025 03/17/2024, 01/2024, 08/07/2023 Fall Risk Assessment 03/19/2025 03/19/2024 DTaP/Tdap/Td Vaccine (3 - Td or Tdap) 08/25/2034 08/25/2024, 07/04/2014 Procedures Procedure Name Priority Date/Time Associated Diagnosis [...] and children were not included. (Diabetes Care 31:[id number], 2008). The eAG is not equivalent to a fasting glucose. Blood 03/18/2024 4:49 AM CDT 03/18/2024 5:04 AM CDT us Kodi Keane MD LAB BLOOD ORDERABLES F inal Result Performing Organization Address [facility]/ZIP Co de Phone Number OT[facility] [address] [place] [employer] [place] [address] * eGFR (03/17/2024 7:27 AM CDT) eGFR [...] BLOOD ORDERABLES Final Result Performing Organization Address City/[facility]/ZIP Co de Phone Number [facility] [address] [place] [place] [address] from Last 3 Months or Most Recently Relevant to Health Maintenance Insurance [facility] [id number] [facility] [id number] Advance Directives For more information, please contact: [phone] * Full Code (Latest Code Status on File) Date Activated Date Inactivated Comments 03/17/2024 2:12 AM 03/19/2024 4:03 PM Care Teams Continuous Linter Drier Operator Relationship Specialty Start Date End Date Cami Ruiz MD [address] [facility] [address] [place] [place] [address] PCP - General Family Practice 06/24/23
--- OUTSIDE RECORDS SUMMARY | 2025-05-18 20:55 | XMS_ITS | Clinical Summary ---
Author Organization [facility] Address [address] [place] [id number] Care Team Providers Care Glass Loading Equipment Tender Name Role Phone Unavailable Primary Care Provider [...] of 2) 2005 COVID-19 Vaccine (1 - 2024-2 6 season) 2025 Influenza Adult (#1) 2025 RSV Immunization or 60+ Years (1 - 1-dose 75+ series) 2030 Hepatitis A Vaccines Aged Out No long er eligible based on patient's age to complete this topic Meningococcal B Vaccine Aged Out No l onger eligible based on patient's age to complete this topic Meningococcal Vaccine Aged Out No dom bill eligible based on patient's age to complete this topic RSV Immunizations Under 20 Months Aged Out No longer eligible based on patient's age to complete this topic
--- OUTSIDE RECORDS SUMMARY | 2025-05-18 20:55 | XMS_ITS | Clinical Summary ---
Author Organization [facility] [address] Address [address] [place] [address] Care Team Providers Care Engagement Engineer Name Role Phone Cami Ruiz MD [...] (1 of 1 - PCV) 05/23/20 05 RSV VACCINE (60+ or ) (1 - Risk 50-74 years 1-dose series) 2005 ZOSTER VACCINE (1 of 2) 2005 INFLUENZA VACCINE (#1) 2025 Care Teams Engagement Engineer Relationship Specialty Start Date End Date Cami Ruiz MD [address] [place] [address] PCP - General Family Practice 03/08/22
== END 2025-05-18 18:18 | disposition home or self-care (01) ==
PROVIDERS: Emergency Provider Emergency Medicine; PCP Family Medicine
DX: B86 Scabies (principal); L29.9 Pruritus, unspecified; R22.41 Localized swelling, mass and lump, right lower limb; E11.22 Type 2 diabetes mellitus with diabetic chronic kidney disease; I12.9 Hypertensive chronic kidney disease with stage 1 through stage 4 chronic kidney disease, or unspecified chronic kidney disease; N18.30 Chronic kidney disease, stage 3 unspecified; E11.42 Type 2 diabetes mellitus with diabetic polyneuropathy; E11.610 Type 2 diabetes mellitus with diabetic neuropathic arthropathy; E78.5 Hyperlipidemia, unspecified; E53.8 Deficiency of other specified B group vitamins; E55.9 Vitamin D deficiency, unspecified; Z86.2 Personal history of diseases of the blood and blood-forming organs and certain disorders involving the immune mechanism; Z79.84 Long term (current) use of oral hypoglycemic drugs; Z79.4 Long term (current) use of insulin; Z79.899 Other long term (current) drug therapy; Z79.82 Long term (current) use of aspirin
CPT/HCPCS: 93971; 99284